=== PATIENT | female | born 1985 | race Caucasian/White ===

== ENCOUNTER 2022-07-20 13:16 | Outpatient (CLI) | payer OTHER, SELFPAY ==
--- OUTSIDE RECORDS SUMMARY | 2022-07-20 13:19 | XMS_ITS | Encounter Summary ---
:1985 Author Organization [place] Address [address] [place] [address] Care Team Providers Name Role Phone Maty Barrett MD Primary Care Provider Reason for Referral Diagnostic Imaging Mammo (Routine) - Pending Review Specialty Diagnoses / Procedures Referred By Contact Refer red To Contact Diagnoses Right axillary swelling Stephanie Barlow MD Procedures MA Diagnostic Bilateral w/Siddharth [place] PIG LEAD MELTER HELPER [address] [facility] [address] [address] [place], [place] [address] Referral ID Status Reason Start Date Expiration Date Visits V isits Requested Authorized [id number] Pending 09/04/2021 09/04/2022 1 1 Review TROMECHANICAL TECHNOLOGIST Reason for Visit Diagnostic Imaging Mammo (Routine) - Pending Review Specialty Diagnoses / Procedures Referred By Contact Refer red To Contact Diagnoses Right axillary swelling Stephanie Barlow MD Procedures MA Diagnostic Bilateral w/Siddharth [place] PIG LEAD MELTER HELPER [address] [place], [place] [address] Referral ID Status Reason Start Date Expiration Date Visits V isits Requested Authorized [id number] Pending 09/04/2021 09/04/2022 1 1 Review Encounter Details Date Type Department Care Team Description 09/11/2021 Hospital Encounter [facility] Stephanie Barlow Right axillary [facility], MD swelling Center [facility] PIG LEAD MELTER HELPER [address] [facility], [address] [place] [address] [phone] Social History Tobacco Use Types Packs/Day Years Used Date Smoking Tobacco: Never Smokeless Tobacco: Never Alcohol Use Standard Drinks/Week Comments No 0 (1 standard drink = 0.6 oz pure alcoho l) Sex Assigned at Date Recorded Not on file COVID-19 Exposure Response Date Recorded In the last month, have you been in contact with No / Unsure 09/11/2021 1:25 PM ELECTROMECHANICAL TECHNOLOGIST someone who was confirmed or suspected to have Coronavirus / COVID-19? documented as of this encounter Medications at Time of Discharge Medication Sig Dispensed Refills Start Date End Date Cranberry 1000 MG CAPS 0 ibuprofen (ADVIL,MOTRIN) Take 1 tablet (600 0 600 MG tabletIndications: mg) by mouth every 6 (spontaneous vaginal hours as needed for delivery) other (cramping) Vit-Fe 0 Fumarate-FA ( VITAMINS PO) documented as of this encounter Plan of Treatment Not on filedocumented as of this encounter Procedures Procedure Name Priority Date/Time Associated Comments Diagnosis MA DIAGNOSTIC Routine 09/11/2021 1:49 PM Right axillary Result s for this BILATERAL W/ SIDDHARTH ELECTROMECHANICAL TECHNOLOGIST swelling procedure are in the results section. documented in this encounter Results MA Diagnostic Bilateral w/Siddharth (09/11/2021 1:49 PM ELECTROMECHANICAL TECHNOLOGIST) Anatomical Region Laterality Modality Breast Bilateral Mammography Specimen (Source) Anatomical Location Collection Method / Collectio n Time Received Time / Laterality Volume Impressions 09/11/2021 2:39 PM ELECTROMECHANICAL TECHNOLOGIST IMPRESSION: BI-RADS CATEGORY: 1 - ??Negative No evidence of malignancy. Results were discussed with the patient during her appointment. As long as her p hysical examination remains stable, routine clinical follow-up would be recommended. RECOMMENDED FOLLOW-UP: Clinical follow-u torrey BROWN MD Narrative 09/11/2021 2:39 PM ELECTROMECHANICAL TECHNOLOGIST MA DIAGNOSTIC BILATERAL W/ SIDDHARTH, US AXILLARY RIGHT - ??09/11/2021 2:38 PM HISTORY: ??Right axillary lump. COMPARISON: ??None. BREAST DENSITY: Heterogeneously dense. FINDINGS: ??Standard bilateral diagnosti c views were obtained, including tomosynthesis. The pattern of glandular tissue is symmetric. There is no mammographic evidence of mal ignancy in either breast. Further evaluation with targeted ultraso und shows only normal glandular tissue in the area of concern. There is no suspicious ultrasound abnormality. Stephanie Barlow MD IMG MAMMOGRAPHY ORDERABLES documented in this encounter Visit Diagnoses Diagnosis Right axillary swelling Swelling of limb documented in this encounter Care Teams Workforce Management Manager Relationship Specialty Start Date End Date Maty Barrett MD PCP - General contact clerk 06/08/17 [facility] AIDES TEACHER CONSULT [address] [phone] documented as of this encounter
--- OUTSIDE RECORDS SUMMARY | 2022-07-20 13:19 | XMS_ITS | Encounter Summary ---
:1985 Author Organization [place] Address [address] [place] [address] Care Team Providers Name Role Phone Maty Barrett MD Primary Care Provider Reason for Referral Diagnostic Imaging Ultrasound (Routine) - Pending Review Specialty Diagnoses / Procedures Referred By Contact Refer red To Contact Diagnoses Right axillary swelling Stephanie Barlow MD Procedures US Axillary Right [place] EMPLOYEE RELATIONS DIRECTOR [address] [facility] [address] [place], [place] [address] Referral ID Status Reason Start Date Expiration Date Visits V isits Requested Authorized [id number] Pending 09/04/2021 09/04/2022 1 1 Review TAPPER Reason for Visit Diagnostic Imaging Ultrasound (Routine) - Pending Review Specialty Diagnoses / Procedures Referred By Contact Refer red To Contact Diagnoses Right axillary swelling Stephanie Barlow MD Procedures US Axillary Right SOUTHDALE EMPLOYEE RELATIONS DIRECTOR [address] [place], [place] [address] Referral ID Status Reason Start Date Expiration Date Visits V isits Requested Authorized [id number] Pending 09/04/2021 09/04/2022 1 1 Review Encounter Details Date Type Department Care Team Description 09/11/2021 Hospital Encounter [facility] Stephanie Barlow Right axillary Max Jama MD swelling Center [facility] EMPLOYEE RELATIONS DIRECTOR [address] [facility], [address] [place] [address] [phone] Social History Tobacco Use Types Packs/Day Years Used Date Smoking Tobacco: Never Smokeless Tobacco: Never Alcohol Use Standard Drinks/Week Comments No 0 (1 standard drink = 0.6 oz pure alcoho l) Sex Assigned at Date Recorded Not on file COVID-19 Exposure Response Date Recorded In the last month, have you been in contact with No / Unsure 09/11/2021 1:25 PM NUT TAPPER someone who was confirmed or suspected to [...] encounter Procedures Procedure Name Priority Date/Time Associated Diagnosis Comme nts US AXILLARY RIGHT Routine 09/11/2021 2:01 PM Right axillary Re sults for this NUT TAPPER swelling procedure are i n the results section. documented in this encounter Results US Axillary Right (09/11/2021 2:01 PM NUT TAPPER) Anatomical Region Laterality Modality Breast Right Ultrasound Specimen (Source) Anatomical Location Collection Method / Collectio n Time Received Time / Laterality Volume Impressions 09/11/2021 2:39 PM NUT TAPPER IMPRESSION: BI-RADS CATEGORY: 1 - ??Negative No evidence of malignancy. Results were discussed with the patient during her appointment. As long as her p hysical examination remains stable, routine clinical follow-up would be recommended. RECOMMENDED FOLLOW-UP: Clinical follow-u pSonja BROWN MD Narrative 09/11/2021 2:39 PM NUT TAPPER MA DIAGNOSTIC BILATERAL W/ AFUA, US AXILLARY RIGHT - ??09/11/2021 2:38 PM [...] suspicious ultrasound abnormality. Stephanie Barlow MD IMG US ORDERABLES documented in this encounter Visit Diagnoses Diagnosis Right axillary swelling Swelling of limb documented in this encounter Care Teams Label Printer Relationship Specialty Start Date End Date Maty Barrett MD PCP - General log skidder 06/08/17 [facility] BOARDMARKER CONSULT [address] [address] documented as of this encounter
--- OUTSIDE RECORDS SUMMARY | 2022-07-20 13:19 | XMS_ITS | Clinical Summary ---
:1985 Author Organization [place] Address [address] [place] [address] Care Team Providers Name Role Phone Maty Barrett MD Primary Care Provider [phone] Allergies No known active allergies Medications Medication Sig Dispensed Refills Start Date End Date Status ibuprofen Take 1 tablet (600 0 03/26/2016 Active (ADVIL,MOTRIN) 600 MG mg) by mouth every tabletIndications: 6 hours as needed (spontaneous vaginal for other delivery) (cramping) Additional Information Patient not taking. Reported on 08/30/2018 Cranberry 1000 MG CAPS 0 Active Vit-Fe Fumarate-FA ( VITAMINS PO) 0 Active Active Problems Problem Noted Date Vaginal delivery 07/19/2020 Uterine contractions during 07/18/2020 Supervision of high-risk 03/24/2016 (spontaneous vaginal delivery) 03/24/2016 Indication for care in labor or delivery 03/23/2016 Resolved Problems Problem Noted Date Resolved Date Urinary frequency 03/07/2018 05/11/2018 Urinary urgency 03/07/2018 05/11/2018 Encounters Date Type Specialty Care Team Description 06/12/2022 Office Visit Urgent Care Deon Weiner PA-C Acute bilateral low back pain without sciatica (Primary Dx); Suprapubic pain , acute 06/12/2022 Travel from Last 3 Months Immunizations Name Administration Dates Next Due Influenza Vaccine IM > 6 months Valent IIV4 07/02/2020 (Alfuria,Fluzone) Family History Medical History Relation Comments Cancer Maternal Grandfather Diabetes Maternal Grandmother Relation Status Comments Brother Alive Father Alive Maternal Grandfather Maternal Grandmother Alive Mother Alive Paternal Grandfather Paternal Grandmother Sister 1 Alive Sister 2 Alive Sister 3 Alive Social History Tobacco Use Types Packs/Day Years Used Date Smoking Tobacco: Never Smokeless Tobacco: Never Alcohol Use Standard Drinks/Week Comments No 0 (1 standard drink = 0.6 oz pure alcoho l) Sex Assigned at Date Recorded Not on file Last Filed Vital Signs Vital Sign Reading Time Taken Comments Blood Pressure 120/70 06/12/2022 4:23 PM CDT Pulse 100 06/12/2022 4:23 PM CDT Temperature 36.7 ??C (98 ??F) 06/12/2022 4:23 PM CDT Respiratory Rate 18 07/20/2020 9:28 AM CDT Oxygen Saturation 98% 06/12/2022 4:23 PM CDT Inhaled Oxygen Concentration - - Weight 54.4 kg (120 lb) 06/12/2022 4:23 PM CDT Height 170.2 cm (5' 7) 07/18/2020 3:06 PM CDT Body Mass Index 18.79 07/18/2020 3:06 PM CDT Plan of Treatment Health Maintenance Due Date Last Done Comments ADVANCE CARE PLANNING 1985 ANNUAL REVIEW OF HM ORDERS 1985 HEPATITIS C SCREENING 2002 PAP 2005 YEARLY PREVENTIVE VISIT 06/21/2020 06/21/2019 PHQ-2 (once per calendar 10/10/2021 year) COVID-19 Vaccine (3 - Booster 12/13/2021 10/18/2021, for Pfizer series) 09/27/2021 INFLUENZA VACCINE (#1) 2022 07/02/2020, 06/20/2019, 09/02/2015 DTAP/TDAP/TD IMMUNIZATION (3 04/29/2030 04/29/2020, - Td or Tdap) 02/10/2016 HIV SCREENING Completed 09/02/2015 HEPATITIS B IMMUNIZATION Aged Out No long er eligible based on patient's age to complete this to pic IPV IMMUNIZATION Aged Out No longer eligi ble based on patient's age to complete this to pic MENINGITIS IMMUNIZATION Aged Out No longe r eligible based on patient's age to complete this to pic Pneumococcal Vaccine: Aged Out No longer eligible based Pediatrics (0 to 5 Years) and on patient's age to At-Risk Patients (6 to 64 comple te this topic Years) Procedures Procedure Name Priority Date/Time Associated Comments Diagnosis URINE CULTURE Routine 06/12/2022 4:34 PM Results for this CDT procedure are i n the results section. URINE MICROSCOPIC Routine 06/12/2022 4:21 PM Resu lts for this CDT procedure are i n the results section. UA MACROSCOPIC WITH Routine 06/12/2022 4:21 PM Re sults for this REFLEX TO MICRO AND CDT procedur e are in CULTURE the results section. from Last 3 Months Results Urine Culture (06/12/2022 4:34 PM CDT) [facility] Method Time Signature Culture <10,000 CFU/mL CRISTOBAL 06/14/2022 [facility] IDD Urogenital 1:29 PM CDT LABORATORY pauly Specimen Anatomical Collection Method Collection Time Receive d Time (Source) Location / / Volume Laterality Urine MID-STREAM URINE Non-blood 06/12/2022 4:34 PM 06/12 4:34 SPECIMEN / Unknown Collection / CDT PM CDT Unknown Deon Weiner PA-C LAB - MICRO GENERAL ORDERABL ES Performing Organization Address City/State/ZIP Code Phon e Number U[facility] IDD LABORATORY [facility] [place] [address] Diag. Lab [address] [facility], Room [address]297 (ABNORMAL) Urine Microscopic (06/12/2022 4:21 PM CDT) [facility] Method Time Signature Bacteria Urine Few (A) None Seen CRISTOBAL 06/12/2022 [facility] LAB[facility]ATORY /HPF 4:26 PM CDT RBC Urine 5-10 (A) 0-2 /HPF CRISTOBAL 06/12/2022 [facility] /HPF 4:26 PM CDT WBC Urine 0-5 0-5 /HPF CRISTOBAL 06/12/2022 [facility] /HPF 4:26 PM CDT Squamous Few (A) None Seen CRISTOBAL 06/12/2022 [facility] LABORATORY Epithelials /LPF 4:26 PM CDT Urine Specimen Anatomical Collection Method Collection Time Receive d Time (Source) Location / / Volume Laterality Urine MID-STREAM URINE Non-blood 06/12/2022 4:21 PM 06/12 4:21 SPECIMEN / Unknown Collection / CDT PM CDT Unknown Narrative [facility] - 06/12/2022 4:26 PM CDT Urine Culture not indicated Francisca Chappell PA-C LAB - URINE ORDERABLES Performing Organization Address City/State/ZIP Code [place] [address] Lab [address] [facility] Lab (no room number, 1st floor of clinic) [place] [address], [facility] [address] [facility] Lab (no room number, 1st floor of clinic) (ABNORMAL) UA Macro with Reflex to Micro and Culture - lab collect (06/12/2022 4:21 PM CDT) [facility] Method Time Signature Color Urine Yellow Colorless, 06/12/2022 LABORATORY Straw, 4:23 PM CDT Light Yellow, Yellow Appearance Urine Clear Clear 06/12/2022 LV LABORATOR Y 4:23 PM CDT Glucose Urine Negative Negative 06/12/2022 LABORATORY mg/dL 4:23 PM CDT Bilirubin Urine Negative Negative 06/12/2022 LABORATORY 4:23 PM CDT Ketones Urine 80 (A) Negative 06/12/2022 LABORATORY mg/dL 4:23 PM CDT Specific [place] 1.025 1.003 - 06/12/2022 LV LABORATOR Y Urine 1.035 4:23 PM CDT Blood Urine Moderate Negative 06/12/2022 LABORATORY (A) 4:23 PM CDT pH Urine 5.5 5.0 - 7.0 06/12/2022 [facility] LAB[facility]AT[facility] 4:23 PM CDT Protein Albumin Negative Negative 06/12/2022 LABORATORY Urine mg/dL 4:23 PM CDT Urobilinogen 0.2 0.2, 1.0 06/12/2022 LABORATORY Urine E.U./dL 4:23 PM CDT Nitrite Urine Negative Negative 06/12/2022 LABORATORY 4:23 PM CDT Leukocyte Negative Negative 06/12/2022 LABORATORY Esterase Urine 4:23 PM CDT Specimen Anatomical Collection Method Collection Time Receive d Time (Source) Location / / Volume Laterality Urine MID-STREAM URINE Non-blood 06/12/2022 4:21 PM 06/12 4:21 SPECIMEN / Unknown Collection / CDT PM CDT Unknown Francisca Chappell PA-C LAB - URINE ORDERABLES Performing Organization Address City/State/ZIP Code Phon e Number LV LABORATORY [facility] [place] [phone] Lab [address] [facility] (no room number, 1st floor of clinic) [place] [address], [facility] [address] [facility] (no room number, 1st floor of clinic) from Last 3 Months Insurance Payer Benefit Plan / Subscriber ID Effective Phone Address [employer] Group Dates [facility] [id number] 2021-Pres [phone] [address] O OPEN ACCESS ent [address] [place] [address] Care Teams Parks Worker Relationship Specialty Start Date End Date Maty Barrett MD PCP - General dramatic director 06/08/17 [facility] TOY ELECTRIC TRAIN REPAIRER CONSULT [address] [place] [address]
--- OUTSIDE RECORDS SUMMARY | 2022-07-20 13:19 | XMS_ITS | Encounter Summary ---
:1985 Author Organization [place] Address [address] [place] [address]. [place] [address] Care Team Providers Name Role Phone Maty Barrett MD Primary Care Provider [phone] Reason for Visit Reason Comments UTI Slight pelvic pressure and b ack pain/ Tuesday Encounter Details Date Type Department Care Team Description 06/12/[address] [facility] Deon Weiner, Acute bilateral low back pain without sciatica (Primary Dx); Urgent Care PA-C Suprapubic pain, acute [facility] [address] [place], [place] [address] [address] [place], [place] [address] (Wo rk) Social History Tobacco Use Types Packs/Day Years Used Date Smoking Tobacco: Never Smokeless Tobacco: Never Alcohol Use Standard Drinks/Week Comments No 0 (1 standard drink = 0.6 oz pure alcoho l) Sex Assigned at Date Recorded Not on file COVID-19 Exposure Response Date Recorded In the last 10 days, have you been in contact with No / Unsu re 06/12/2022 4:13 PM CDT someone who was confirmed or suspected to have Coronavirus/COVID-19? documented as of this encounter Last Filed Vital Signs Vital Sign Reading Time Taken Comments Blood Pressure 120/70 06/12/2022 4:23 PM CDT Pulse 100 06/12/2022 4:23 PM CDT Temperature 36.7 ??C (98 ??F) 06/12/2022 4:23 PM CDT Respiratory Rate - - Oxygen Saturation 98% 06/12/2022 4:23 PM CDT Inhaled Oxygen Concentration - - Weight 54.4 kg (120 lb) 06/12/2022 4:23 PM CDT Height - - Body Mass Index 18.79 07/18/2020 3:06 PM CDT documented in this encounter Progress Notes Deon Weiner PA-C - 06/12/2022 4:10 PM CDT Images from the original note were not included. Assessment & Plan 1. Acute bilateral low back pain without sciatica Mild intermittent 2. Suprapubic pain, acute Mild intermittent UA shows few bacteria with some blood. Could be more of a MSK problem. Trial of anti-bacterial for symptoms while UC is pending. Follow up in clinic if not improving over the next week. Deon Weiner PA-C [facility] Tessa Soto is a 37 year old female who presents to clinic today for the following health issues: Chief Complaint Patient presents with ??? UTI Slight pelvic pressure and back pain/ Tuesday HPI Here today for intermittent back and lower abdominal pain intermittent over the past 3-4 days. No dysuria. Yesterday some increased urination. No urgency of urination. No vaginal discharge. No pinknessor redness. No fever. No fatigue. No menstruation. History of hematuria at times in the past in the urine. Review of Systems Objective BP 120/70 (BP Location: Right arm) Pulse 100 Temp 98 ??F (36.7 ??C) (Tympanic) Wt 54.4 kg (120lb) SpO2 98% BMI 18.79 kg/m?? Physical Exam Abdominal: General: Abdomen is flat. Bowel sounds are normal. Palpations: Abdomen is soft. Tenderness: There is abdominal tenderness. There is no right CVA tenderness or left CVA tenderness. documented in this encounter Plan of Treatment Not on [...] e are in CULTURE the results section. documented in this encounter Results Urine Culture (06/12/2022 4:34 PM CDT) [facility] Method Time Signature Culture <10,000 CFU/mL CRISTOBAL 06/14/2022 [facility] ID[facility] Urogenital 1:29 PM CDT LABORATORY pauly Specimen Anatomical Collection Method Collection Time Receive d Time (Source) Location / / Volume Laterality Urine MID-STREAM URINE Non-blood 06/12/2022 4:34 PM 06/12 4:34 SPECIMEN / Unknown Collection / CDT PM CDT Unknown Deon Weiner PA-C LAB - MICRO GENERAL ORDERABL ES Performing Organization Address City/[facility]/ZIP Code Phon e Number UU IDD LABORATORY [facility] [place] [address] Diag. Lab [address] [facility], Room [address]297 (ABNORMAL) Urine Microscopic (06/12/2022 4:21 PM CDT) [facility] Method Time Signature Bacteria Urine Few [...] City/State/ZIP Code Phon [place] [address] Lab [address] [facility] Lab (no room number, 1st floor of clinic) [place] [address], [facility] [address] [facility] Lab (no room number, 1st floor of clinic) (ABNORMAL) UA Macro with Reflex to Micro and Culture - lab collect (06/12/2022 4:21 PM CDT) [facility] gist Method Time Signature Color Urine Yellow Colorless, 06/12/2022 [facility] LABORATORY Straw, 4:23 PM CDT Light Yellow, Yellow Appearance Urine Clear Clear 06/12/2022 LV LABORATOR Y 4:23 PM CDT Glucose Urine Negative Negative 06/12/2022 LABORATORY mg/dL 4:23 PM CDT Bilirubin Urine Negative Negative 06/12/2022 LV LABORATORY 4:23 PM CDT Ketones Urine 80 (A) Negative 06/12/2022 LABORATORY mg/dL 4:23 PM CDT Specific [place] 1.025 1.003 - 06/12/2022 LV LABORATOR Y Urine 1.035 4:23 PM CDT Blood Urine Moderate Negative 06/12/2022 LABORATORY (A) 4:23 PM CDT pH Urine 5.5 5.0 - 7.0 06/12/2022 LV LABORATORY 4:23 PM CDT Protein Albumin Negative Negative 06/12/2022 LV LABORATORY Urine mg/dL 4:23 PM CDT Urobilinogen 0.2 0.2, 1.0 06/12/2022 LABORATORY Urine E.U./dL 4:23 PM CDT Nitrite Urine Negative Negative 06/12/2022 [facility] LAB[facility] 4:23 PM CDT Leukocyte Negative Negative 06/12/2022 LV LABORATORY Esterase Urine 4:23 PM CDT Specimen Anatomical Collection Method Collection Time Receive d Time (Source) Location / / Volume Laterality Urine MID-STREAM URINE Non-blood 06/12/2022 4:21 PM 06/12 4:21 SPECIMEN / Unknown Collection / CDT PM CDT Unknown Francisca Chappell PA-C LAB - URINE ORDERABLES Performing Organization Address City/State/ZIP Code [place] [address] Lab [address] [facility] Lab (no room number, 1st floor of clinic) [place] [address], [facility] [address] [facility] Lab (no room number, 1st floor of clinic) documented in this encounter Visit Diagnoses Diagnosis Acute bilateral low back pain without sc iatica - Primary Suprapubic pain, acute Abdominal pain, other specified site documented in this encounter Care Teams Mainframe Applications Developer Relationship Specialty Start Date End Date Maty Barrett MD PCP - General digital marketing strategist 06/08/17 [facility] STRAPPER AND BUFFER CONSULT [address] [address] documented as of this encounter
--- OUTSIDE RECORDS SUMMARY | 2022-07-20 13:19 | XMS_ITS | Encounter Summary ---
:1985 Author Organization [place] Address [address] [place] [address] Care Team Providers Name Role Phone Maty Barrett MD Primary Care Provider [phone] Encounter Details Date Type Department Care Team Description 09/11/2021 Travel Social History Tobacco Use Types Packs/Day Years Used Date Smoking Tobacco: Never Smokeless Tobacco: Never Alcohol Use Standard Drinks/Week Comments No 0 (1 standard drink = 0.6 oz pure alcoho l) Sex Assigned at Date Recorded Not on file COVID-19 Exposure Response Date Recorded In the last month, have you been in contact with No / Unsure 09/11/2021 1:25 PM LACQUERER someone who was confirmed or suspected to have Coronavirus / COVID-19? documented as of this encounter Plan of Treatment Not on filedocumented as of this encounter Visit Diagnoses Not on filedocumented in this encounter Care Teams Rig Operator Relationship Specialty Start Date End Date Maty Barrett MD PCP - General child nutrition assistant 06/08/17 [facility] FINISHING MACHINE OPERATOR CONSULT [address] [place] [address] documented as of this encounter
--- OUTSIDE RECORDS SUMMARY | 2022-07-20 13:19 | XMS_ITS | Encounter Summary ---
:1985 Author Organization [place] Address [address] [place] [address] Care Team Providers Name Role Phone Maty Barrett MD Primary Care Provider [phone] Encounter Details Date Type Department Care Team Description 06/12/2022 Travel Social History Tobacco Use Types Packs/Day [...] have Coronavirus/COVID-19? documented as of this encounter Plan of Treatment Not on filedocumented as of this encounter Visit Diagnoses Not on filedocumented in this encounter Care Teams Numerical Analysis Group Manager Relationship Specialty Start Date End Date Maty Barrett MD PCP - General executive marketing assistant 06/08/17 [facility] CONSTRUCTION SCHEDULER CONSULT [address] [place] [address] documented as of this encounter
--- OUTSIDE RECORDS SUMMARY | 2022-07-20 13:20 | XMS_ITS | Encounter Summary ---
:1985 Author Organization [facility] Address [address] [place] [address] Care Team Providers Name Role Phone Maty Barrett MD Primary Care Provider [phone] Encounter Details Date Type Department Care Team Description 07/18/2020 Travel Social History Tobacco Use Types Packs/Day Years Used Date Smoking Tobacco: Never Smokeless Tobacco: Never Alcohol Use Standard Drinks/Week Comments No 0 (1 standard drink = 0.6 oz pure alcoho l) Sex Assigned at Date Recorded Not on file documented as of this encounter Plan of Treatment Not on filedocumented as of this encounter Visit Diagnoses Not on filedocumented in this encounter Care Teams Pilates Coordinator Relationship Specialty Start Date End Date Maty Barrett MD PCP - General contract technician 06/08/17 [facility] CHIEF STEWARD/STEWARDESS CONSULT [address] [phone] documented as of this encounter
--- OUTSIDE RECORDS SUMMARY | 2022-07-20 13:20 | XMS_ITS | Encounter Summary ---
:1985 Author Organization [facility] Address [address] [place] [address]. [place] [address] Care Team Providers Name Role Phone Maty Barrett MD Primary Care Provider [phone] Reason for Visit ANI Physical Therapy (Routine) - Closed Specialty Diagnoses / Procedures Referred By Contact Refer red To Contact Physical Therapy Diagnoses >4 Urgency / FernandoCaity See MD David @ UROLOGIC PHY JANINE / BCBS FernandoCaity See Breonna Hernandez Patricia, PT Procedures FWO INITIAL [address] [address] [place], [place] [address] Referral ID Status Reason Start Date Expiration Date Visits V isits Requested Authorized ANI/BC/URGENCY Closed 03/07/2018 10/09/2018 40 38 Encounter Details Date Type Department Care Team Description 03/07/2018 Therapy Visit [facility] Mckenzie Ravi Urin ary frequency (Primary Dx); Rehabilitation Services PT Urinary urgency [place] [id number] [place] [id number] Social History Tobacco Use Types Packs/Day Years Used Date Smoking Tobacco: Never Smokeless Tobacco: Never Alcohol Use Standard Drinks/Week Comments No 0 (1 standard drink = 0.6 oz pure alcoho l) Sex Assigned at Date Recorded Not on file documented as of this encounter Progress Notes Mckenzie Ravi, PT - 03/07/2018 10:50 AM CDT [facility] Initial Evaluation Subjective: Patient is a 32 year old female presenting with rehab pelvic hpi. The history is provided by the patient. 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 Patient has chief complaint of intermittent urinary urge and frequency which started suddenly and insidiously last January 2017. She initially had pressure in lower abdomen, sometimes after voiding. She was tested for bladder infections (negative). She has always had a small bladder and get up 1x/night. History of vaginal delivery 2 years ago. History of low back pain, L>R, for many years, with scoliosis and no radiating symptoms. She has intermittent low back pain with prolonged standing. Nodyspareunia.. Patient reports pain: Lower lumbar spine. Pain is described as aching and is intermittent and reported as 2/10. Since onset symptoms are gradually improving. General health as reported by patient is excellent. Objective: System Lumbar/SI Evaluation ROM: AROM Lumbar: Flexion: To ankles Ext: 70% pain Side Bend: Left: 90% pulls Right: 90% pulls Rotation: Left: 100% Right: 100% Side [place]: Left: 80% pulls Right: 90% Lumbar Myotomes: normal Lumbar DTR's: normal Lumbar Dermtomes: normal Pelvic Dysfunction Evaluation: Bladder/Pelvic Problems: Storage Problem: Frequency and urgency Diagnostic Tests: UA/Urine Sample: Negative; history of UTI 3 years ago, none recently Flexibility: normal Pelvic Clock Exam: Ischiocavernosis pain: - Bulbocavernosis pain: - Transverse Perineal: - Levator ANI: - Perineal Body: - External Assessment: Skin Condition: Normal Scars: Well healed Bearing Down/Coughing: Cystocele Tissue Symmetry: Normal Introitus: Normal Muscle Contraction/Perineal Mobility: Elevation and urogential triangle descent Internal Assessment: Internal assessment pelvic: moderate tenderness left levator ani; mild tenderness right levator ani anteriorly only. Sensory Exam: Normal Contraction/Grade: Good squeeze, good hold with lift, repeatable (4) Additional History: Delivery History: Vaginal delivery Number of Pregnancies: 1 Number of Live Births: 1 General ROS Assessment/Plan: Patient is a 32 year old female with pelvic complaints. Patient has the following significant findings with corresponding treatment plan. Diagnosis 1: Urinary frequency and urge Pain - self management and home program Decreased ROM/flexibility - manual therapy, therapeutic exercise and home program Impaired muscle performance - neuro re-education and home program Decreased function - therapeutic activities and home program Therapy Evaluation Codes: 1) History comprised of: Personal factors that impact the plan of care: None. Comorbidity factors that impact the plan of care are: None. Medications impacting care: None. 2) Examination of Body Systems comprised of: Body structures and functions that impact the plan of care: Lumbar spine and Pelvis. Activity limitations that impact the plan of care are: Standing, Frequency and Urgency. 3) Clinical presentation characteristics are: Stable/Uncomplicated. 4) Decision-Making Low complexity using standardized patient assessment instrument and/or measureable assessment of functional outcome. Cumulative Therapy Evaluation is: Low complexity. Previous and current functional limitations: (See Goal Flow Sheet for this information) Short term and buttermaker continuous churn goals: (See Goal Flow Sheet for this information) Communication ability: Patient appears to be able to clearly communicate and understand verbal and written communication and follow directions correctly. Treatment Explanation - The following has been discussed with the patient: RX ordered/plan of care Anticipated outcomes Possible risks and side effects This patient would benefit from PT intervention to resume normal activities. Rehab potential is good. Frequency: 1 X week, once daily Duration: for 8 weeks Discharge Plan: Achieve all LTG. Independent in home treatment program. Reach maximal therapeutic benefit. Please refer to the daily flowsheet for treatment today, total treatment time and time spent performing 1:1 timed codes. Amy Soriano PTA - 03/07/2018 10:50 AM CDT [facility] Initial Evaluation Subjective: Patient is a 32 year old female presenting with rehab left ankle/foot hpi. Other surgeries include: Other (jaw surgery). Medication history: control. Current occupationis facility coordinator/HR. Primary job tasks include: Prolonged sitting (computer work). Red flags: Changes in bowel/bladder. Objective: System Physical Exam General ROS Assessment/Plan: documented in this encounter Plan of Treatment Not on filedocumented as of this encounter Procedures Procedure Name Priority Date/Time Associated Diagnosis Comme nts [facility] SELF CARE MNGMENT Routine 03/07/2018 12:16 PM Urinar y frequency TRAINING CDT Urinary urgency [facility] THERAPEUTIC Routine 03/07/2018 12:16 PM Urinary freq uency EXERCISES CDT Urinary urgency documented in this encounter Visit Diagnoses Diagnosis Urinary frequency - Primary Urinary urgency Urgency of urination documented in this encounter Care Teams Venue Attendant Relationship Specialty Start Date End Date Maty Barrett MD PCP - General avionics system engineer 06/08/17 [facility] FORENSIC SERGEANT CONSULT [address] [phone] documented as of this encounter
--- OUTSIDE RECORDS SUMMARY | 2022-07-20 13:20 | XMS_ITS | Encounter Summary ---
:1985 Author Organization [facility] Address [address] [place] [address]. [place] [address] Care Team Providers Name Role Phone Maty Barrett MD Primary Care Provider [phone] Reason for Visit Reason Comments Cystoscopy Pt with a history of microsc opic hematuria and urgency-frequency syndrome here for a cysto. Encounter Details Date Type Department Care Team Description 08/30/2018 Office Visit [facility] Caity King See Urgenc y-frequency syndrome (Primary Dx); Urology Clinic Janine Hernandez MD Asymptomatic microscopic hematuria [phone] [facility] [address] [facility] [address] [facility] [address] [place] [address] [place], [place] [phone] [address] Social History Tobacco Use Types Packs/Day Years Used Date Smoking Tobacco: Never Smokeless Tobacco: Never Alcohol Use Standard Drinks/Week Comments No 0 (1 standard drink = 0.6 oz pure alcoho l) Sex Assigned at Date Recorded Not on file documented as of this encounter Last Filed Vital Signs Vital Sign Reading Time Taken Comments Blood Pressure 128/70 08/30/2018 3:12 PM MICROBIOLOGY LAB ANALYST Pulse - - Temperature - - Respiratory Rate - - Oxygen Saturation - - Inhaled Oxygen Concentration - - Weight 54.4 kg (120 lb) 08/30/2018 3:12 PM MICROBIOLOGY LAB ANALYST Height 167.6 cm (5' 6) 08/30/2018 3:12 PM MICROBIOLOGY LAB ANALYST Body Mass Index 19.37 08/30/2018 3:12 PM MICROBIOLOGY LAB ANALYST documented in this encounter Patient Instructions Patient InstructionsFok, Caity See David, MD - 08/30/2018 3:43 PM CST Per the AUA guidelines you can have yearly urinalyses. If you have two consecutive negative annual microscopic urinalyses no further urinalyses are indicated for this purpose. If you have persistent orrecurrent asymptomatic microscopic hematuria then would consider nephrology evaluation in the short t erm and urologic evaluation in 3-5 years AFTER YOUR CYSTOSCOPY ? You have just completed a cystoscopy, or cysto, which allowed your physician to learn more about your bladder (or to remove a stent placed after surgery). We suggest that you continue to avoid caffeine, fruit juice, and alcohol for the next 24 hours, however, you are encouraged to return to your normal activities. ? A few things that are considered normal after your cystoscopy: ?? * Small amount of bleeding (or spotting) that clears within the next 24 hours ?? * Slight burning sensation with urination ?? * Sensation to of needing to avoid more frequently ?? * The feeling of air in your urine ?? * Mild discomfort that is relieved with Tylenol ? Please contact our office promptly if you: ?? * Develop a fever above 101 degrees ?? * Are unable to urinate ?? * Develop bright red blood that does not stop ?? * Severe pain or swelling ? Please contact our office with any concerns or questions @[phone] OBIOLOGY LAB ANALYST documented in this encounter Progress Notes Caity King MD - 08/30/2018 3:00 PM CST August 30, 2018 Return visit Patient returns today for follow up of microscopic hematuria with a small lesion seen on last cystoscopy. She denies any changes in her health since last visit. BP 128/70 Ht 1.676 m (5' 6) Wt 54.4 kg (120 lb) BMI 19.37 kg/m2 She is comfortable, in no distress, non-labored breathing. Abdomen is soft, non- tender, non-distended. Normal external female genitalia. Negative MICROBIOLOGY LAB ANALYST. Pelvic exam is unremarkable. Cystoscopy Note: After informed consent was obtained patient was prepped and draped in the standard fashion. The flexible cystoscope was inserted into a normal appearing urethral meatus. The urotheliumwas carefully examined and there were no tumors, masses, stones, foreign bodies, or other urothelialabnormalities noted. Bilateral ureteral orifices were noted in the normal orthotopic position and both effluxed clear urine. The cystoscope was retroflexed and the bladder neck was unremarkable. The urethra was carefully examined upon removing the cystoscope and was unremarkable. Patient tolerated theprocedure without complications noted. A/P: 33 year old F with asymptomatic microscopic hematuria We discussed that at this time we would recommend observation. Per the AUA guidelines she can have yearly urinalyses. If she has two consecutive negative annual urinalyses no further urinalyses are indicated for this purpose. If she has persistent or recurrent asymptomatic microscopic hematuria then would consider nephrology evaluation in the short term and urologic evaluation in 3-5 years She will return as needed Caity King MD MPH Keymodule Assembly Machine Tender of Urology CC Patient Care Team: Maty Barrett MD as PCP - General (software quality automation engineer) OBIOLOGY LAB ANALYST documented in this encounter Nursing Notes Brielle Perdue CMA - 08/30/2018 3:00 PM CST Chief Complaint Patient presents with ??? Cystoscopy Pt with a history of microscopic hematuria and urgency-frequency syndrome here for a cysto. Brielle Perdue Invasive Procedure Safety Checklist: Procedure: Action: Complete sections and checkboxes as appropriate. Pre-procedure: 1. Patient ID Verified with 2 identifiers (Nohemi and or MRN) : YES 2. Procedure and site verified with patient/designee (when able) : YES 3. Accurate consent documentation in medical record : YES 4. H&P (or appropriate assessment) documented in medical record : YES H&P must be up to 30 days prior to procedure an updated within 24 hours of Procedure as applicable. 5. Relevant diagnostic and radiology test results appropriately labeled and displayed as applicable : YES 6. Blood products, implants, devices, and/or special equipment available for the procedure as applicable : YES 7. Procedure site(s) marked with provider initials [Exclusions: N/A] : NO 8. Marking not required. Reason : Yes Procedure does not require site marking Time Out: Time-Out performed immediately prior to starting procedure, including verbal and active participation of all team members addressing: YES 1. Correct patient identity. 2. Confirmed that the correct side and site are marked. 3. An accurate procedure to be done. 4. Agreement on the procedure to be done. 5. Correct patient position. 6. Relevant images and results are properly labeled and appropriately displayed. 7. The need to administer antibiotics or fluids for irrigation purposes during the procedure as applicable. 8. Safety precautions based on patient history or medication use. During Procedure: Verification of correct person, site, and procedure occurs any time the responsibility for care of the patient is transferred to another member of the care team. The following medication was given: MEDICATION: Uro-Jet ROUTE: Urethral SITE: Urethra via the meatus DOSE: 5 mL LOT #: [id number] INTERFACE DEVELOPER: [employer] EXPIRATION DATE: 12-[address] [facility]#: [id number] Was there drug waste? No Multi-dose vial: No Brielle Perdue CMA August 30, 2018 OBIOLOGY LAB ANALYST documented in this encounter Plan of Treatment Not on filedocumented as of this encounter Procedures Procedure Name Priority Date/Time Associated Comments Diagnosis HC CYSTOURETHROSCOPY Routine 08/30/2018 3:43 Urgency-frequency PM MICROBIOLOGY LAB ANALYST syndrome Asymptomatic microscopic hematuria URINE MACROSCOPIC ONLY Routine 08/30/2018 3:22 Urgency-frequen cy Results for this PM MICROBIOLOGY LAB ANALYST syndrome procedure are i n the results section. documented in this encounter Results (ABNORMAL) UA without Microscopic (08/30/2018 3:22 PM MICROBIOLOGY LAB ANALYST) [facility] Method Time Signature Color Urine Yellow 08/30/2018 [facility] 3:26 PM MICROBIOLOGY LAB ANALYST [facility] Appearance Urine Clear 08/30/2018 [facility] 3:26 PM MICROBIOLOGY LAB ANALYST [facility] Glucose Urine Negative NEG^Negat 08/30/2018 J[facility] evan mg/dL 3:26 PM MICROBIOLOGY LAB ANALYST [facility] Bilirubin Urine Negative NEG^Negat 08/30/2018 [facility] evan 3:26 PM MICROBIOLOGY LAB ANALYST [facility] Ketones Urine Negative NEG^Negat 08/30/2018 [facility] evan mg/dL 3:26 PM MICROBIOLOGY LAB ANALYST [facility] Specific [place] 1.010 1.003 - 08/30/2018 [facility] Urine 1.035 3:26 PM MICROBIOLOGY LAB ANALYST [facility] Blood Urine Trace (A) NEG^Negat 08/30/2018 [facility] evan 3:26 PM MICROBIOLOGY LAB ANALYST [facility] pH Urine 7.0 5.0 - 7.0 08/30/2018 [facility] pH 3:26 PM MICROBIOLOGY LAB ANALYST [facility] Protein Albumin Negative NEG^Negat 08/30/2018 [facility] Urine evan mg/dL 3:26 PM MICROBIOLOGY LAB ANALYST [facility] Urobilinogen 0.2 0.2 - 1.0 08/30/2018 [facility] Urine EU/dL 3:26 PM MICROBIOLOGY LAB ANALYST [facility] Nitrite Urine Negative NEG^Negat 08/30/2018 [facility] evan 3:26 PM MICROBIOLOGY LAB ANALYST [facility] Leukocyte Negative NEG^Negat 08/30/2018 [facility] Esterase Urine evan 3:26 PM MICROBIOLOGY LAB ANALYST [facility] Source Midstream 08/30/2018 [facility] Urine 3:24 PM MICROBIOLOGY LAB ANALYST [facility] Specimen (Source) Anatomical Collection Method Collection Time Re ceived Time Location / / Volume Laterality Examination of 08/30/2018 3:22 08/30/2018 3:24 midstream urine PM MICROBIOLOGY LAB ANALYST PM MICROBIOLOGY LAB ANALYST specimen (procedure) Caity King MD LAB - URINE ORDERABLES Performing Organization Address City/State/ZIP Code Phon e Number [facility] [address] [place] [phone] [address] documented in this encounter Visit Diagnoses Diagnosis 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
--- OUTSIDE RECORDS SUMMARY | 2022-07-20 13:20 | XMS_ITS | Encounter Summary ---
:1985 Author Organization [facility] Address [address] [place] [address]. [place] [address] Care Team Providers Name Role Phone Maty Barrett MD Primary Care Provider [phone] Reason for Visit ANI Physical Therapy (Routine) - Closed Specialty Diagnoses / Procedures Referred By Contact Refer red To Contact Physical Therapy Diagnoses >4 Urgency / Fernando, Caity See MD David @ UROLOGIC PHY JANINE / BCBS Fernando, Caity See Breonna Hernandez Patricia, PT Procedures F[facility] INITIAL [facility] [address] [address] [place], [place] [address] Referral ID Status Reason Start Date Expiration Date Visits V isits Requested Authorized ANI/BC/URGENCY Closed 03/07/2018 10/09/2018 40 38 Encounter Details Date Type Department Care Team Description 03/14/2018 Therapy Visit [facility] Mckenzie Ravi Urin ary frequency; Rehabilitation Services PT Urinary urgency [place] [id number] [place] [phone] Social History Tobacco Use Types Packs/Day Years Used Date Smoking Tobacco: Never Smokeless Tobacco: Never Alcohol Use Standard Drinks/Week Comments No 0 (1 standard drink = 0.6 oz pure alcoho l) Sex Assigned at Date Recorded Not on file documented as of this encounter Progress Notes Mckenzie Ravi PT - 03/14/2018 9:30 AM CDT Subjective: HPI Objective: System Physical Exam General ROS Assessment/Plan: DISCHARGE REPORT Progress reporting period is from 03/07/2018 to 03/14/2018. SUBJECTIVE Subjective: Patient reports decreased urge with urge suppression techniques.She now is getting up only 1x at night to void. She is voiding every 2 hours during the day instead of every hour. No change in low back pain with exercises. Current Pain level: 2/10 Initial Pain level: 2/10 OBJECTIVE Objective: Significant improvement in levator ani tightness. Good awareness of pelvic floor muscles and is able to relax them. Added core strength exercises and tolerated well ASSESSMENT/PLAN STG/LTGs have been met or progress has been made towards goals: Yes (See Goal flow sheet completed today.) Assessment of Progress: The patient's condition is improving. The patient's condition has potential to improve. Self Management Plans: Patient is independent in a home treatment program. Patient is independent in self management of symptoms. Brittany continues to require the following intervention to meet STG and LTG's: PT intervention is no longer required to meet STG/LTG. The patient is returning to your office for a recheck appointment. Recommendations: This patient is ready to be discharged from therapy and continue their home treatment program. Please refer to the daily flowsheet for treatment today, total treatment time and time spent performing 1:1 timed codes. documented in this encounter Miscellaneous Notes Addendum Note - Mckenzie Ravi PT - 05/11/2018 1:06 PM CDT Addended by: MCKENZIE RAVI on: 05/11/2018 01:06 PM Modules accepted: Orders documented in this encounter Plan of Treatment Not on filedocumented as of this encounter Procedures Procedure Name Priority Date/Time Associated Diagnosis Comme [facility] Z MANUAL THER Routine 03/14/2018 10:07 AM Urinary freq uency TECH,1+REGIONS,EA 15 MIN CDT Urinary urgency Z THERAPEUTIC Routine 03/14/2018 10:07 AM Urinary freq uency EXERCISES CDT Urinary urgency documented in this encounter Visit Diagnoses Diagnosis Urinary frequency Urinary urgency Urgency of urination documented in this encounter Care Teams Naturopathic Oncology Provider Relationship Specialty Start Date End Date Maty Barrett MD PCP - General design maker 06/08/17 [facility] PROSPECT MANAGER CONSULT [address] [phone] documented as of this encounter
--- OUTSIDE RECORDS SUMMARY | 2022-07-20 13:20 | XMS_ITS | Encounter Summary ---
:1985 Author Organization [facility] Address [address] [place] [address] Care Team Providers Name Role Phone Maty Barrett MD Primary Care Provider [phone] Reason for Referral Diagnostic Imaging CT Scan - Closed Specialty Diagnoses / Procedures Referred By Contact Refer red To Contact Diagnoses Microscopic hematuria Urinary frequency Caity King MD Procedures CT Abdomen Pelvis w/o & w Contrast [[id number]] [address] [place] [address] 51 Referral ID Status Reason Start Date Expiration Date Visits Requ ested Visits Authorized [id number] Closed 02/01/2018 02/01/2019 1 1 Reason for Visit Diagnostic Imaging CT Scan - Closed Specialty Diagnoses / Procedures Referred By Contact Refer red To Contact Diagnoses Microscopic hematuria Urinary frequency Caity King MD Procedures CT Abdomen Pelvis w/o & w Contrast [[id number]] [address] [place] [address] 00 Referral ID Status Reason Start Date Expiration Date Visits Requ ested Visits Authorized [id number] Closed 02/01/2018 02/01/2019 1 1 Encounter Details Date Type Department Care Team Description 02/21/2018 Hospital Encounter [facility] Caity King Microscopic hematuria; [facility] MD David Urinary frequency [id number] [facility] [address] [place] [address] [phone] Social History Tobacco Use Types Packs/Day Years Used Date Smoking Tobacco: Never Smokeless Tobacco: Never Alcohol Use Standard Drinks/Week Comments No 0 (1 standard drink = 0.6 oz pure alcoho l) Sex Assigned at Date Recorded Not on file documented as of this encounter Medications at Time of Discharge Medication Sig Dispensed Refills Start Date End Date Cranberry 1000 MG CAPS 0 ibuprofen (ADVIL,MOTRIN) Take 1 tablet (600 0 600 MG tabletIndications: mg) by mouth every (spontaneous vaginal 6 hours as needed delivery) for other (cramping) oxybutynin (DITROPAN) 5 TK 1 T PO D. 8 11/13/2017 08/21/2018 MG tablet oxybutynin (DITROPAN) 5 Take 1 tablet (5 30 tablet 11 201602/22/2018 MG tabletIndications: mg) by mouth daily Urinary frequency polyethylene glycol Take 17 g (1 510 g 1 03/26/201609/2018 (MIRALAX) capful) by mouth powderIndications: daily (spontaneous vaginal delivery) Vit-Fe Take 1 tablet by 0 09/2018 Fumarate-FA ( mouth daily MULTIVITAMIN PLUS IRON) 27-0.8 MG TABS tolterodine (DETROL LA) 4 Take 1 capsule (4 90 capsule 3 02/22/2018 MG 24 hr mg) by mouth daily capsuleIndications: Urinary frequency TRI-SPRINTEC Take 0.25 mg by 2 06/02/2017 020 0.18/0.215/0.25 MG-35 MCG mouth daily per tablet documented as of this encounter Plan of Treatment Not on filedocumented as of this encounter Procedures Procedure Name Priority Date/Time Associated Diagnosis Comme nts CT ABDOMEN PELVIS Routine 02/21/2018 8:13 AM Microscopic Resu lts for this W/O & W CONTRAST CDT hematuria procedure are in Urinary frequency the result s section. documented in this encounter Results CT Abdomen Pelvis w/o & w Contrast [[id number]] (02/21/2018 8:13 AM CDT) Anatomical Region Laterality Modality Abdomen/Pelvis, SUBRAD CT BODY, UMP CT ABDOMEN PELVIS, Computed Tomography RAD CT Specimen (Source) Anatomical Location Collection Method / Collectio n Time Received Time / Laterality Volume Impressions 02/21/2018 10:40 AM CDT IMPRESSION: ??No renal cyst or mass. No urinary tract calculi or hydronephrosis. Collecting systems, uret ers and bladder are unremarkable. Remainder of the abdomen a nd pelvis is within normal limits. LOWELL HAIDER MD Narrative 02/21/2018 10:[address] ABDOMEN AND PELVIS WITHOUT AND WITH CONTRAST ??02/21/2018 8:13 AM HISTORY: Microscopic hematuria. Urinary frequency. TECHNIQUE: Axial images are obtained fro m the lung bases to the symphysis without IV contrast. Following the administration of 100 mL of Isovue 370, additional axial images a re obtained from the lung bases to the symphysis during corticomed ullary and excretory phases. Coronal and sagittal reformatted images are also generated. Radiation dose for this scan was reduced using aut omated exposure control, adjustment of the mA and/or kV according to patient size, or iterative reconstruction technique. FINDINGS: ??The lung bases are clear. Abdomen: The liver, spleen, gallbladder, pancreas and adrenal glands are unremarkable. No enlarged lymph node s. The bowel is normal in caliber without obstruction. Right urinary tract: ??No renal masses o r cysts are present. No collecting system or ureteral stones are present. There is no hydronephrosis. Delayed imaging demonstr ates a normal right renal collecting system and ureter. Ureter is normal in caliber and course. Left urinary tract: ??No renal masses or cysts are present. No collecting system or ureteral stones are present. There is no hydronephrosis. Delayed imaging demonstr ates a normal left renal collecting system and ureter. Ureter is normal in caliber and course. Bladder: ??No bladder calculi are apprec iated. No bladder wall thickening or nodularity is appreciated. Delayed images show no evidence of filling defects. Pelvis: ??The uterus, adnexal regions an d rectum are unremarkable. No enlarged pelvic lymph nodes or free flui d. Bone window examination is unremarkable. Procedure Note Lowell Haider MD - 02/21/2018Form atting of this note might be different from the original. CT ABDOMEN AND PELVIS WITHOUT AND WITH C ONTRAST 02/21/2018 8:13 AM HISTORY: Microscopic hematuria. Urinary frequency. TECHNIQUE: Axial images are obtained fro m the lung bases to the symphysis without IV contrast. Following the administration of 100 mL of Isovue 370, additional axial images a re obtained from the lung bases to the symphysis during corticomed ullary and excretory phases. Coronal and sagittal reformatted images are also generated. Radiation dose for this scan was reduced using aut omated exposure control, adjustment of the mA and/or kV according to patient size, or iterative reconstruction technique. FINDINGS: The lung bases are clear. Abdomen: The liver, spleen, gallbladder, pancreas and adrenal glands are unremarkable. No enlarged lymph node s. The bowel is normal in caliber without obstruction. Right urinary tract: No renal masses or cysts are present. No collecting system or ureteral stones are present. There is no hydronephrosis. Delayed imaging demonstr ates a normal right renal collecting system and ureter. Ureter is normal in caliber and course. Left urinary tract: No renal masses or c ysts are present. No collecting system or ureteral stones are present. There is no hydronephrosis. Delayed imaging demonstr ates a normal left renal collecting system and ureter. Ureter is normal in caliber and course. Bladder: No bladder calculi are apprecia dima. No bladder wall thickening or nodularity is appreciated. Delayed images show no evidence of filling defects. Pelvis: The uterus, adnexal regions and rectum are unremarkable. No enlarged pelvic lymph nodes or free flui d. Bone window examination is unremarkable. IMPRESSION: No renal cyst or mass. No ur inary tract calculi or hydronephrosis. Collecting systems, uret ers and bladder are unremarkable. Remainder of the abdomen a nd pelvis is within normal limits. LOWELL HAIDER MD Caity King MD IMG CT ORDERABLES documented in this encounter Visit Diagnoses Diagnosis Microscopic hematuria Urinary frequency documented in this encounter Administered Medications Inactive Administered Medications - up to 3 most recent administrations Medication Order MAR Action Action Date Dose Rate Site 0.9% sodium chloride BOLUS New Bag 02/21/2018 8:02 AM CDT 65 mLs Intravenous, 1,000 mL, ONCE, On 02/21/18 at 0800, For 1 dose iopamidol (ISOVUE-370) solution 500 mL Given 02/21/2018 8:01 AM CDT 100 mLs 500 mL, Intravenous, ONCE, On Tue02/21/18 at 0800, For 1 dose documented in this encounter Care Teams Bullet Maker Relationship Specialty Start Date End Date Maty Barrett MD PCP - General rubber compounder mixer 06/08/17 [facility] ELECTROPHYSIOLOGIST CONSULT [address] [facility] [address] [place] [phone] documented as of this encounter
--- OUTSIDE RECORDS SUMMARY | 2022-07-20 13:20 | XMS_ITS | Encounter Summary ---
:1985 Author Organization [facility] Address [facility] [place] [address] Care Team Providers Name Role Phone Maty Barrett MD Primary Care Provider [phone] Reason for Visit Reason Comments RECHECK Pt with a history of urgency -frequency syndrome here for a four month f/u Encounter Details Date Type Department Care Team Description 06/28/2018 Office Visit [facility] Caity King See Urgenc y-frequency syndrome (Primary Dx); Urology Clinic Janine Hernandez MD Pelvic floor dysfunction; [address] [facility] [address] [facility] [address] Microscopic hematuria [address] [facility] [address] [place] [address] [place], [place] [phone] (Wo rk) Social History Tobacco Use Types Packs/Day Years Used Date Smoking Tobacco: Never Smokeless Tobacco: Never Alcohol Use Standard Drinks/Week Comments No 0 (1 standard drink = 0.6 oz pure alcoho l) Sex Assigned at Date Recorded Not on file documented as of this encounter Last Filed Vital Signs Vital Sign Reading Time Taken Comments Blood Pressure 110/78 06/28/2018 2:45 PM CDT Pulse - - Temperature - - Respiratory Rate - - Oxygen Saturation - - Inhaled Oxygen Concentration - - Weight 54.4 kg (120 lb) 06/28/2018 2:45 PM CDT Height 167.6 cm (5' 6) 06/28/2018 2:45 PM CDT Body Mass Index 19.37 06/28/2018 2:45 PM CDT documented in this encounter Patient Instructions Patient InstructionsCaity King See MD David - 06/28/2018 4:15 PM CDT Images from the original note were not included. Please return for a cystoscopy (procedure to look in the bladder) and pelvic exam It was a pleasure meeting with you today. Thank you for allowing me and my team the privilege of caring for you today. YOU are the reason we are here, and I truly hope we provided you with the excellent service you deserve. Please let us know if there is anything else we can do for you so that we can be sure you are leaving completely satisfied with your care experience. Cystoscopy Cystoscopy is a procedure that lets your doctor look directly inside your urethra and bladder. It can be used to: ?? Help diagnose a problem with your urethra, bladder, or kidneys. ?? Take a sample (biopsy) of bladder or urethral tissue. ?? Treat certain problems (such as removing kidney stones). ?? Place a stent to bypass an obstruction. ?? Take special X-rays of the kidneys. Based on the findings, your doctor may recommend other tests or treatments. What is a cystoscope? A cystoscope is a telescope-like instrument that contains lenses and fiberoptics (small glass wires that make bright light). The cystoscope may be straight and rigid, or flexible to bend around curves in the urethra. The doctor may look directly into the cystoscope, or project the image onto a monitor. Getting ready ?? Ask your doctor if you should stop taking any medicines before the procedure. ?? Follow any other instructions your doctor gives you. Tell your??doctor before the exam if you: ?? Take any medicines, such as aspirin or blood thinners ?? Have allergies to any medicines ?? Are The procedure Cystoscopy is done in the doctor???s office, surgery center, or hospital. The doctor and a nurse arepresent during the procedure. It takes only a few minutes, longer if a biopsy, X-ray, or treatment needs to be done. During the procedure: ?? You lie on an exam table on your back, knees bent and legs apart. You are covered with a drape. ?? Your urethra and the area around it are washed. Anesthetic jelly may be applied to numb the urethra. ?? The cystoscope is inserted. A sterile fluid is put into the bladder to expand it. You may feel pressure from this fluid. ?? When the procedure is done, the cystoscope is removed. After the procedure Once you???re home: ?? Drink plenty of fluids. ?? You may have burning or light bleeding when you urinate--this is normal. ?? Medicines may be prescribed to ease any discomfort or prevent infection. Take these as directed. ?? Call your doctor if you have heavy bleeding or blood clots, burning that lasts more than a day, afever over??100??F?? (38?? C), or trouble urinating. Date Last Reviewed: 10/10/2016 ?? [phone] [employer]. [address] [place] [address]. All rights reserved. This information is not intended as a substitute for professional medical care. Always follow your healthcare professional's instructions. documented in this encounter Progress Notes Caity King MD - 06/28/2018 4:15 PM CDT June 28, 2018 Return visit Patient returns today for follow up. Retrained bladder. Night time issues have improved to the nocturia x1 which she reports as always. Overall 80% improved. She is most concerned about the continued blood on the urine tests She denies any changes in her health since last visit. BP 110/78 Ht 1.676 m (5' 6) Wt 54.4 kg (120 lb) BMI 19.37 kg/m2 She is comfortable, in no distress, non-labored breathing. Urine dip with blood PVR 31 mL by bladder scan A/P: 33 year old F with improved urgency frequency, pelvic floor dysfunction after PFPT, microscopichematuria s/p cystoscopy in February We discussed my low suspicion for anything concerning with her microscopic hematuria but given patient's concern would recommend repeat cystoscopy in August (6 months from prior) and if stable monitor. We discussed the AUA guidelines she can have yearly urinalyses. If she has two consecutive negative annual urinalyses no further urinalyses are indicated for this purpose. If she has persistent or recurrent asymptomatic microscopic hematuria then would consider nephrology evaluation in the short term and urologic evaluation in 3-5 years Continue pelvic floor therapy exercises 15 minutes were spent with the patient today, > 50% in counseling and coordination of care Caity King MD MPH Lawnmower Mechanic of Urology CC Patient Care Team: Maty Barrett MD as PCP - General (corn shredder) documented in this encounter Plan of Treatment Not on filedocumented as of this encounter Procedures Procedure Name Priority Date/Time Associated Diagnosis Comme nts URINE MICRO UROLOGIC Routine 06/28/2018 3:41 PM Microscopic R esults for this PHYS CDT hematuria procedure are i n the results section. URINE MACROSCOPIC Routine 06/28/2018 2:57 PM Urgency-frequency Results for this ONLY CDT syndrome procedure are i n the results section. HC MEASURE POST-VOID Routine 06/28/2018 Urgency-frequency Re sults for this RESIDUAL syndrome procedure are i n URINE/BLADDER the results CAPACITY, US section. NON-IMAGING documented in this encounter Results (ABNORMAL) Urine Micro Urologic Phys [[id number]] (06/28/2018 3:41 PM CDT) [facility] Method Time Signature WBC Urine 0 0 - 5 06/28/2018 [facility] /HPF 7:00 PM [facility] RBC Urine 14 (H) 0 - 2 06/28/2018 [facility] /HPF 7:00 PM [facility] Squamous <1 0 - 1 06/28/2018 [facility] /HPF /HPF 7:00 PM [facility] Mucous Urine Present (A) NEG^Negat 06/28/2018 [place] evan /LPF 7:00 PM [facility] Specimen Anatomical Collection Method Collection Time Receive d Time (Source) Location / / Volume Laterality Urine specimen 06/28/2018 3:41 PM 018 3:42 (specimen) CDT PM CDT Caity King MD LAB - URINE ORDERABLES Performing Organization Address City/State/ZIP Code Phon e Number M [facility] [address] [address] [phone] [facility] [address] [place] [address], [place] [phone] (ABNORMAL) UA without Microscopic [[id number]] (06/28/2018 2:57 PM CDT) [facility] Method Time Signature Color Urine Yellow 06/28/2018 [place] 3:01 PM CDT [facility] Appearance Urine Clear 06/28/2018 [facility] 3:01 PM CDT [facility] Glucose Urine Negative NEG^Negat 06/28/2018 [place]an mg/dL 3:01 PM CDT [facility] Bilirubin Urine Negative NEG^Negat 06/28/2018 [facility] evan 3:01 PM CDT [facility] Ketones Urine Negative NEG^Negat 06/28/2018 [facility] [place]an mg/dL 3:01 PM CDT [facility] Specific [place] <=1.005 1.003 - 06/28/2018 [facility] Urine 1.035 3:01 PM CDT [facility] Blood Urine Small (A) NEG^Negat 06/28/2018 [facility] evan 3:01 PM CDT [facility] pH Urine 6.0 5.0 - 7.0 06/28/2018 [facility] pH 3:01 PM CDT [facility] Protein Albumin Negative NEG^Negat 06/28/2018 [facility] Urine evan mg/dL 3:01 PM CDT [facility] Urobilinogen 0.2 0.2 - 1.0 06/28/2018 [facility] Urine EU/dL 3:01 PM CDT [facility] Nitrite Urine Negative NEG^Negat 06/28/2018 [facility] evan 3:01 PM CDT [facility] Leukocyte Negative NEG^Negat 06/28/2018 [facility] Esterase Urine evan 3:01 PM CDT [facility] Source Midstream 06/28/2018 [facility] Urine 3:00 PM CDT [facility] Specimen (Source) Anatomical Collection Method Collection Time Re ceived Time Location / / Volume Laterality Examination of 06/28/2018 2:57 06/28/2018 2:58 midstream urine PM CDT PM CDT specimen (procedure) Caity King MD LAB - URINE ORDERABLES Performing Organization Address City/State/ZIP Code Phon e Number [facility] [address] [place] [phone] [address] MEASURE POST-VOID RESIDUAL URINE/BLADDER CAPACITY, US NON-IMAGING ([id number]) (06/28/2018) P athologist Signature Residual Volume 31 mL (RV) (External) Caity Kei King MD PROCEDURES documented in this encounter Visit Diagnoses Diagnosis 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
--- OUTSIDE RECORDS SUMMARY | 2022-07-20 13:20 | XMS_ITS | Encounter Summary ---
:1985 Author Organization [facility] Address [address] [facility] [place] [address] Care Team Providers Name Role Phone Mayt Barrett MD Primary Care Provider [phone] Encounter Details Date Type Department Care Team Description 02/21/[address] [facility] Caity King See Urinar y incontinence, Urology Clinic Sarah Hernandez MD unspecified type [address] [facility] [address] [facility] (Primary Dx) [address] [facility] [address] [place] [address] [place], [place] [phone] (Wo rk) Social History Tobacco Use Types Packs/Day Years Used Date Smoking Tobacco: Never Smokeless Tobacco: Never Alcohol Use Standard Drinks/Week Comments No 0 (1 standard drink = 0.6 oz pure alcoho l) Sex Assigned at Date Recorded Not on file documented as of this encounter Plan of Treatment Not on filedocumented as of this encounter Visit Diagnoses Diagnosis Urinary incontinence, unspecified type - Primary documented in this encounter Care Teams Bottle House Cleaners Supervisor Relationship Specialty Start Date End Date Maty Barrett MD PCP - General heating technician 06/08/17 [facility] VIRTUAL OFFICE ASSISTANT CONSULT [address] [place] [address] documented as of this encounter
--- OUTSIDE RECORDS SUMMARY | 2022-07-20 13:20 | XMS_ITS | Encounter Summary ---
:1985 Author Organization [place] Address [address] [place] [address] Care Team Providers Name Role Phone Maty Barrett MD Primary Care Provider [phone] Encounter Details Date Type Department Care Team Description 08/17/[address] [facility] Caity King See Micros copic hematuria (Primary Dx); Urology Clinic MD David Urinary frequency [place] [address] [facility] [address] [facility] [address] [place], [place] [address] [address] [place], [place] [phone] (Wo rk) [address] [phone] Social History Tobacco Use Types Packs/Day Years Used Date Smoking Tobacco: Never Smokeless Tobacco: Never Alcohol Use Standard Drinks/Week Comments No 0 (1 standard drink = 0.6 oz pure alcoho l) Sex Assigned at Date Recorded Not on file documented as of this encounter Plan of Treatment Not on filedocumented as of this encounter Results Urine Culture Aerobic Bacterial [[id number]] (08/21/2018 8:31 AM ENGLISH TEACHER) Component Value Ref Test Analysis Performed At [facility] Range Method Time Signature Specimen Catheterized [facility] Urine [facility] Special Specimen 08/21/2018 [facility] Requests received in 6:57 PM ENGLISH TEACHER [facility] preservative [facility] Culture Micro No growth 08/22/2018 [facility] 10:04 PM [facility] Specimen (Source) Anatomical Collection Method Collection Time Re ceived Time Location / / Volume Laterality Urine specimen 08/21/2018 8:31 08/21/2018 8:32 collection, AM ENGLISH TEACHER AM ENGLISH TEACHER catheterized (procedure) Caity See David King MD LAB - MICRO GENERAL ORDERABL ES Performing Organization Address City/State/ZIP Code Phon e Number [facility] [address] [place] [address] [place] (ABNORMAL) UA without Microscopic [[id number]] (08/21/2018 8:30 AM ENGLISH TEACHER) Component Value Ref Test Analysis Performed At [facility] gist Range Method Time Signature Color Urine Yellow 08/21/2018 [place] 8:34 AM ENGLISH TEACHER [facility] Appearance Clear 08/21/2018 [place] Urine 8:34 AM ENGLISH TEACHER [facility] Glucose Urine Negative NEG^Nega 08/21/2018 [place] tive 8:34 AM ENGLISH TEACHER UROLOGIC mg/dL [facility] Bilirubin Urine Negative NEG^Nega 08/21/2018 [place] tive 8:34 AM ENGLISH TEACHER [facility] Ketones Urine Negative NEG^Nega 08/21/2018 [place] tive 8:34 AM ENGLISH TEACHER UROLOGIC mg/dL [facility] Specific 1.025 1.003 - 08/21/2018 [place] Urine 1.035 8:34 AM ENGLISH TEACHER [facility] Blood Urine Moderate (A) NEG^Nega 08/21/2018 [place] tive 8:34 AM ENGLISH TEACHER [facility] pH Urine 6.0 5.0 - 08/21/2018 [place] 7.0 pH 8:34 AM ENGLISH TEACHER [facility] Protein Albumin Negative NEG^Nega 08/21/2018 [place] Urine tive 8:34 AM ENGLISH TEACHER UROLOGIC mg/dL [facility] Urobilinogen 0.2 0.2 - 08/21/2018 [place] Urine 1.0 8:34 AM ENGLISH TEACHER UROLOGIC EU/dL [facility] Nitrite Urine Negative NEG^Nega 08/21/2018 [place] tive 8:34 AM ENGLISH TEACHER [facility] Leukocyte Negative NEG^Nega 08/21/2018 [place] Esterase Urine tive 8:34 AM ENGLISH TEACHER [facility] Source Catheterized 08/21/2018 [place] Urine 8:32 AM ENGLISH TEACHER [facility] Specimen (Source) Anatomical Collection Method Collection Time Re ceived Time Location / / Volume Laterality Urine specimen 08/21/2018 8:30 08/21/2018 8:31 collection, AM ENGLISH TEACHER AM ENGLISH TEACHER catheterized (procedure) Caity See David King MD LAB - URINE ORDERABLES Performing Organization Address City/State/ZIP Code Phon e Number [place] [facility] [address] [place] [address] [facility] [address] documented in this encounter Visit Diagnoses Diagnosis Microscopic hematuria - Primary Urinary frequency documented in this encounter Care Teams Sale Professional Digital Marketing Relationship Specialty Start Date End Date Maty Barrett MD PCP - General steam boiler fireman 06/08/17 [facility] JUDGE CLERK CONSULT [address] [facility] [address] [place] [phone] documented as of this encounter
--- OUTSIDE RECORDS SUMMARY | 2022-07-20 13:20 | XMS_ITS | Encounter Summary ---
:1985 Author Organization [facility] Address [address] [place] [address]. [place] [address] Care Team Providers Name Role Phone Maty Barrett MD Primary Care Provider Reason for Visit Reason Comments Other fu Encounter Details Date Type Department Care Team Description 01/04/2018 Office Visit [facility] Elsie Peters Urinar y frequency Urology Clinic [facility] (Primary Dx) [address] [place] [address] [place], [place] [phone] (Work) [phone] Social History Tobacco Use Types Packs/Day Years Used Date Smoking Tobacco: Never Smokeless Tobacco: Never Alcohol Use Standard Drinks/Week Comments No 0 (1 standard drink = 0.6 oz pure alcoho l) Sex Assigned at Date Recorded Not on file documented as of this encounter Last Filed Vital Signs Vital Sign Reading Time Taken Comments Blood Pressure - - Pulse 96 01/04/2018 1:25 PM CDT Temperature - - Respiratory Rate - - Oxygen Saturation 97% 01/04/2018 1:25 PM CDT Inhaled Oxygen Concentration - - Weight 52.2 kg (115 lb) 01/04/2018 1:25 PM CDT Height 167.6 cm (5' 6) 01/04/2018 1:25 PM CDT Body Mass Index 18.56 01/04/2018 1:25 PM CDT documented in this encounter Patient Instructions Patient InstructionsElsie Peters PA-C - 01/04/2018 1:30 PM CDT Below is a list of things that can irritate the bladder and should be avoided: ?? Caffeinated soft drinks. ?? Coffee. ?? Tea. ?? Chocolate. ?? Tomato-based foods. ?? Acidic juices and fruits. (includes cranberry juice) ?? Alcohol. ?? Carbonated drinks. ?? Aspartame/Nutrasweet. Can stop the oxybutynin Mycoplasma and Ureaplasma cultures Dr. King, for an opinion. Can consider CT scan. documented in this encounter Progress Notes Elsie Peters PA-C - 01/04/2018 1:30 PM CDT CC: Hematuria. HPI: It is a pleasure to see Ms. Brittany Bess, a pleasant 32 year old female, seen initially for+ Urine dip for blood (Micro showed 1RBC/HPF). She is here for f/u of OAB symptoms. Ms. Bess voids without difficulty, and reports nocturia of 0-1. She currently denies any dysuria, pyuria, hesitancy, intermittency, feelings of incomplete emptying, or any recent history of urinary tract infections or stones. Sometime experiences frequency (7-8x/hour), but not all the time. Was prescribed Detrol and this was expensive. Now on Oxybutynin, with no benefit. Past Medical History: Diagnosis Date ??? Spider veins ??? STD (sexually transmitted disease) Past Surgical History: Procedure Laterality Date ??? MANDIBLE SURGERY Bilateral Current Outpatient Prescriptions Medication Sig Dispense Refill ??? oxybutynin (DITROPAN) 5 MG tablet Take 1 tablet (5 mg) by mouth daily 30 tablet 11 ??? tolterodine (DETROL LA) 4 MG 24 hr capsule Take 1 capsule (4 mg) by mouth daily 90 capsule 3 ??? TRI-SPRINTEC 0.18/0.215/0.25 MG-35 MCG per tablet Take 0.25 mg by mouth daily 2 ??? Cranberry 1000 MG CAPS ??? ibuprofen (ADVIL,MOTRIN) 600 MG tablet Take 1 tablet (600 mg) by mouth every 6 hours as needed for other (cramping) ??? polyethylene glycol (MIRALAX) powder Take 17 g (1 capful) by mouth daily (Patient not taking: Reported on 06/08/2017) 510 g 1 ??? Vit-Fe Fumarate-FA ( MULTIVITAMIN PLUS IRON) 27-0.8 MG TABS Take 1 tablet by mouth daily No Known Allergies FAMILY HISTORY: There is no reported history of genitourinary carcinoma. There is no history of urolithiasis. SOCIAL HISTORY: The patient does not smoke cigarettes. Denies EtOH and illicit drug abuse. ROS: A comprehensive 14 point ROS was obtained and negative except for that outlined above in the HPI. PHYSICAL EXAM: Vitals: 01/04/18 1325 Pulse: 96 SpO2: 97% Weight: 52.2 kg (115 lb) Height: 1.676 m (5' 6) GENERAL: Well groomed, well developed, well nourished female in NAD. HEENT: AT, NC, EOMI bilaterally. SKIN: Warm to touch, dry. No visible rashes or lesions on examined areas. RESP: No increased respiratory effort. MS: Full ROM in extremities. PELVIC: Deferred for now. NEURO: Alert and oriented x 3. PSYCH: Normal mood and affect, pleasant and agreeable during interview and exam. Admission on 03/23/2016, Discharged on 03/26/2016 Component Date Value Ref Range Status ??? Treponema pallidum Antibody 03/23/2016 Negative NEG Final ??? WBC 03/23/2016 12.1* 4.0 - 11.0 10e9/L Final ??? RBC Count 03/23/2016 3.81 3.8 - 5.2 10e12/L Final ??? Hemoglobin 03/23/2016 12.0 11.7 - 15.7 g/dL Final ??? Hematocrit 03/23/2016 34.7* 35.0 - 47.0 % Final ??? MCV 03/23/2016 91 78 - 100 fl Final ??? MCH 03/23/2016 31.5 26.5 - 33.0 pg Final ??? MCHC 03/23/2016 34.6 31.5 - 36.5 g/dL Final ??? RDW 03/23/2016 13.7 10.0 - 15.0 % Final ??? Platelet Count 03/23/2016 213 150 - 450 10e9/L Final ??? Diff Method 03/23/2016 Automated Method Final ??? % Neutrophils 03/23/2016 75.6 % Final ??? % Lymphocytes 03/23/2016 12.9 % Final ??? % Monocytes 03/23/2016 7.5 % Final ??? % Eosinophils 03/23/2016 0.5 % Final ??? % Basophils 03/23/2016 0.2 % Final ??? % Immature Granulocytes 03/23/2016 3.3 % Final ??? Nucleated RBCs 03/23/2016 0 0 /100 Final ??? Absolute Neutrophil 03/23/2016 9.2* 1.6 - 8.3 10e9/L Final ??? Absolute Lymphocytes 03/23/2016 1.6 0.8 - 5.3 10e9/L Final ??? Absolute Monocytes 03/23/2016 0.9 0.0 - 1.3 10e9/L Final ??? Absolute Eosinophils 03/23/2016 0.1 0.0 - 0.7 10e9/L Final ??? Absolute Basophils 03/23/2016 0.0 0.0 - 0.2 10e9/L Final ??? Abs Immature Granulocytes 03/23/2016 0.4 0 - 0.4 10e9/L Final ??? Absolute Nucleated RBC 03/23/2016 0.0 Final ??? ABO 03/23/2016 A Final ??? RH(D) 03/23/2016 Pos Final ??? Antibody Screen 03/23/2016 Neg Final ??? Test Valid Only At 03/23/2016 [facility] Final ??? Specimen Expires 03/23/2016 03/26/2016 Final ??? Hematocrit 09/02/2015 38.7 % Final ??? Platelet Count 09/02/2015 314 10^9/L Final ??? ABO 09/02/2015 A Positive Final ??? Antibody Screen 09/02/2015 negative Final ??? Chlamydia Trachomatis PCR 09/02/2015 negative Final ??? Group B Strep PCR 03/12/2016 negative Final ??? Hep B Surface Agn 09/02/2015 negative Final ??? Hemoglobin 09/02/2015 12.5 11.7 - 15.7 gm/dL Final ??? Hemoglobin 01/13/2016 11.6* 11.7 - 15.7 gm/dL Final ??? HIV Antigen Antibody Combo 09/02/2015 negative Final ??? Rubella Antibody IgG Quantitative 09/02/2015 immune IU/mL Final ??? Hemoglobin 03/25/2016 10.6* 11.7 - 15.7 g/dL Final IMAGING: None ASSESSMENT and PLAN: Ms. Brittany Bess is a pleasant 32 year old female with hematuria on dipstick u/as. The differential diagnosis at this point includes stone disease, infection, vaginal contaminant, urothelial malignancy, renal disorder versus another yet unknown diagnosis. -U/A, micro -Mycoplasma and Ureaplasma -Can stop oxybutynin -Could consider imaging and opinion from Dr. King. Elsie Peters PA-C [facility] 20 minutes were spent with the patient today, > 50% in counseling and coordination of care. documented in this encounter Nursing Notes Shahnaz Gaming CMA - 01/04/2018 1:30 PM CDT Pt states somedays she has freq. Pt sometimes feels like she has abd pressure that comes and goes. Sometimes she has inflammation feeling after voiding. When pt drinks wine she feels the pressure. Pt thinks the oxybutynin helps a little. Pt has dry mouth from oxybutynin. Pt thinks about bladder all the time. Pt has cut back on coffee. Belinda Gaming CMA Shahnaz Gaming CMA - 01/04/2018 1:30 PM CDT PVR=52 D. JOSE MARTIN Gaming documented in this encounter Plan of Treatment Not on filedocumented as of this encounter Procedures Procedure Name Priority Date/Time Associated Comments Diagnosis URINE MICRO UROLOGIC Routine 01/04/2018 2:02 PM Urinary freque ncy Results for this PHYS CDT procedure are i n the results section. UREAPLASMA CULTURE Routine 01/04/2018 1:36 PM Urinary frequenc y Results for this CDT procedure are i n the results section. MYCOPLASM LARGE Routine 01/04/2018 1:36 PM Urinary frequency R esults for this COLONY CULTURE CDT procedure are in the results section. URINE MACROSCOPIC Routine 01/04/2018 1:18 PM Urinary frequency Results for this ONLY CDT procedure are i n the results section. BLADDER SCAN Routine 01/04/2018 Urinary frequency Results fo r this procedure are i n the results section. documented in this encounter Results (ABNORMAL) Urine Micro Urologic Phys (01/04/2018 2:02 PM CDT) [facility] Method Time Signature WBC Urine 3 0 - 5 01/04/2018 [facility] /[facility]PF 5:06 PM [facility] RBC Urine 4 (H) 0 - 2 01/04/2018 [facility] 5:06 PM [facility] Bacteria Urine Few (A) NEG^Negat 01/04/2018 [facility]an /HPF 5:06 PM [facility] Mucous Urine Present (A) NEG^Negat 01/04/2018 [facility]an /LPF 5:06 PM [facility] Specimen Anatomical Collection Method Collection Time Receive d Time (Source) Location / / Volume Laterality Urine specimen 01/04/2018 2:02 PM 018 2:03 (specimen) CDT PM CDT Elsie Peters PA-C LAB - URINE ORDERABLES Performing Organization Address City/State/ZIP Code Phon e Number [facility] [address] [address] [facility] [address] [phone] Mycoplasma large colony culture (01/04/2018 1:36 PM CDT) [facility] Method Time Signature Specimen Midstream INFECTIOUS Description Urine DISEASE DIAGNOSTIC LABORATORY Special Specimen 01/04/2018 [facility] received in 7:34 PM CDT [facility] Media Culture Micro No large 01/11/2018 INFECTIOUS colony 2:24 PM CDT DISEASE Mycoplasma DIAGNOSTIC species LABORATORY isolated Specimen (Source) Anatomical Collection Method Collection Time Re ceived Time Location / / Volume Laterality Examination of 01/04/2018 1:36 01/04/2018 1:37 midstream urine PM CDT PM CDT specimen (procedure) Elsie Peters PA-C LAB - MICRO GENERAL ORDERABL ES Performing Organization Address [facility] Phon e Number INFECTIOUS DISEASES [address] [place] [address] DIAGNOSTIC LABORATORY, [facility] INFECTIOUS DISEASE [address] [place] [address], [facility] DIAGNOSTIC LABORATORY [address] [facility] Ureaplasma culture (01/04/2018 1:36 PM CDT) [facility] Method Time Signature Specimen Midstream INFECTIOUS Description Urine DISEASE DIAGNOSTIC LABORATORY Special Specimen 01/04/2018 [facility] received in 7:34 PM CDT [facility] Media Culture Micro No Ureaplasma 01/11/2018 INFECTIOUS species 2:24 PM CDT DISEASE isolated DIAGNOSTIC LABORATORY Specimen (Source) Anatomical Collection Method Collection Time Re ceived Time Location / / Volume Laterality Examination of 01/04/2018 1:36 01/04/2018 1:37 midstream urine PM CDT PM CDT specimen (procedure) Elsie Peters PA-C LAB - MICRO GENERAL ORDERABL ES Performing Organization Address [facility] Phon e Number INFECTIOUS DISEASES [address] [place] [address] DIAGNOSTIC LABORATORY, [facility] INFECTIOUS DISEASE [address] [place] [address], [facility] DIAGNOSTIC LABORATORY [address] [facility] (ABNORMAL) UA without Microscopic (01/04/2018 1:18 PM CDT) [facility] gist Method Time Signature Color Urine Yellow 01/04/2018 [place] 1:33 PM CDT [facility] Appearance Urine Clear 01/04/2018 [place] 1:33 PM CDT [facility] Glucose Urine Negative NEG^Negat 01/04/2018 [place] evan mg/dL 1:33 PM CDT [facility] Bilirubin Urine Negative NEG^Negat 01/04/2018 [place] evan 1:33 PM CDT [facility] Ketones Urine Negative NEG^Negat 01/04/2018 [place] evan mg/dL 1:33 PM CDT [facility] Specific [place] 1.020 1.003 - 01/04/2018 [place] Urine 1.035 1:33 PM CDT [facility] Blood Urine Trace (A) NEG^Negat 01/04/2018 [place] evan 1:33 PM CDT [facility] pH Urine 8.5 (H) 5.0 - 7.0 01/04/2018 [place] pH 1:33 PM CDT [facility] Protein Albumin Trace (A) NEG^Negat 01/04/2018 [place] Urine evan mg/dL 1:33 PM CDT [facility] Urobilinogen 0.2 0.2 - 1.0 01/04/2018 [place] Urine EU/dL 1:33 PM CDT [facility] Nitrite Urine Negative NEG^Negat 01/04/2018 [place] evan 1:33 PM CDT [facility] Leukocyte Negative NEG^Negat 01/04/2018 [place] Esterase Urine evan 1:33 PM CDT [facility] Source Midstream 01/04/2018 [place] Urine 1:33 PM CDT [facility] Specimen (Source) Anatomical Collection Method Collection Time Re ceived Time Location / / Volume Laterality Examination of 01/04/2018 1:18 01/04/2018 1:19 midstream urine PM CDT PM CDT specimen (procedure) Elsie Peters PA-C LAB - URINE ORDERABLES Performing Organization Address City/State/ZIP Code Phon e Number [facility] [address] [place] [address] [facility] [address] Bladder scan (01/04/2018) P athologist Signature Residual Volume 52 (RV) (External) Elsie Peters PA-C IP NURSING GI/ documented in this encounter Visit Diagnoses Diagnosis Urinary frequency - Primary documented in this encounter Care Teams Calibrator Barometers Relationship Specialty Start Date End Date Maty Barrett MD PCP - General bucket operator 06/08/17 [facility] FILTER TANK TENDER HELPER HEAD CONSULT [address] [place] [phone] documented as of this encounter
--- OUTSIDE RECORDS SUMMARY | 2022-07-20 13:20 | XMS_ITS | Encounter Summary ---
:1985 Author Organization [place] Address [address] [facility] [place] [address] Care Team Providers Name Role Phone Therese Barrett MD Primary Care Provider Reason for Referral Diagnostic Imaging CT Scan - Closed Specialty Diagnoses / Procedures Referred By Contact Refer red To Contact Diagnoses Microscopic hematuria Urinary frequency Caity King MD Procedures CT Abdomen Pelvis w/o & w Contrast [[id number]] [address] [facility] [address] [place], [place] [address] Referral ID Status Reason Start Date Expiration Date Visits Requ ested Visits Authorized [id number] Closed 02/01/2018 02/01/2019 1 1 Reason for Visit Reason Comments Urinary Frequency Encounter Details Date Type Department Care Team Description 02/01/2018 Office Visit [facility] Caity King Urinar y frequency (Primary Dx); Urology Clinic Janine Hernandez MD Microscopic hematuria [address] [facility] [address] [facility] [address] [place] [address] [place], [place] [phone] (Wo rk) Social History Tobacco Use Types Packs/Day Years Used Date Smoking Tobacco: Never Smokeless Tobacco: Never Alcohol Use Standard Drinks/Week Comments No 0 (1 standard drink = 0.6 oz pure alcoho l) Sex Assigned at Date Recorded Not on file documented as of this encounter Last Filed Vital Signs Vital Sign Reading Time Taken Comments Blood Pressure 106/62 02/01/2018 3:25 PM CDT Pulse 80 02/01/2018 3:25 PM CDT Temperature - - Respiratory Rate - - Oxygen Saturation - - Inhaled Oxygen Concentration - - Weight 54.4 kg (120 lb) 02/01/2018 3:25 PM CDT Height 167.6 cm (5' 6) 02/01/2018 3:25 PM CDT Body Mass Index 19.37 02/01/2018 3:25 PM CDT documented in this encounter Patient Instructions Patient InstructionsFokCaity MD - 02/01/2018 3:30 PM CDT Images from the original note were not included. Please do the CT scan and blood work Please return for a cystoscopy (procedure to [...] taking any medicines before the procedure. ?? Ask whether you should avoid eating or drinking anything after midnight before the procedure. ?? Follow any other [...] may be applied to numb the urethra. Other pain medicine is usually not needed. In some cases, you may be offered a mild sedative to help you relax. If a more extensive procedure is to be done, such as a biopsy or kidney stone removal,general anesthesia may be needed. ?? The cystoscope is inserted. A sterile fluid is put into the bladder to expand it. You may feel pressure from this fluid. ?? When the procedure is done, the cystoscope is removed. After the procedure If you had a sedative, general anesthesia, or spinal anesthesia, you must have someone drive you home. Once you???re home: ?? Drink plenty of [...] trouble urinating. Date Last Reviewed: 10/10/2016 ?? [id number] [employer]. [address] [place] [address], [place] [address]. All rights reserved. This information is not intended as a substitute for professional medical care. Always follow your healthcare professional's instructions. documented in this encounter Progress Notes Caity King MD - 02/01/2018 3:30 PM CDT February 01, 2018 Return visit Patient returns today for follow up of her urinary frequency and microscopic hematuria. She denies any changes in her health since last visit. BP 106/62 Pulse 80 Ht 1.676 m (5' 6) Wt 54.4 kg (120 lb) LMP 01/18/2018 (Approximate) BMI19.37 kg/m2 She is comfortable, in no distress, non-labored breathing. Urine dip moderate blood A/P: 32 year old F with microscopic hematuria, urinary frequency We discussed the etiologies of microscopic hematuria to include but not limited to infection, nephrolithiasis, urologic malignancy, renal disease and idiopathic. We further discussed that the evaluation includes BMP, imaging with a CT urogram and office cystoscopy. Patient is agreeable and the will return to cystoscopy after imaging complete. 15 minutes were spent with the patient today, > 50% in counseling and coordination of care Caity King MD MPH Non Licensed Operator of Urology CC Patient Care Team: Therese Barrett MD as PCP - General (occupancy specialist) THERESE BARRETT documented in this encounter Nursing Notes Zamzam Salgado LPN - 02/01/2018 3:30 PM CDT Has urinary frequency and sp pressure. Has nocturia x 2 . Post void by scan was 65 cc.Zamzam Deleon documented in this encounter Plan of Treatment Not on filedocumented as of this encounter Procedures Procedure Name Priority Date/Time Associated Diagnosis Comme nts BASIC METABOLIC Routine 02/01/2018 3:59 PM Microscopic Result s for this PANEL CDT hematuria procedure are in Urinary frequency the result s section. URINE MACROSCOPIC Routine 02/01/2018 3:17 PM Urinary lambert quency Results for this ONLY CDT Microscopic procedure are i n hematuria the results section. HC MEASURE POST-VOID Routine 02/01/2018 Urinary lambert quency Results for this RESIDUAL Microscopic procedure are i n URINE/BLADDER hematuria the results CAPACITY, US section. NON-IMAGING documented in this encounter Results CT Abdomen Pelvis w/o & w Contrast [[id number]] (02/21/2018 8:13 AM CDT) Anatomical Region Laterality [...] a nd pelvis is within normal limits. ALIN HAIDER MD Narrative 02/21/2018 10:40 AM CDT [...] Bone window examination is unremarkable. Procedure Note Alin Haider MD - 02/21/2018Form atting of this [...] a nd pelvis is within normal limits. ALIN HAIDER MD Caity King MD IMG CT ORDERABLES Basic metabolic panel [LAB15] (02/01/2018 3:59 PM CDT) athologist Signature Sodium 138 133 - 144 02/02/2018 [place] mmol/L 10:13 AM CDT [facility] Potassium 4.3 3.4 - 5.3 02/02/2018 [facility] mmol/L 10:13 AM CDT [facility] Chloride 107 94 - 109 02/02/2018 [place] mmol/L 10:13 AM CDT [facility] Carbon Dioxide 22 20 - 32 02/02/2018 [place] mmol/L 10:13 AM CDT [facility] Anion Gap 9 3 - 14 02/02/2018 [place] mmol/L 10:13 AM CDT [facility] Glucose 82 70 - 99 02/02/2018 [place] mg/dL 10:13 AM CDT [facility] Urea Nitrogen 10 7 - 30 02/02/2018 [place] mg/dL 10:13 AM CDT [facility] Creatinine 0.71 0.52 - 02/02/2018 [place] 1.04 mg/dL 10:13 AM CDT [facility] GFR Estimate >90 >60 02/02/2018 [place] mL/min/1.7 10:13 AM CDT [facility] m2 [facility] Comment: Non GFR Calc GFR Estimate If >90 >60 mL/min/1.7m2 02/02/2018 10:13 AM [facility] [place] [facility] Comment: GFR Calc Calcium 8.8 8.5 - 10.1 mg/dL 02/02/2018 10:13 AM [facility] Specimen Anatomical Collection Method Collection Time Receive d Time (Source) Location / / Volume Laterality Blood specimen 02/01/2018 3:59 PM 018 4:00 (specimen) CDT PM CDT Caity Kei King MD LAB - BLOOD ORDERABLES Performing Organization Address City/State/ZIP Code Phon e Number [facility] [address] [place] [address] (ABNORMAL) UA without Microscopic (02/01/2018 3:17 PM CDT) [facility] Method Time Signature Color Urine Yellow 02/01/2018 [place] 3:22 PM CDT [facility] Appearance Urine Clear 02/01/2018 [place] 3:22 PM CDT [facility] Glucose Urine Negative NEG^Negat 02/01/2018 [place] mg/dL 3:22 PM CDT [facility] Bilirubin Urine Negative NEG^Negat 02/01/2018 [place] 3:22 PM CDT [facility] Ketones Urine Negative NEG^Negat 02/01/2018 [place] mg/dL 3:22 PM CDT [facility] Specific [place] >1.030 1.003 - 02/01/2018 [place] Urine 1.035 3:22 PM CDT [facility] Blood Urine Moderate (A) NEG^Negat 02/01/2018 [place] 3:22 PM CDT [facility] pH Urine 5.5 5.0 - 7.0 02/01/2018 [place] pH 3:22 PM CDT [facility] Protein Albumin Negative NEG^Negat 02/01/2018 [place] Urine evan mg/dL 3:22 PM CDT [facility] Urobilinogen 0.2 0.2 - 1.0 02/01/2018 [place] Urine EU/dL 3:22 PM CDT [facility] Nitrite Urine Negative NEG^Negat 02/01/2018 [place] 3:22 PM CDT [facility] Leukocyte Negative NEG^Negat 02/01/2018 [place] Esterase Urine evan 3:22 PM CDT [facility] Source Midstream 02/01/2018 [place] Urine 3:22 PM CDT [facility] Specimen (Source) Anatomical Collection Method Collection Time Re ceived Time Location / / Volume Laterality Examination of 02/01/2018 3:17 02/01/2018 3:19 midstream urine PM CDT PM CDT specimen (procedure) Caity King MD LAB - URINE ORDERABLES Performing Organization Address City/State/ZIP Code Phon e Number [facility] [address] [phone] [address] MEASURE POST-VOID RESIDUAL URINE/BLADDER CAPACITY, US NON-IMAGING ([id number]) (02/01/2018) P athologist Signature Residual Volume 65 (RV) (External) Caity King MD PROCEDURES documented in this encounter Visit Diagnoses Diagnosis Urinary frequency - Primary Microscopic hematuria Microscopic hematuria Urinary frequency documented in this encounter Care Teams Offbearer Relationship Specialty Start Date End Date Therese Barrett MD PCP - General occupancy specialist 06/08/17 [facility] ADOPTION SOCIAL WORKER CONSULT [address] [facility] [address] [place] [address] documented as of this encounter
--- OUTSIDE RECORDS SUMMARY | 2022-07-20 13:20 | XMS_ITS | Encounter Summary ---
:1985 Author Organization [place] Address [facility] [place] [address] Care Team Providers Name Role Phone Maty Barrett MD Primary Care Provider [phone] Reason for Visit Auth/Cert Specialty Diagnoses / Procedures Referred By Contact Refer red To Contact continuous dryout operator helper Diagnoses Uterine contractions during Vaginal delivery Rh Procedures LABOR AND DELIVERY [address] [place], [place] [address] Phone: Fax: Referral ID Status Reason Start Date Expiration Date Visits Requ ested Visits Authorized [id number] 1 1 Encounter Details Date Type Department Care Team Description 07/18/2020 Anesthesia Event [facility] Nick Navarrete MD [facility] [address] [facility] [place] [address] [facility] [id number] [address] [place], [place] [address] [address] ([facility]) Anesthesia Record Procedure Summary Procedure Name Responsible Anesthesia Start Time Anesthesia Stop Time Anesthesiologist LABOR ANALGESIA Nick Navarrete MD 07/18/20 1703 07/18/20 1731 Events Date Time Event Comment 07/18/2020 1703 An Start 1731 An Stop Electronically s igned by Nick Navarrete MD on July 18, 2020 5:33 PM No medications on file. Agents No agents on file. Blood No blood administrations on file. Lines, Drains, and Airways Type Details Placement Removal Mechanical Ripening 07/20/20; 1235 03/23/16 2249 by 07/20/20 12 35 by Device Rachel Luther RN Lazo, Anna, RN Peripheral IV 02/21/18; 0801; 22 G; 02/21/18 0801 by 07/20/20 1235 by Right Victoriano Walsh Anna, RN Peripheral IV 07/18/20; 1631; 18 G; 07/18/20 1631 by 07/19/20 1000 by [facility]; Distal, Zoie Escalona RN Laz o, Anna, RN Left; Lower forearm; Chlorhexidine; None; Tolerated well Intrathecal/Epidural 07/18/20; 1731; 07/18/20 1731 by 07/20/20 1 235 by Catheter Epidural; hk rn; Tip Nick Navarrete MD Lazo, Ernestina balderas RN intact Intrathecal/Epidural 07/18/20; 1732; 07/18/20 1732 by 07/20/20 1 235 by Catheter Epidural Nick Navarrete MD Lazo, Anna, R N documented in this encounter Social History Tobacco Use Types Packs/Day Years Used Date Smoking Tobacco: Never Smokeless Tobacco: Never Alcohol Use Standard Drinks/Week Comments No 0 (1 standard drink = 0.6 oz pure alcoho l) Sex Assigned at Date Recorded Not on file documented as of this encounter OR Notes Anesthesia Postprocedure Evaluation - Ariel Masterson MD - 07/19/2020 2:09 PM CDT Patient: Brittany Bess * No procedures listed * Diagnosis:* No pre-op diagnosis entered * Diagnosis Additional Information: No value filed. Anesthesia Type: No value filed. Note: Anesthesia Post Evaluation Comments: S/P epidural for labor. I or my partner was immediately available for management of this patient during epidural analgesia infusion. VSS. Doing well. Block resolved. Neuro at baseline. Denies positional headache. Minimal side effectseasily managed w/ PRN meds. No apparent anesthetic complications. No follow-up required. Gal Masterson MD Last vitals: Vitals: 07/19/20 0300 07/19/20 0337 07/19/20 0952 BP: 119/70 111/65 Pulse: 70 70 Resp: 16 16 16 Temp: 97.9 ??F (36.6 ??C) 97.9 ??F (36.6 ??C) SpO2: Electronically Signed By: Ariel Masterson MD July 19, 2020 2:09 PM Anesthesia Preprocedure Evaluation - Nick Navarrete MD - 07/18/2020 5:34 PM CDT Anesthesia Pre-Procedure Evaluation Patient: Brittany Bess : 1985 Preoperative Diagnosis: * No pre-op diagnosis entered * * No procedures listed * Past Medical History: Diagnosis Date ??? Spider veins ??? STD (sexually transmitted disease) Past Surgical History: Procedure Laterality Date ??? MANDIBLE SURGERY Bilateral Anesthesia Evaluation history and physical reviewed . ROS/MED HX ENT/Pulmonary: - neg pulmonary ROS Neurologic: - neg neurologic ROS Cardiovascular: - neg cardiovascular ROS METS/Exercise Tolerance: Hematologic: Musculoskeletal: GI/Hepatic: - neg GI/hepatic ROS Renal/Genitourinary: Endo: Psychiatric: Infectious Disease: Malignancy: Other: neg OB ROS Physical Exam Normal systems: cardiovascular, pulmonary and dental Airway Mallampati: II TM distance: > 3 FB Neck ROM: full Mouth opening: > 3 cm Dental Cardiovascular Pulmonary Lab Results Component Value Date WBC 12.1 (H) 03/23/2016 HGB 10.6 (L) 03/25/2016 HCT 34.7 (L) 03/23/2016 PLT 213 03/23/2016 NA 138 02/01/2018 POTASSIUM 4.3 02/01/2018 CHLORIDE 107 02/01/2018 CO2 22 02/01/2018 BUN 10 02/01/2018 CR 0.71 02/01/2018 GLC 82 02/01/2018 SHEILA 8.8 02/01/2018 HCGS Negative 02/01/2018 Preop Vitals BP Readings from Last 3 Encounters: 07/18/20 124/75 08/30/18 128/70 06/28/18 110/78 Pulse Readings from Last 3 Encounters: 02/01/18 80 01/04/18 96 06/08/17 56 Resp Readings from Last 3 Encounters: 07/18/20 20 03/26/16 16 SpO2 Readings from Last 3 Encounters: 01/04/18 97% 06/08/17 97% 03/24/16 99% Temp Readings from Last 1 Encounters: 07/18/20 98.1 ??F (36.7 ??C) (Oral) Ht Readings from Last 1 Encounters: 07/18/20 1.702 m (5' 7) Wt Readings from Last 1 Encounters: 07/18/20 70.8 kg (156 lb) Estimated body mass index is 24.43 kg/m?? as calculated from the following: Height as of this encounter: 1.702 m (5' 7). Weight as of this encounter: 70.8 kg (156 lb). Anesthesia Plan History & Physical Review History and physical reviewed and following examination; no interval change. ASA Status: 2 . OB Epidural Asa: 2 Plan for Epidural Postoperative Care Consents Anesthetic plan, risks, benefits and alternatives discussed with: Patient and Patient.. Nick Navarrete MD . Anesthesia Procedure Notes - Nick Navarrete MD - 07/18/2020 5:33 PM CDT Associated Order(s): Epidural Block Procedure note : Staff - Anesthesiologist: Nick Navarrete MD Performed By: anesthesiologist Pre-Procedure Performed by Nick Navarrete MD Location: . Assessment/Narrative . . . Comments: Pre-Procedure Performed by Nick Navarrete MD Location: OB. PreAnesthestic Checklist: patient identified, IV checked, risks and benefits discussed, informed consent obtained, monitors and equipment checked, pre-op evaluation and at physician/surgeon's request. Timeout Correct Patient: Yes Correct Procedure: Epidural catheter placement Correct Site: Yes Correct Position: Yes Procedure Documentation Procedure: Epidural catheter block for Labor Patient currently in labor and she and OBMD request a labor epidural to control her labor pains. Patient was interviewed and examined. Procedure and risks including but not limited to bleeding, infection, nerve injury, paralysis, PDPH, and inadequate block requiring intervention discussed with patient. Questions answered. This epidural is to be placed in anticipation of vaginal delivery. She consentsto the epidural procedure. Time-out was performed. I or my partners remain immediately available formanagement of any issues or complications and will monitor at appropriate intervals. Procedure: Patient sitting. Betadine prep x 3. Sterile drape applied. Lidocaine 1% local infiltration at L 3-4. 17 G. Tuohy needle at L3-4 by loss of resistance into epidural space. No CSF, paresthesia or blood. 1.5 % Lidocaine with 1:200,000 Epinephrine 5cc test dose. Then 0.25% bupivicaine 10 cc with NS 5 cc. Epidural catheter inserted w/o resistance to 5 cm in epidural space. Aspiration negative for blood and CSF. Negative for neuro change, paresthesia or symptoms of intravascular injection or intrathecal injection. Infusion orders written and infusion of 0.125% bupivicaine 15cc per hour started. Nick Navarrete MD documented in this encounter Miscellaneous Notes Addendum Note - Sosa Ramon - 07/21/2020 8:27 AM CDT Addendum created 07/21/20 08 by Sosa Ramon Charge Capture section accepted Addendum Note - Ariel Masterson MD - 07/19/2020 2:09 PM CDT Addendum created 07/19/20 1409 by Ariel Masterson MD Clinical Note Signed documented in this encounter Plan of Treatment Not on filedocumented as of this encounter Procedures Procedure Name Priority Date/Time Associated Diagnosis Comme nts ANE EPIDURAL BLOCK Routine 07/18/2020 5:33 PM Res ults for this CDT procedure are i n the results section. documented in this encounter Results Epidural Block (07/18/2020 5:33 PM CDT) Narrative Nick Navarrete MD - 07/18/2020 5:33 PM CDT Ncik Navarrete MD ? 07/18/2020 ??5:33 PM Procedure note : Staff - Anesthesiologist: ??Nick Navarrete MD Performed By: anesthesiologist Pre-Procedure Performed by Nick Navarrete MD Location: . ?? Assessment/Narrative . ??. ??. Comments: ??Pre-Procedure Performed by Nick Navarrete MD Location: OB. ?? PreAnesthestic Checklist: patient identi fied, IV checked, risks and benefits discussed, informed consent obt ained, monitors and equipment checked, pre-op evaluation and at physic wil/surgeon's request. Timeout Correct Patient: Yes Correct Procedure: Epidural catheter kwaku cement Correct Site: Yes Correct Position: Yes Procedure Documentation Procedure: ?? Epidural catheter block fo r Labor Patient currently in labor and she and O BMD request a labor epidural to control her labor pains. Patient was int erviewed and examined. Procedure and risks including but not limited to b leeding, infection, nerve injury, paralysis, PDPH, and inadequate block re quiring intervention discussed with patient. Questions answered. This e pidural is to be placed in anticipation of vaginal delivery. ??She consents to the epidural procedure. Time-out was performed. ??I or my partn ers remain immediately available for management of any issues or complica tions and will monitor at appropriate intervals. Procedure: Patient sitting. Betadine pre p x 3. Sterile drape applied. Lidocaine 1% ??local infiltration at L 3 -4. ??17 G. Tuohy needle at L3-4 by loss of resistance into epidural space. ??No CSF, paresthesia or blood. 1.5 % Lidocaine with 1:200,000 Epinephrine 5 cc test dose. Then 0.25% bupivicaine 10 cc with NS 5 cc. ??Epidur al catheter inserted w/o resistance to 5 cm in epidural space. ??Aspiration negative for blood and CSF. ?? Negative for neuro change, paresthesia o r symptoms of intravascular injection or intrathecal injection. Infusion orders written and infusion of 0.125% bupivicaine 15cc per hour started. Nick Navarrete MD Nick Navarrete MD [place] [facility] documented in this encounter Visit Diagnoses Not on filedocumented in this encounter Care Teams Salesperson Household Appliances Relationship Specialty Start Date End Date Maty Barrett MD PCP - General continuous dryout operator helper 06/08/17 [facility] MARKETING SENIOR RECRUITER CONSULT [address] [place] [phone] documented as of this encounter
--- OUTSIDE RECORDS SUMMARY | 2022-07-20 13:20 | XMS_ITS | Encounter Summary ---
:1985 Author Organization [place] Address [address] [place] [address] Care Team Providers Name Role Phone Maty Barrett MD Primary Care Provider [phone] Reason for Visit Reason Comments Hematuria Microhematuria; here for cat hed UA/UC prior to cysto 08/30/[address] King. Urinary Frequency Encounter Details Date Type Department Care Team Description 08/21/2018 Allied Health/Nurse [facility] Hem aturia Visit Urology Clinic (Microhematur ia; here [place] for cathed... [address] [place] [address] [address] [place] [address] Social History Tobacco Use Types Packs/Day Years Used Date Smoking Tobacco: Never Smokeless Tobacco: Never Alcohol Use Standard Drinks/Week Comments No 0 (1 standard drink = 0.6 oz pure alcoho l) Sex Assigned at Date Recorded Not on file documented as of this encounter Progress Notes Lyudmila Rob LPN - 08/21/2018 8:00 AM CST Brittany Bess comes into clinic today at the request of Dr. King for UA/UC prior to cysto on 08/30/18. This service provided today was under the supervising provider of the day, Dr. Stephenson, who was available if needed. Patient is going to be having a cystoscopy with Dr. King for micro hemauria and urinary frequency. Cathed urine collected. UA RESULTS: Recent Labs Lab Test 08/21/18 0830 06/28/18 1541 COLOR Yellow -- APPEARANCE Clear -- URINEGLC Negative -- URINEBILI Negative -- URINEKETONE Negative -- SG 1.025 -- UBLD Moderate* -- URINEPH 6.0 -- PROTEIN Negative -- UROBILINOGEN 0.2 -- NITRITE Negative -- LEUKEST Negative -- RBCU -- 14* WBCU -- 0 Urine will be sent for culture. Treatment pending culture results. Lyudmila Rob LPN L INSERTING MACHINE OPERATOR documented in this encounter Plan of Treatment Not on filedocumented as of this encounter Procedures Procedure Name Priority Date/Time Associated Diagnosis Comme nts URINE CULTURE Routine 08/21/2018 8:31 AM Microscopic Results for this DOWEL INSERTING MACHINE OPERATOR hematuria procedure are in Urinary frequency the result s section. URINE MACROSCOPIC Routine 08/21/2018 8:30 AM Microscopic Resu lts for this ONLY [facility] procedure are in Urinary frequency the result s section. documented in this encounter Results Urine Culture Aerobic Bacterial [[id number]] (08/21/2018 8:31 AM DOWEL INSERTING MACHINE OPERATOR) Component Value Ref Test [facility] Method Time Signature Specimen Catheterized [facility] Urine [facility] Special Specimen 08/21/2018 [facility] received in 6:57 PM DOWEL INSERTING MACHINE OPERATOR [facility] preservative [facility] Culture Micro No growth 08/22/2018 [facility] 10:04 PM [facility] Specimen (Source) Anatomical Collection Method Collection Time Re ceived Time Location / / Volume Laterality Urine specimen 08/21/2018 8:31 08/21/2018 8:32 collection, AM DOWEL INSERTING MACHINE OPERATOR AM DOWEL INSERTING MACHINE OPERATOR catheterized (procedure) Caitypaco King MD LAB - MICRO GENERAL ORDERABL ES Performing Organization Address City/State/ZIP Code Phon e Number [facility] [address] [place] [address] [place] (ABNORMAL) UA without Microscopic [[id number]] (08/21/2018 8:30 AM DOWEL INSERTING MACHINE OPERATOR) Component Value Ref Test Analysis Performed At [employer] Range Method Time Signature Color Urine Yellow 08/21/2018 [place] 8:34 AM DOWEL INSERTING MACHINE OPERATOR [facility] Appearance Clear 08/21/2018 [place] Urine 8:34 AM DOWEL INSERTING MACHINE OPERATOR [facility] Glucose Urine Negative NEG^Nega 08/21/2018 [place] tive 8:34 AM DOWEL INSERTING MACHINE OPERATOR [facility] mg/dL [facility] Bilirubin Urine Negative NEG^Nega 08/21/2018 [place] tive 8:34 AM DOWEL INSERTING MACHINE OPERATOR [facility] Ketones Urine Negative NEG^Nega 08/21/2018 [place] tive 8:34 AM DOWEL INSERTING MACHINE OPERATOR [facility] mg/dL [facility] Specific 1.025 1.003 - 08/21/2018 [place] Urine 1.035 8:34 AM DOWEL INSERTING MACHINE OPERATOR [facility] Blood Urine Moderate (A) NEG^Nega 08/21/2018 [place] tive 8:34 AM DOWEL INSERTING MACHINE OPERATOR [facility] pH Urine 6.0 5.0 - 08/21/2018 [place] 7.0 pH 8:34 AM DOWEL INSERTING MACHINE OPERATOR [facility] Protein Albumin Negative NEG^Nega 08/21/2018 [place] Urine tive 8:34 AM DOWEL INSERTING MACHINE OPERATOR [facility] mg/dL [facility] Urobilinogen 0.2 0.2 - 08/21/2018 [place] Urine 1.0 8:34 AM DOWEL INSERTING MACHINE OPERATOR [facility] EU/dL [facility] Nitrite Urine Negative NEG^Nega 08/21/2018 [place] tive 8:34 AM DOWEL INSERTING MACHINE OPERATOR [facility] Leukocyte Negative NEG^Nega 08/21/2018 [place] Esterase Urine tive 8:34 AM DOWEL INSERTING MACHINE OPERATOR [facility] Source Catheterized 08/21/2018 [place] Urine 8:32 AM DOWEL INSERTING MACHINE OPERATOR [facility] Specimen (Source) Anatomical Collection Method Collection Time Re ceived Time Location / / Volume Laterality Urine specimen 08/21/2018 8:30 08/21/2018 8:31 collection, AM DOWEL INSERTING MACHINE OPERATOR AM DOWEL INSERTING MACHINE OPERATOR catheterized (procedure) Caity Kei King MD LAB - URINE ORDERABLES Performing Organization Address City/State/ZIP Code Phon e Number [place] [facility] [address] [place] [phone] [facility] [address] documented in this encounter Visit Diagnoses Diagnosis Microscopic hematuria Urinary frequency documented in this encounter Care Teams Investigator Welfare Relationship Specialty Start Date End Date Maty Barrett MD PCP - General creative guru 06/08/17 [facility] SLUG PRESS OPERATOR CONSULT [address] [place] [phone] documented as of this encounter
--- OUTSIDE RECORDS SUMMARY | 2022-07-20 13:20 | XMS_ITS | Encounter Summary ---
:1985 Author Organization [place] Address [address] [place] [address] Care Team Providers Name Role Phone Maty Barrett MD Primary Care Provider [phone] Encounter Details Date Type Department Care Team Description 02/01/[address] [facility] Caity King See Suprap ubic pressure Urology Clinic Sarah Hernandez MD (Primary Dx) [address] [facility] [address] [facility] [address] [facility] [address] [place] [address] [place], [place] [phone] (Wo rk) Social History Tobacco Use Types [...] Procedure Name Priority Date/Time Associated Comments Diagnosis HCG QUALITATIVE Routine 02/01/2018 4:26 PM Suprapubic pressure Results for this CDT procedure are i n the results section. documented in this encounter Results HCG qualitative (02/01/2018 4:26 PM CDT) [facility] Method Time Signature HCG Qualitative Negative NEG^Negat 02/01/2018 [place] Serum evan 6:48 PM CDT [facility] Comment: This test is for screening purposes. ??R esults should be interpreted along with the clinical picture. ??Confirmation te sting is available if warranted by ordering [id number], HCG Quantitative Pregna ncy. Specimen Anatomical Collection Method Collection Time Receive d Time (Source) Location / / Volume Laterality Blood specimen 02/01/2018 4:26 PM 018 4:27 (specimen) CDT PM CDT Caity Kei King MD LAB - BLOOD ORDERABLES Performing Organization Address City/State/ZIP Code Phon e Number [facility] [address] [place] [address] documented in this encounter Visit Diagnoses Diagnosis Suprapubic pressure - Primary Abdominal pain, other specified site documented in this encounter Care Teams Rn Maternal Child Relationship Specialty Start Date End Date Maty Barrett MD PCP - General seasonal recruiter 06/08/17 [facility] RESEARCH PROGRAMMER CONSULT [address] [facility] [address] [place] [phone] documented as of this encounter
--- OUTSIDE RECORDS SUMMARY | 2022-07-20 13:20 | XMS_ITS | Encounter Summary ---
:1985 Author Organization [place] Address [facility] [place] [address] Care Team Providers Name Role Phone Maty Barrett MD Primary Care Provider [phone] Reason for Referral ANI Physical Therapy - Closed Specialty Diagnoses / Procedures Referred By Contact Refer red To Contact Diagnoses Microscopic hematuria Pelvic floor dysfunction Myalgia of pelvic floor Urgency-frequency syndrome Colleen King MD [address] [facility] [address] [place], [place] [address] Referral ID Status Reason Start Date Expiration Date Visits Requ ested Visits Authorized [id number] Closed 02/22/2018 02/22/2019 1 1 Reason for Visit Reason Comments Cystoscopy Pt with a history of urinary frequency and microscopic hematuria coming in for a cystoscopy Encounter Details Date Type Department Care Team Description 02/22/2018 Office Visit [facility] Colleen King Urgenc y-frequency syndrome (Primary Dx); Urology Clinic Sarah Hernandez MD Myalgia of pelvic floor; [address] [facility] [address] [facility] Pelvic floor dysfunction; [address] [facility] [address] Microscopic hematuria DILSHAD Smith [id number] [place], [place] [phone] (Wo rk) Social History Tobacco Use Types Packs/Day Years Used Date Smoking Tobacco: Never Smokeless Tobacco: Never Alcohol Use Standard Drinks/Week Comments No 0 (1 standard drink = 0.6 oz pure alcoho l) Sex Assigned at Date Recorded Not on file documented as of this encounter Last Filed Vital Signs Vital Sign Reading Time Taken Comments Blood Pressure - - Pulse - - Temperature - - Respiratory Rate - - Oxygen Saturation - - Inhaled Oxygen Concentration - - Weight 54.4 kg (120 lb) 02/22/2018 1:04 PM CDT Height 167.6 cm (5' 6) 02/22/2018 1:04 PM CDT Body Mass Index 19.37 02/22/2018 1:04 PM CDT documented in this encounter Patient Instructions Patient InstructionsFoColleen ponce See MD David - 02/22/2018 1:00 PM CDT Websites with free information: [employer] patient website: www.voicesforpfd.org Total Control Program: www.totalcontrolprogram.com Please see one of the dedicated pelvic floor physical therapist ([facility] [phone]) Please return to see me in 4 months, sooner if needed It was a pleasure meeting with you [...] leaving completely satisfied with your care experience. AFTER YOUR CYSTOSCOPY ? You have just [...] our office with any concerns or questions @[facility], [facility]. documented in this encounter Progress Notes Colleen King MD - 02/22/2018 1:00 PM CDT February 22, 2018 Return visit Patient returns today for follow up.She denies any changes in her health since last visit. Ht 1.676 m (5' 6) Wt 54.4 kg (120 lb) BMI 19.37 kg/m2 She is comfortable, in no distress, non-labored breathing. Abdomen is soft, non- tender, non-distended. Normal external female genitalia. Negative HAND WINDER. Pelvic exam is remarkable for myofascial tenderness of the pelvic floor. She has stage I support on supine strain. Cystoscopy Note: After informed consent was obtained patient was prepped and draped in the standard fashion. The flexible cystoscope was inserted into a normal appearing urethral meatus. The urotheliumwas carefully examined and there was a little irregular patch in the trigone but there were no obvious tumors, masses, stones, foreign bodies, or other urothelial abnormalities noted. Bilateral ureteral orifices were noted in the normal orthotopic position and both effluxed clear urine. The cystoscopewas retroflexed and the bladder neck was unrmarkable. The urethra was carefully examined upon removing the cystoscope and was unremarkable. Patient tolerated the procedure without complications noted. CT urogram images were reviewed an did not show obvious source of microscopic hematuria A/P: 32 year old F with urinary urgency frequency, myofascial tenderness of the pelvic floor, pelvicfloor dysfunction, microscopic hematuria s/p negative urologic evaluation Urine cytology to complete evaluation given slight irregularity in trigone area. We discussed that at this time we would recommend observation. Per the AUA guidelines she can have yearly urinalyses. Ifivan has two consecutive negative annual urinalyses no further urinalyses are indicated for this purpose. If she has persistent or recurrent asymptomatic microscopic hematuria then would consider nephrology evaluation in the short term and urologic evaluation in 3-5 years We discussed how her pelvic floor symptoms are related to the physical exam findings and her pelvic floor myofascial dysfunction. We discussed how the recommended treatment is dedicated pelvic floor therapy. We discussed how the pelvic floor physical therapy works and patient is agreeable. Referral was placed. RTC 4 months, sooner if needed Colleen King MD MPH Human Performance Technologist of Urology CC Patient Care Team: Maty Barrett MD as PCP - General (decorating supervisor) documented in this encounter Plan of Treatment Scheduled Referrals Name Type Priority Associated Diagnoses Order S chedule ANI Physical Therapy Referral Routine Microscopic hematuria Ordered: 02/22/2018 Referral Pelvic floor dys function Myalgia of pelvi c floor Urgency-frequency syndrome documented as of this encounter Procedures Procedure Name Priority Date/Time Associated Comments Diagnosis HC CYSTOURETHROSCOPY Routine 02/22/2018 1:33 PM Urgency-freque ncy CDT syndrome Microscopic hematuria CYTOLOGY NON SUPERVISOR LONG GOODS Routine 02/22/2018 1:32 PM Urgency-frequency Results for this CDT syndrome procedure are in Microscopic the results hematuria section. documented in this encounter Results Cytology non heater furnace [[id number]] (02/22/2018 1:32 PM CDT) Component Value Ref Test Analysis Performed At [facility] Range Method Time Signature Copath Report Patient Name: BRITTANY BESS MR#: [id number] Specimen #: [id number] Collected: 02/22/2018 Received: 02/23/2018 Reported: 02/24/2018 09:18 Ordering Phy(s): COLLEEN KING For improved result formatting, select 'View Enhanced Report Format' under Linked Documents section. SPECIMEN/STAIN PROCESS: Urine-voided ? Pap-Cyto x 1 ---- CYTOLOGIC INTERPRETATION: Urine-voided: ?? Negative for High-Grade Urothelial Carcino ma Specimen Adequacy: Satisfactory for evaluation. I have personally reviewed all specimens and/or slides, incl uding the listed special stains, and used them with my medical judgement to determine or confirm the final diagnosis. Electronically signed out by: Christiane Tucker M.D. [facility] CLINICAL HISTORY: Microscopic hematuria. , GROSS: Urine-voided: ??Received 65 ml of yellow, clear fluid, proce ssed as 1 Pap stained Autocyte.. 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
--- OUTSIDE RECORDS SUMMARY | 2022-07-20 13:20 | XMS_ITS | Encounter Summary ---
:1985 Author Organization [place] Address [facility] [place] [address] Care Team Providers Name Role Phone Maty Barrett MD Primary Care Provider [phone] Reason for Visit Reason Onset Date Comments . 09/23/2017 questions---- freq Encounter Details Date Type Department Care Team Description 09/23/2017 Telephone [facility] Elsie Peters, Sonja (conner hansen---- freq) Urology Clinic Sarah VILLEDA [address] [place] [address] [place], [place] [id number] Social History Tobacco Use Types Packs/Day Years Used Date Smoking Tobacco: Never Smokeless Tobacco: Never Alcohol Use Standard Drinks/Week Comments No 0 (1 standard drink = 0.6 oz pure alcoho l) Sex Assigned at Date Recorded Not on file documented as of this encounter Miscellaneous Notes Telephone Encounter - Shahnaz Gaming CMA - 09/23/2017 3:58 PM CST Pt calling and stating she is having some lower abd discomfort. Pt states its not like a UTI. I suggested she try cutting out alcohol, fruit juice and caffeine. She will call us back if needed. Belinda Gaming CMA CLOSING MACHINE TENDER documented in this encounter Plan of Treatment Not on filedocumented as of this encounter Visit Diagnoses Not on filedocumented in this encounter Care Teams Set O Type Operator Relationship Specialty Start Date End Date Maty Barrett MD PCP - General digital advertising specialist 06/08/17 [facility] TEST DESIGN ENGINEER CONSULT [address] [facility] [address] [place] [phone] documented as of this encounter
--- OUTSIDE RECORDS SUMMARY | 2022-07-20 13:20 | XMS_ITS | Encounter Summary ---
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 Diagnoses Uterine contractions during Vaginal delivery Rh Procedures LABOR AND DELIVERY [address] [place], [place] [address] Phone: Fax: Referral ID Status Reason Start Date Expiration Date Visits Requ ested Visits Authorized [id number] 1 1 Encounter Details Date Type Department Care Team Description 07/18/2020 - Hospital Encounter [facility] Luz Elena Meyersalise 07/20/2020 Max Birthdavid Jama MD [address] [facility] HEALTH CARE MARKETING MANAGER [place], [place] [address] [place] [phone] [facility] [phone] [place], [place] [id number] Social History Tobacco Use Types Packs/Day Years Used Date Smoking Tobacco: Never Smokeless Tobacco: Never Alcohol Use Standard Drinks/Week Comments No 0 (1 standard drink = 0.6 oz pure alcoho l) Sex Assigned at Date Recorded Not on file documented as of this encounter Last Filed Vital Signs Vital Sign Reading Time Taken Comments Blood Pressure 112/68 07/20/2020 9:28 AM CDT Pulse 84 07/20/2020 9:28 AM CDT Temperature 36.6 ??C (97.8 ??F) 07/20/2020 9:28 AM CDT Respiratory Rate 18 07/20/2020 9:28 AM CDT Oxygen Saturation 100% 07/18/2020 5:35 PM CDT Inhaled Oxygen Concentration - - Weight 70.8 kg (156 lb) 07/18/2020 3:06 PM CDT Height 170.2 cm (5' 7) 07/18/2020 3:06 PM CDT Body Mass Index 24.43 07/18/2020 3:06 PM CDT documented in this encounter Discharge Instructions Discharge InstructionsDinorah Ahn RN - 07/20/2020 1:23 PM CDT Vaginal Delivery Instructions Home care: [phone] Please follow up with your HEALTH CARE MARKETING MANAGER provider in 6 weeks. Activity ?? Ask family and friends for help when you need it. ?? Do not place anything in your vagina for 6 weeks. ?? You are not restricted on other activities, but take it easy for a few weeks to allow your body to recover from delivery. You are able to do any activities you feel up to that point. ?? No driving until you have stopped taking your pain medications (usually two weeks after delivery). Call your health care provider if you have any of these symptoms: ?? Increased pain, swelling, redness, or fluid around your stiches from an episiotomy or perineal tear. ?? A fever above 100.4 F (38 C) with or without chills when placing a thermometer under your tongue. ?? You soak a sanitary pad with blood within 1 hour, or you see blood clots larger than a golf ball. ?? Bleeding that lasts more than 6 weeks. ?? Vaginal discharge that smells bad. ?? Severe pain, cramping or tenderness in your lower belly area. ?? A need to urinate more frequently (use the toilet more often), more urgently (use the toilet veryquickly), or it carias when you urinate. ?? Nausea and vomiting. ?? Redness, swelling or pain around a vein in your leg. ?? Problems or a red or painful area on your breast. ?? Chest pain and cough or are gasping for air. ?? Problems coping with sadness, anxiety, or depression. If you have any concerns about hurting yourself or the baby, call your provider immediately. ?? You have questions or concerns after you return home. Keep your hands clean: Always wash your hands before touching your perineal area and stitches. This helps reduce your risk of infection. If your hands aren't dirty, you may use an alcohol hand-rub to clean your hands. Keep your nails clean and short. documented in this encounter Medications at Time of Discharge Medication Sig Dispensed Refills Start Date End Date Cranberry 1000 MG CAPS 0 ibuprofen (ADVIL,MOTRIN) Take 1 tablet (600 0 600 MG tabletIndications: mg) by mouth every 6 (spontaneous vaginal hours as needed for delivery) other (cramping) Vit-Fe 0 Fumarate-FA ( VITAMINS PO) documented as of this encounter Progress Notes Eve Diane MD - 07/20/2020 11:17 AM CDT July 20, 2020 Progress Note: DAILY NOTE - DAY 2 SUBJECTIVE: feeling well; discharge today Pain controlled? Yes Tolerating a regular diet? YES Ambulating? YES Voiding without difficulty? Yes Lochia? minimal : yes Desired contraception? none OBJECTIVE: Vitals: 07/19/20 0952 07/19/20 1547 07/20/20 0005 07/20/20 0928 BP: 111/65 110/66 107/66 112/68 Pulse: 70 68 86 84 Resp: 16 18 18 18 Temp: 97.9 ??F (36.6 ??C) 97.8 ??F (36.6 ??C) 98.4 ??F (36.9 ??C) 97.8 ??F (36.6 ??C) TempSrc: Oral Oral Oral Oral SpO2: Weight: Height: Constitutional: healthy, alert and no distress Abdomen: Uterine fundus is firm, non-tender and at the level of the umbilicus Extremeties: edema, non-tender LABS: Hemoglobin Date Value Ref Range Status 07/20/2020 11.3 (L) 11.7 - 15.7 g/dL Final 03/25/2016 10.6 (L) 11.7 - 15.7 g/dL Final No results found for: RUBELLAABIGG Lab Results Component Value Date ABO A 07/18/2020 Lab Results Component Value Date RH Pos 07/18/2020 ASSESSMENT: Post- day #2 Normal spontaneous vaginal delivery Doing well. PLAN: Discharge later today Eve Diane MD Kaela Gracia MD - 07/19/2020 9:30 AM CDT OB Post- Note PPD#1 S: Patient doing well. Pain controlled. Voiding. Bleeding is normal. Breast feeding. O: BP 111/65 Pulse 70 Temp 97.9 ??F (36.6 ??C) (Oral) Resp 16 Ht 1.702 m (5' 7) Wt 70.8 kg (156 lb) SpO2 100% Unknown BMI 24.43 kg/m?? Gen- A&O, NAD Abd- Non-tender, fundus firm at umbilicus Ext- non-tender, no edema Hemoglobin Date Value Ref Range Status 03/25/2016 10.6 (L) 11.7 - 15.7 g/dL Final A pos Rubella Immune A/P: 35 year old PPD#1 s/p . Doing well. - Routine post- cares. - Analgesia with tylenol and ibuprofen - Rh pos, rubella immune - - Hgb pending in AM Dispo: Anticipate d/c home on PPD# 2. Kaela Gracia MD 07/19/2020 10:25 AM Stephanie Meyers MD - 07/18/2020 6:38 PM CDT [facility] Labor Progress Note S: Patient comfortable with VLADIMIR, still feeling some contractions O: Patient Vitals for the past 4 hrs: BP Temp Temp src Resp SpO2 Height Weight 07/18/20 1821 102/55 -- -- -- -- -- -- 07/18/20 1802 118/56 -- -- 16 -- -- -- 07/18/20 1757 111/62 -- -- 16 -- -- -- 07/18/20 1752 109/62 -- -- 16 -- -- -- 07/18/20 1745 113/63 99 ??F (37.2 ??C) Oral 20 -- -- -- 07/18/20 1739 112/65 -- -- -- -- -- -- 07/18/20 173 113/69 -- -- -- -- -- -- 07/18/20 1735 112/76 -- -- -- 100 % -- -- 07/18/20 1731 117/65 -- -- -- -- -- -- 07/18/20 1730 -- -- -- -- 100 % -- -- 07/18/20 1728 131/70 -- -- -- -- -- -- 07/18/20 1700 124/75 -- -- 20 -- -- -- 07/18/20 1506 115/68 98.1 ??F (36.7 ??C) Oral 18 -- 1.702 m (5' 7) 70.8 kg (156 lb) SVE: Per RN SROM with clear fluid FHT: Baseline 120, moderate variability, no accelerations, variable decelerations Henderson: Contractions Q 2-3 min A/P: 35 year old at 39w6d admitted with spontaneous labor . Labor: expectant mgmt , progressing on her own FWB: Category 1 FHT GBS: negative Epidural Anticipate MD Keerthi Barcenas HEALTH CARE MARKETING MANAGER 07/18/2020, 6:38 PM documented in this encounter H&P Notes Stephanie Meyers MD - 07/18/2020 4:17 PM CDT OB Brief Admit H&P No significant change in general health status based on examination of the patient, review of Nursing Admission Database and record. Pt is a 35 year old @ 39w6d who presented to L&D with regular painful contractions. Patient's course has been complicated by 1. Seizure after Blood draw x 1 2. Failed 1 hr, passed 3 hr gtt 3. Prior baby with IUGR 4. AMA declines genetic testing Labs: Blood type A+ Rubella immune GCT- failed, passed 3 hr Hep B/HIV /RPR negative GBS negative S/p tdap and flu vaccine EFW: 7-7.5# BP 115/68 Temp 98.1 ??F (36.7 ??C) (Oral) Resp 18 Ht 1.702 m (5' 7) Wt 70.8 kg (156 lb) BMI 24.43 kg/m?? EFM: 150 +accels, no decels, mod variability Henderson: Q2 min SVE: 3-4/90/-1 Membranes: intact Assessment: 35 year old @ 39w6d admitted for early labor. Plan: 1. Admit to labor and delivery 2. GBS negative 3. Expectant management 4. Admit labs, COVID swab. 5. Epidural if desires Stephanie Meyers MD 07/18/2020 4:17 PM documented in this encounter Miscellaneous Notes Plan of Care - Dinorah Ahn RN - 07/20/2020 12:36 PM CDT Data: Vital signs within normal limits. checks within normal limits - see flow record. Patient eating and drinking normally. Patient able to empty bladder independently and is up ambulating.No apparent signs of infection. Laceration healing well. Patient performing self cares and is able to care for infant. Action: Patient did not require medication during the shift for pain and cramping. Patient educationdone about discharge and infant cares. See flow record. Response: Positive attachment behaviors observed with . Support persons are present. Discharge instructions discussed and all questions and concerns addressed. Home care referral sent r/t first time . Pt discharged with infant and to home in private transportation at 1443. Plan of Care - Ema Shields RN - 07/20/2020 4:26 AM CDT Vital Signs: VSS, afebrile Pain/Comfort:resting well between feedings, nothing taken for pain so far Assessment: fundus is firm, every 2-3 hours, baby was cluster feeding at the beginningof the shift Diet: regular diet Output: voiding Activity/Ambulation:ambulates freely in room Social: is here Plan:continue to monitor closely and provide for needs Plan of Care - Felicia Bernstein RN - 07/19/2020 6:43 PM CDT Up ad hesham . Independent with self and infant care . Instructed to fill out certificate and depression scale and watch videos. Taking ibuprofen for cramping. Tessie pad given for lulú discomfort. Plan of Care - Dinorah Ahn RN - 07/19/2020 2:51 PM CDT Vital signs stable on room air. Bonding well with infant. at bedside and supportive. well with minimal assistance from staff. Pain adequately controled with ibuprofen. Independentwith cares for self and . Voiding spontaneously. Plan of Care - Gloria Larson RN - 07/19/2020 4:56 AM CDT Patient vital signs stable and meeting expected outcomes. well. Up independently and voiding adequately. Pain well controlled with ibuprofen. Able to perform all cares for self and infant. Bonding well with baby. FOB present and supportive at bedside. Will continue to monitor. Plan of Care - Virginia Spain RN - 07/18/2020 11:11 PM CDT Data: Brittany Bess transferred to [facility] via wheelchair at 2305. Baby transferred via parent's arms. Action: Receiving unit notified of transfer: Yes. Patient and family notified of room change. Reportgiven to Gloria RN at 2305. Belongings sent to receiving unit. Accompanied by Registered Nurse. Oriented patient to surroundings. Call light within reach. ID bands double-checked with receiving RN. Response: Patient tolerated transfer and is stable. L&D Delivery Note - Stephanie Meyers MD - 07/18/2020 9:05 PM CDT Delivery Summary Brittany Bess Age: [age] year old Date of : 1985 ASSESSMENT & PLAN: OB Vaginal Delivery Note HPI: Pt is a 35 year old @ 39w6d who presented to L&D on 07/18/2020 for spontaneous labor. labs: A antibody screen: negative, Rubella Immune, Hep B/HIV/RPR all negative, GC/CT negative, GCT failed, passed 3 hr, GBS negative complications: 1. Seizure after Blood draw x 1 2. Failed 1 hr, passed 3 hr gtt 3. Prior baby with IUGR 4. AMA declines genetic testing Hospital Course: First Stage: On admission, contractions were every 2 minutes and patient was 3- 4cm dilated. FHTs were in the 150s with accelerations present. moderate variability, no decelerations noted. Abdomen was non-tender. EFW was 7-7.5# by Avel's. Patient's labor progressed spontaneously. At the patient's request, she received epidural analgesia. She did not receive pitocin for augmentation of labor. Spontaneous ROM occurred at 1805 with clear fluid noted. Patient reached complete cervical dilation at 1911on 07/18/2020. Second Stage: Patient did not labor down , and began pushing at 1911. Good maternal expulsive efforts were noted. heart tones remained reassuring during the second stage. Baseline 110, with moderate variability, variable decelerations noted. She was able to bring the vertex to a full crown. Due to tight band of scar tissue noted at introitus, discussed episiotomy with patient who agreed. 2nd degree midline episiotomy was made. The vertex was then easily delivered, followed by the shoulders without complications. A nuchal cord was not present. A male infant was then deliveredwithout complications at 2026 on 07/18/2020. The mouth and nares were bulb suctioned. The cord was clamped after delayed cord clamping, cut and the was placed on maternal abdomen. The infant's weight was 7 pounds 11 ounces. Apgars were 8 and 9 at one and five minutes . Third Stage: The placenta then delivered at 2035 . It was noted to be intact with a three vessel cord. The patient's perineum was inspected and 2nd degree midline episiotomy without extension noted. This was repaired in the usual fashion using 3-0 vicryl suture. EBL for the procedure was 77ml. Sponge and needle counts were correct. The patient and infant remained in the delivery suite following delivery in stable condition. Stephanie Meyers MD 07/18/2020 9:06 PM Pipe Bess [[id number]] Labor Event Times Labor onset date: 07/18/20 Onset time: 5:17 PM Start pushing date/time: 07/18/2020 1911 Labor Events labor?: No steroids: None Labor Type: Spontaneous Antibiotics received during labor?: No Rupture date/time: 07/18/20 1805 Rupture type: Spontaneous rupture of membranes occuring during spontaneous labor or augmentation Fluid color: Clear Fluid odor: Normal Delivery/Placenta Date and Time Delivery Date: 07/18/20 Delivery Time: 8:27 PM Placenta Date/Time: 07/18/2020 8:36 PM Oxytocin given at the time of delivery: after delivery of baby Vaginal Counts Initial count performed by 2 team members: Two Team Members zoie meyers [place] Suture [place] Sponges Instruments Initial counts 2 5 Added to count 1 Final counts 2 1 5 Placed during labor Accounted for at the end of labor No NA No NA No NA Final count performed by 2 team members: Two Team Members Dr. Cain Cat RN Final count correct?: Yes Apgars Living status: Living 1 Minute 5 Minute 10 Minute 15 Minute 20 Minute Skin color: 0 1 Heart rate: 2 2 Reflex irritability: 2 2 Muscle tone: 2 2 Respiratory effort: 2 2 Total: 8 9 Apgars assigned by: VIRGINIA SPAIN RN Cord Complications: None Cord Blood Disposition: Lab Gases Sent?: No [place] Resuscitation Methods: None Output in Delivery Room: Voided Measurements Weight: 7 lb 11 oz Length: 1' 8 Head circumference: 34.3 cm Skin to Skin and Feeding Plan Skin to skin initiation date/time: 10/19/1840 Skin to skin with: Mother Skin to skin end date/time: How do you plan to feed your baby: Labor Events and Shoulder Dystocia Tracing Prior to Delivery: Category 1 Shoulder dystocia present?: Neg Delivery (Maternal) (Provider to Complete) ([id number]) Episiotomy: Median Perineal lacerations: 2nd Repaired?: Yes Blood Loss Mother: Brittany Bess Luz Elena #[id number] Start of Mother's Information IO Blood Loss 07/18/20 1717 - 07/18/20 2237 Delivery QBL (mL) Hospital Encounter 77 mL Total 77 mL End of Mother's Information Mother: Brittany Bess Luz Elena #[id number] Delivery - Provider to Complete ([id number]) Delivering clinician: Stephanie Meyers MD Attempted Delivery Types (Choose all that apply): Spontaneous Vaginal Delivery Delivery Type (Choose the 1 that will go to the History): Vaginal, Spontaneous Other personnel: Provider Role Stephanie Meyers MD Newspaper Photographer Virginia Spain, supervisor brew house Nurse Tressa Cat RN Registered Nurse Placenta Delayed Cord Clamping: Done Date/Time: 07/18/2020 8:36 PM Removal: Spontaneous Disposition: Hospital disposal Anesthesia Method: Epidural Presentation and Position Presentation: Vertex Position: Left Occiput Anterior Stephanie Meyers MD Provider Notification - Zoie Escalona RN - 07/18/2020 4:19 PM CDT 07/18/20 1615 Provider Notification Provider Name/Title Dr. Meyers Method of Notification Phone Notification Reason Patient Arrived;SVE;Status Update;Labor Status Received order to admit for labor documented in this encounter Plan of Treatment Not on filedocumented as of this encounter Procedures Procedure Name Priority Date/Time Associated Comments Diagnosis HEMOGLOBIN Routine 07/20/2020 6:07 AM Results f or this CDT procedure are i n the results section. SARS-COV-2 Routine 07/18/2020 5:10 PM Results f or this (COVID-19) VIRUS CDT procedure a re in RT-PCR the results section. COVID-19 VIRUS Routine 07/18/2020 5:10 PM Results for this (CORONAVIRUS) BY PCR CDT procedu re are in the results section. TREPONEMA ABS W STAT 07/18/2020 4:30 PM Result s for this REFLEX TO RPR AND CDT procedure are in TITER the results section. ABO AND RH STAT 07/18/2020 4:30 PM Results f or this CDT procedure are i n the results section. documented in this encounter Results (ABNORMAL) Hemoglobin (07/20/2020 6:07 AM CDT) P athologist Signature Hemoglobin 11.3 (L) 11.7 - 15.7 07/20/2020 [place] g/dL 6:39 AM CDT [facility] Specimen Anatomical Collection Method Collection Time Receive d Time (Source) Location / / Volume Laterality Blood specimen 07/20/2020 6:07 AM 020 6:08 (specimen) CDT AM CDT Kaela Gracia MD LAB - BLOOD ORDERABLES Performing Organization Address City/State/ZIP Code Phon e Number M [facility] [address], [place] [address] [facility] [address], [place] [address] [place] [address] SARS-CoV-2 COVID-19 Virus (Coronavirus) RT-PCR Nasopharyngeal (07/18/2020 5:10 PM CDT) [facility] Method Time Signature SARS-CoV-2 Manual 07/18/2020 [facility] Virus Platelet 9:37 PM CDT [facility] Specimen [facility] SARS-CoV-2 NEGATIVE 07/18/2020 [facility] PCR Result 9:37 PM CDT [facility] Comment: SARS-CoV2 (COVID-19) RNA not de tected, presumed negative. SARS-CoV-2 PCR Testing was performed using the Xpert Xpress SARS-CoV-2 Assay on the avocadostore Gene-Xpert 07/18/2020 9:37 PM [facility] Comment Instrument Systems. Addition al information about this Emergency Use Authorization (EUA) [facility] assay can be found via the Lab Guide. [facility] Comment: This test should be ordered for the dete ction of SARS-CoV-2 in individuals who meet SARS-CoV-2 clinical and/or epidemi ological criteria. Test performance is unknown in asymptomatic patients. This test is for in vitro diagnostic use under the FDA EUA for laboratories certified under CLIA to perform high com plexity testing. This test has not been FDA cleared or approved. A negative result does not rule out the presence of PCR inhibitors in the specimen or target RNA in concentration below the limit of detection for the assay. The possibility of a false negati ve should be considered if the patient's recent exposure or clinical pr esentation suggests COVID-19. This test was validated by the [facility] Infectious Diseases Diagnostic Laboratory. This laboratory i s certified under the Clinical Laboratory Improvement Amendments of 198 8 (CLIA-88) as qualified to perform high complexity laboratory testing. Specimen (Source) Anatomical Collection Method Collection Time Re ceived Time Location / / Volume Laterality Specimen from 07/18/2020 5:10 07/18/2020 nasopharyngeal PM CDT 5:53 PM CDT structure (specimen) Stephanie eMyers MD LAB - MICRO GENERAL ORDERABL ES Performing Organization Address City/State/ZIP Code Phon e Number [facility] [address] [place], [place] [id number] [place] [address] Asymptomatic COVID-19 Virus (Coronavirus) by PCR (07/18/2020 5:10 PM CDT) [facility] Method Time Signature COVID-19 Manual 07/18/2020 [place] Virus PCR to Platelet 5:53 PM CDT [facility] Source COVID-19 Test 07/18/2020 INFECTIOUS Virus PCR to received-See 8:33 PM CDT [facility] - reflex to DIAGNOSTIC Result IDDL test LABORATORY, SARS CoV2 [facility] (COVID-19) Virus RT-PCR Specimen (Source) Anatomical Collection Method Collection Time Re ceived Time Location / / Volume Laterality Specimen from 07/18/2020 5:10 07/18/2020 nasopharyngeal PM CDT 5:53 PM CDT structure (specimen) Stephanie Meyers MD LAB - MICRO GENERAL ORDERABL ES Performing Organization Address City/State/ZIP Code Phon e Number INFECTIOUS DISEASES [address] [place] [address] DIAGNOSTIC LABORATORY, [facility] [address], [place] [address] [facility] [phone] Treponema Abs w Reflex to RPR and Titer (07/18/2020 4:30 PM CDT) Patholo gist Method Time Signature Treponema Nonreactive NR^Nonrea 07/19/2020 [facility] ctive 9:47 AM CDT [facility] Comment: Methodology Change: Test performed on DiaSorin Liaison XL by Treponema pallidum Total Antibodies Assay as of . Specimen Anatomical Collection Method Collection Time Receive d Time (Source) Location / / Volume Laterality Blood specimen 07/18/2020 4:30 PM 020 4:57 (specimen) CDT PM CDT Stephanie Meyers MD LAB - BLOOD ORDERABLES Performing Organization Address City/State/ZIP Code Phon e Number [facility] [address] [place] [address] [facility] ABO and Rh (07/18/2020 4:30 PM CDT) Analysis Performed At Path logist Time Signature ABO A 07/18/2020 [place] 5:54 PM CDT [facility] RH(D) Pos [facility] Specimen 07/21/2020 07/18/2020 [place] Expires 5:54 PM CDT [facility] Specimen Anatomical Collection Method Collection Time Receive d Time (Source) Location / / Volume Laterality Blood specimen 07/18/2020 4:30 PM 020 4:57 (specimen) CDT PM CDT Stephanie Meyers MD LAB - BLOOD BANK TEST ORDER Performing Organization Address City/State/ZIP Code Phon e Number [facility] [address], [place] [address] [facility] [address] [place], [place] [address] [address] [phone] documented in this encounter Visit Diagnoses Diagnosis Uterine contractions during Vaginal delivery Normal delivery documented in this encounter Administered Medications Inactive Administered Medications - up to 3 most recent administrations Medication Order MAR Action Action Date Dose Rate Site docusate sodium (COLACE) capsule Given 07/20/2020 9:27 AM CDT 10 0 mg 100 mg 100 mg, Oral, 2 TIMES DAILY, First dose on 07/19/20 at 0030, To prevent constipation. Hold for loose stools. Hold for loose stools. Given 07/19/2020 9:49 PM CDT 100 mg Given 07/19/2020 9:52 AM CDT 100 mg fentaNYL (SUBLIMAZE) 2 New Syringe/Cartridge 07/18/2020 5:32 PM CDT 1 0 mL/hr mcg/mL, bupivacaine (MARCAINE) 0.125% in NS premix for PCEA PCEA dose (mL): 5, PCEA Lockout Interval (min): 15 minutes, Hour Limit (mL): 20, Continuous Rate (Basal Rate) (mL/hr): 10, Absolutely no anticoagulants, thrombolytics or antiplatelet medications or other opioid analgesics or other sedatives without prior notification of anesthesiology. For CADD cassettes, pharmacy to send epidural tubing set., Routine ibuprofen (ADVIL/MOTRIN) tablet 800 mg Given 07/19/2020 9:49 PM CDT 800 mg 800 mg, Oral, EVERY 6 HOURS PRN, other, cramping, Starting on 07/19/20 at 0023, Start 6 hours after ketorolac is completed (if ordered). Max dose: 3200 mg/day Given 07/19/2020 3:42 PM CDT 800 mg Given 07/19/2020 9:52 AM CDT 800 mg lactated ringers infusion New Bag 07/18/2020 5:45 PM CDT 125 mL/hr at 125 mL/hr, Intravenous, CONTINUOUS, Starting on Tue07/18/20 at 1630, Until 07/19/20 at 0023 Rate/Dose Change 07/18/2020 4:51 PM CDT 999 mL/hr New Bag 07/18/2020 4:31 PM CDT 125 mL/hr oxytocin (PITOCIN) 30 units Rate/Dose Change 07/18/2020 9:01 PM 100 mL/hr 100 mL/hr in 500 mL 0.9% NaCl CDT infusion 100-340 mL/hr, Intravenous, CONTINUOUS PRN, after delivery to treat or prevent uterine atony, Starting on Tue07/18/20 at 1615, Administer 340 mL/hr over 30 minutes for a total of 170 mL then decrease to 100 mL/hr until infusion complete (about 3.5 hours) or per provider direction. Start new bag at delivery. Discontinue or saline lock peripheral IV per nurse discretion. New Bag 07/18/2020 8:31 PM CDT 340 mL/hr 340 mL/hr documented in this encounter Active and Recently Administered Medications Times are shown in CDT. Scheduled Medication Order 07/18/2020 07/19/2020 07/20/2020 docusate sodium (COLACE) capsule 100 mg 0116 (Canceled Entry - Provider: Gloria Larson RN)0952 (Given - Provider: Dinorah Ahn, SARAH)214 (Given - Provider: Felicia Bernstein RN) 09 (Given - Provider: Dinorah Ahn, SARAH) 100 mg, Oral, 2 TIMES DAILY, First dose on Tue07/19/20 at 0030, To prevent constipation. Hold for loose stools. Hold for loose stools. fentaNYL (SUBLIMAZE) 2 mcg/mL, bupivacai ne (MARCAINE) 0.125% in NS premix for PCEA (CANCELED) 935 (New Syringe/Cartridge - Provider: Zoie Escalona, SARAH)2032 (Stopped - Provider: Virginia Spain RN) 0116 (Canceled Entry - Provider: Gloria Larson, SARAH) PCEA dose (mL): 5, PCEA Lockout interval (min): 15 minutes, Hour Limit (mL): 20, Continuous Rate (Basal Rate) (mL/hr): 10, Absolutely no anticoagulants, thrombolytics or antiplatelet medications or othe r opioid analgesics or other sedatives w ithout prior notification of anesthesiology. For CADD cassettes, pharmacy to send epidural tubing set., Routine Continuous Medication Order 07/18/2020 07/19/2020 07/20/2020 lactated ringers infusion (CANCELED) 1631 (New Bag - P rovider: Zoie Escalona, RN)1651 (Rate/Dose Change - Provider: Zoie Escalona, RN)1745 (New Bag - Provider: Zoie Escalona, RN)2030 (Stopped - Provider: Virginia Spain, SARAH) at 125 mL/hr, Intravenous, CONTINUOUS, S tarting 07/18/20 at 1630, Until 07/19/20 at 0023 oxytocin (PITOCIN) 30 units in 500 mL 0.9% NaCl infusion 0317 (Canceled Entry - Provider: Gloria Larson RN) 100 mL/hr, at 100 mL/hr, Intravenous, CO NTINUOUS, Starting 07/19/20 at 0030, At 100 mL/hr to follow after initial oxytocin loading dose (340 mL/hr). Continue until infusion complete (about 3.5 hours ) or per provider discretion. Begin afte r delivery of placenta; IV to continue until patient stable. Discontinue or saline lock per nurse discretion. PRN Medication Order 07/18/2020 07/19/2020 07/20/2020 acetaminophen (TYLENOL) tablet 650 mg 650 mg, Oral, EVERY 4 HOURS PRN, mild pa in, fever, greater than or equal to 38?? C /100.4?? F (oral) or 38.5?? C/ 101.4?? F (core)., Starting 07/19/20 at 0023, Maximum acetaminophen dose from all sources = 75 mg/kg/day not to exceed 4 grams/day. bisacodyl (DULCOLAX) Suppository 10 mg 10 mg, Rectal, DAILY PRN, constipation, Starting 07/20/20 at 0000, Hold for loose stools. hydrocortisone 2.5 % cream Rectal, 3 TIMES DAILY PRN, hemorrhoids, Starting 07/19/20 at 0023, Apply to hemorrhoids. Send only if nurse requests. ibuprofen (ADVIL/MOTRIN) tablet 800 mg 0 337 (Given - Provider: Michelle Oakley, SARAH)0941 (Given - Provider: Dinorah Ahn, RN)1542 (Given - Provider: Felicia Bernstein, SARAH)2149 (Given - Provider: Felicia Bernstein, SARAH) 0407 (Canceled Entry - Provider: Orders Generic Provider - Comment: Automatically canceled at discontinue of medication order) 800 mg, Oral, EVERY 6 HOURS PRN, other, cramping, Starting 07/19/20 at 0023, Start 6 hours after ketorolac is completed (if ordered). Max dose: 3200 mg/day lactated ringers BOLUS 1,000 mL Intravenous, 1,000 mL, ONCE PRN, post-pa rtum hemorrhage (PPH), Starting 07/19/20 at 0023, For 1 dose, Rate: 500-1000 mL/hr. lanolin cream Topical, EVERY 1 HOUR PRN, dry skin, sor e nipples, Starting 07/19/20 at 0023, Apply to sore nipples. naloxone (NARCAN) injection 0.1-0.4 mg 0.1-0.4 mg, Intravenous, EVERY 2 MIN PRN , opioid reversal, for respiratory rate less than or equal to 8, Starting 07/19/20 at 0023, For respiratory rate LESS than or EQUAL to 8. Partial reversal dos e: 0.1 mg titrated q 2 minutes for Analg esia Side Effects Monitoring Sedation Level of 3 (frequently drowsy, arousable, drifts to sleep during conversation).Full reversal dose: 0.4 mg bolus for Analgesi a Side Effects Monitoring Sedation Level of 4 (somnolent, minimal or no response to stimulation). For ordered IV doses 0.1-2mg give IVP. Give each 0.4mg over 15 seconds in emergency situations. For non- emergent situations further dilute in 9m L of NS to facilitate titration of response. No MMR Needed - Assessment: Patient does not need MMR vaccine CONTINUOUS PRN, Starting 07/19/20 at 0023, Until 07/20/20 at 1642, Assessment: Patient does not need MMR immunization NO Rho (D) immune globulin (RhoGam) needed - mother Rh POSITIVE CONTINUOUS PRN, Starting 07/19/20 at 0023, Until Sun 0 at 1642 No Tdap Needed - Assessment: Patient does not need Tdap vaccine CONTINUOUS PRN, Starting 07/19/20 at 0023, Until 07/20/20 at 1642, Assessment: Patient does not need Tdap immunization oxytocin (PITOCIN) 30 units in 500 mL 0.9% NaCl infusi on (COMPLETED) 2030 (New Bag - Provider: Virginia Spain, RN)2100 (Rate/Dose Change - Provider: Virginia Spain RN) 100-340 mL/hr, at 100-340 mL/hr, Intrave nous, CONTINUOUS PRN, after delivery to treat or prevent uterine atony, Starting 07/18/20 at 1615, Administer 340 mL/hr over 30 minutes for a total of 170 mL t hen decrease to 100 mL/hr until infusion complete (about 3.5 hours) or per provider direction. Start new bag at delivery. Discontinue or saline lock peripheral IV per nurse discretion. oxytocin (PITOCIN) 30 units in 500 mL 0.9% NaCl infusion 340 mL/hr, at 340 mL/hr, Intravenous, CO NTINUOUS PRN, for hemorrhage (PPH) UNTIL bleeding subsided, Starting 07/19/20 at 0023, When bleeding subsides decrease rate to 100 mL/hr. Notify pr ovider immediately when infusion begun. Oxytocin is first line medication for PPH. oxytocin (PITOCIN) injection 10 Units 10 Units, Intramuscular, ONCE PRN, postp artum hemorrhage (PPH) IF no IV access is available, Starting 07/19/20 at 0023, For 1 dose, Oxytocin is first line medication for PPH. sodium phosphate (FLEET ENEMA) 1 enema 1 enema, Rectal, DAILY PRN, constipation , Starting 07/20/20 at 0000, Use if bisacodyl not effective Hold for loose stools. tranexamic acid 1 g in 100 mL 0.7% NaCl IV bag (premix) 1 g, Intravenous, Administer over 10 Min utes, EVERY 30 MIN PRN, Post- hemorrhage (PPH), Starting 07/19/20 at 0023, For 2 doses, Provider consultation REQUIRED and MUST be administered as soon as the ONSET of bleeding AND within 3 ho urs of regardless of cause of the PPH (atony OR laceration). IF bleeding continues, a 2nd dose may be administered after 30 minutes. IF concern for DIC (Dis seminated Intravascular Coagulation), ob tain coagulation studies PRIOR to administration. Mix in 50 mL or 100 mL normal saline and infuse. Contraindications include: history of PE (Pulmonary Emboli), DV T (Deep Vein Thrombosis) and current Subarachnoid hemorrhage and active DIC. documented in this encounter Care Teams Telesales Supervisor Relationship Specialty Start Date End Date Maty Barrett MD PCP - General high school art teacher 06/08/17 [facility] HUMIDIFIER ATTENDANT CONSULT [address] [phone] documented as of this encounter
--- OUTSIDE RECORDS SUMMARY | 2022-07-20 13:20 | XMS_ITS | Encounter Summary ---
:1985 Author Organization [place] Address Critical access hospital0 [facility] [place] [address] Care Team Providers Name Role Phone Maty Barrett MD Primary Care Provider [phone] Reason for Visit Reason Onset Date Comments Lab Result Notice 08/24/2018 Encounter Details Date Type Department Care Team Description 08/24/2018 Telephone [facility] Caity King, Lab Result Notice [facility] [place] [facility] [address] [facility] [address] [facility] [address] [place] [address] [place], [place] [id number] (Wo rk) Social History Tobacco Use Types Packs/Day Years Used Date Smoking Tobacco: Never Smokeless Tobacco: Never Alcohol Use Standard Drinks/Week Comments No 0 (1 standard drink = 0.6 oz pure alcoho l) Sex Assigned at Date Recorded Not on file documented as of this encounter Miscellaneous Notes Telephone Encounter - Lyudmila Rob LPN - 08/24/2018 10:34 AM CST Left a message for patient that her urine culture from 08/21/18 was negative. She is okay to have her cystoscopy with Dr. King on 08/30/18. Instructed her to call back if she has any questions. Lyudmila Rob LPN ESSIONAL ARCHITECT documented in this encounter Plan of Treatment Not on filedocumented as of this encounter Visit Diagnoses Not on filedocumented in this encounter Care Teams Local Announcer Relationship Specialty Start Date End Date Maty Barrett MD PCP - General timber bucker 06/08/17 [facility] MAINTENANCE ENGINEER OIL FIELD CONSULT [address] [facility] [address] [place] [phone] documented as of this encounter
--- OUTSIDE RECORDS SUMMARY | 2022-07-20 13:21 | XMS_ITS ---
:1985 Author Care Team Providers Name Role Phone Stephanie Barlow Primary Care Provider Unavailable Allergies Code Code System Name Reaction Severity Status Onset NKDA ? Notes: 05/09/2020: Other *Note: ol ay bodywash 05/09/2020: Seasonal Medications Name Status Start Date Stop Date ? ? escitalopram 5 mg tablet Active ? Not ebonie ilable TAKE 1 TABLET BY MOUTH EVERY DAY Vitamin Completed ? 08/31/2021 Tri-Sprintec (28) 0.18 mg(7)/0.215 mg(7)/0.25 mg(7)-35 mcg table t Active ? Not available TAKE 1 TABLET BY MOUTH EVERY DAY Problems Name Status Onset Date Source ? Unknown 05/27/2020 ? Procedures Date Name Performed by ? 03/10/2005 Operation on Jaw NOS Information not ebonie ilable Notes: underbite 07/08/2020 US, Obstetric, 2Nd or 3Rd Trimester, Inf ormation not available Additional Gestation 07/08/2020 US, Obstetric, Biophysical Profile [id number] _liz_edina [address] [place] [address] (Work Place) 02/20/2021 XR, Thoracic Spine Te692_idjrrorfe_oxlb a [address] [place] [phone] (Work Place) 08/31/2021 US, Axilla [facility] [address] [facility] [address] [place] [address] (Work Place) Results Lab Results Date Name Specimen Result Interpretation Description Value Range Status Address ? 06/25/2020 Streptococcus ? Group no group B no group B Complete [place] [facility] B DNA B Strep streptococcus streptococc [facility] by PCR detected by detected by [facility] - PCR. PCR. Lab: [address] 06/25/2020 Hemoglobin ? Finger 12.8 g/dL 12.0-15.0 g/ dL Final Gi355_tetvsj (Hb), stick ale_burnsv il Fingerstick, Hemoglo le: [address] ? Hemoglobin ? Finger 14.0 g/dL 12.0-15.0 g/dL F inal Gb492_dbxdoy (Hb), stick ale_burnsv il Fingerstick, Hemoglo le: [address] Past Encounters 08/31/2021 Gynecologic Examination; Anxiety; Contra ception Care Management; Immunization Advised; Mass of Axilla; Paresthesia of Upper Limb Stephanie Barlow MD: 305 [facility], [address] [address], Ph. 02/20/2021 Pain in Thoracic Spine; Mucous Retention Cyst of Cervix Uteri Stephanie Barlow MD: 305 [facility], [address] [address], Ph. Social History Tobacco Smoking Status Never Smoker Vaccine List Vaccine Type influenza, injectable, quadrivalent, pre servative free 07/02/2020?0.5 mL influenza, seasonal, injectable, preserv ative free 09/02/2015 Tdap 02/10/2016 Plan of Care Patient Instructions will call with XR findings. f/u prn Reminders Provider Appointments None recorded. ? ? Lab None recorded. ? ? Referral None recorded. ? ? Procedures None recorded. ? ? Surgeries None recorded. ? ? Imaging None recorded. ? ? Vitals 08/31/2021 02:45PM G_ANNUAL EXAM Height Weight BMI Blood Pressure 5 ft 6.96 in 121.8 lbs 19.1 kg/m2 128/84 mm[Hg] 02/20/2021 02:30PM G_OFFICE VISIT Height Weight BMI Blood Pressure 5 ft 6.96 in 128.2 lbs 20.1 kg/m2 118/78 mm[Hg] 08/21/2020 10:00AM G_POST VISIT Height Weight BMI Blood Pressure 5 ft 6.96 in 135.6 lbs 21.3 kg/m2 110/62 mm[Hg] 07/17/2020 08:00AM G_OB VISIT Weight Blood Pressure 156.8 lbs 111/78 mm[Hg] 07/08/2020 11:15AM G_OB VISIT Height Weight BMI Blood Pressure 5 ft 6.96 in 154.6 lbs 24.2 kg/m2 116/74 mm[Hg] 07/02/2020 08:00AM G_OB VISIT Weight Blood Pressure 153 lbs 110/68 mm[Hg] 06/25/2020 08:00AM G_OB VISIT Weight Blood Pressure 151.2 lbs 110/68 mm[Hg] 06/10/2020 08:15AM G_OB VISIT Weight Blood Pressure 148 lbs 108/70 mm[Hg] 05/27/2020 11:00AM G_TELEHEALTH 15 [employer] Blood Pressure 12/27/2019 Height Weight BMI Blood Pressure 5 ft 6.96 in 128.81 lbs 20.17 kg/m2 112/74 mm[Hg] 12/13/2019 Height Weight BMI Blood Pressure 5 ft 6.96 in 127.38 lbs 19.95 kg/m2 118/78 mm[Hg] 06/21/2019 Height Weight BMI Blood Pressure 5 ft 6.96 in 126.38 lbs 19.79 kg/m2 102/74 mm[Hg] 06/08/2018 Height Weight BMI Blood Pressure 5 ft 6.96 in 122.63 lbs 19.21 kg/m2 108/68 mm[Hg] 06/02/2017 Height Weight BMI Blood Pressure 5 ft 6.96 in 115.19 lbs 18.04 kg/m2 110/78 mm[Hg] 05/11/2016 Height Weight BMI Blood Pressure 5 ft 6.96 in 133.19 lbs 20.86 kg/m2 112/76 mm[Hg] 12/09/2015 Height Weight BMI Blood Pressure 5 ft 6.96 in 134 lbs 20.99 kg/m2 106/62 mm[Hg] 09/02/2015 Height Weight BMI Blood Pressure 5 ft 6.96 in 122 lbs 19.11 kg/m2 102/58 mm[Hg]
--- OUTSIDE RECORDS SUMMARY | 2022-07-20 13:21 | XMS_ITS | Encounter Summary ---
:1985 Author Organization [place] Address [address] [place] [address]. [place] [address] Care Team Providers Name Role Phone Maty Barrett MD Primary Care Provider Reason for Visit Reason Comments Hematuria micro Encounter Details Date Type Department Care Team Description 06/08/2017 Office Visit [facility] Elsie Peters Micros copic hematuria [facility] (Primary Dx) [address] [place], [place] [address] [place] [address] [phone] (Work) [phone] Social History Tobacco Use Types Packs/Day Years Used Date Smoking Tobacco: Never Smokeless Tobacco: Never Alcohol Use Standard Drinks/Week Comments No 0 (1 standard drink = 0.6 oz pure alcoho l) Sex Assigned at Date Recorded Not on file documented as of this encounter Last Filed Vital Signs Vital Sign Reading Time Taken Comments Blood Pressure - - Pulse 56 06/08/2017 3:41 PM CDT Temperature - - Respiratory Rate - - Oxygen Saturation 97% 06/08/2017 3:41 PM CDT Inhaled Oxygen Concentration - - Weight 52.2 kg (115 lb) 06/08/2017 3:41 PM CDT Height 167.6 cm (5' 6) 06/08/2017 3:41 PM CDT Body Mass Index 18.56 06/08/2017 3:41 PM CDT documented in this encounter Progress Notes Elsie Peters PA-C - 06/08/2017 3:30 PM CDT CC: Hematuria. HPI: It is a pleasure to see . Brittany Bess, a pleasant 32 year old female, asked to be seen in consultation by Dr. Newman for evaluation of hematuria. This was first detected at in December and again last week at her annual exam. (no Urine microanalyses) The patient denies any gross hematuria. Ms. Bess voids without difficulty, and reports nocturia of 0-1. She currently denies any dysuria, pyuria, hesitancy, intermittency, feelings of incomplete emptying, or any recent history of urinary tract infections or stones. Sometime experiences frequency, butnot all the time. Hematuria Risk Factors: Age >40: No Smoking history: Never Occupational exposure to chemicals or dyes (ie, benzenes, aromatic amines): no History of urologic disorder or disease: no History of irritative voiding symptoms: no History of urinary tract infection: no Analgesic abuse: no History of pelvic irradiation: no Past Medical History: Diagnosis Date ??? Spider veins ??? STD (sexually transmitted disease) Past Surgical History: Procedure Laterality Date ??? MANDIBLE SURGERY Bilateral Current Outpatient Prescriptions Medication Sig Dispense Refill ??? Cranberry 1000 MG CAPS ??? TRI-SPRINTEC 0.18/0.215/0.25 MG-35 MCG per tablet Take 0.25 mg by mouth daily 2 ??? ibuprofen (ADVIL,MOTRIN) 600 MG tablet Take [...] above in the HPI. PHYSICAL EXAM: Vitals: 06/08/17 1541 Pulse: 56 SpO2: 97% Weight: 52.2 kg (115 lb) [...] Final ??? Test Valid Only At 03/23/2016 [employer] Final ??? Specimen Expires 03/23/2016 03/26/2016 Final [...] renal disorder versus another yet unknown diagnosis. -Obtain [facility] title insurance examiner records Run U/A today and micro -Await results prior to proceeding to full work up. Determine if truly having microscopic hematuria. -Will call her with recs. Thank you for allowing me to participate in Ms. Bess's care. I will keep you updated of her progress, but please do not hesitate to contact me with any questions. Elsie Peters PA-C [facility] 20 minutes were spent with the patient today, > 50% in counseling and coordination of care. documented in this encounter Nursing Notes Shahnaz Amos CMA - 06/08/2017 3:30 PM CDT Sx of uti since January. But no uti. Pain in lower abd. No ua at this time. Belinda Amos CMA documented in this encounter Miscellaneous Notes Addendum Note - Shahnaz Amos CMA - 06/08/2017 4:33 PM CDT Addended by: SHAHNAZ AMOS on: 06/08/2017 04:33 PM Modules accepted: Orders Addendum Note - Shahnaz Amos CMA - 06/08/2017 4:32 PM CDT Addended by: SHAHNAZ AMOS on: 06/08/2017 04:32 PM Modules accepted: Orders documented in this encounter Plan of Treatment Not on filedocumented as of this encounter Procedures Procedure Name Priority Date/Time Associated Diagnosis Comme nts URINE MICRO UROLOGIC Routine 06/08/2017 4:33 PM Microscopic R esults for this PHYS CDT hematuria procedure are i n the results section. URINE CULTURE Routine 06/08/2017 4:29 PM Microscopic Results for this CDT hematuria procedure are i n the results section. URINE MACROSCOPIC Routine 06/08/2017 4:15 PM Microscopic Resu lts for this ONLY CDT hematuria procedure are i n the results section. documented in this encounter Results (ABNORMAL) Urine Micro Urologic Phys [[id number]] (06/08/2017 4:33 PM CDT) [facility] Method Time Signature WBC Urine <1 0 - 2 /HPF 06/08/2017 [place] 9:45 PM [facility] RBC Urine 1 0 - 2 /HPF 06/08/2017 [place] 9:45 PM T [facility] Mucous Urine Present (A) NEG^Negati 06/08/2017 [place] ve /LPF 9:45 PM [facility] Specimen Anatomical Collection Method Collection Time Receive d Time (Source) Location / / Volume Laterality Urine specimen 06/08/2017 4:33 PM 017 4:34 (specimen) CDT PM CDT Elsie Peters PA-C LAB - URINE ORDERABLES Performing Organization Address City/[facility] Phon e Number M [facility] [address] [address] [facility] [address] [phone] Urine Culture Aerobic Bacterial [[id number]] (06/08/2017 4:29 PM CDT) Component Value Ref Test Analysis Performed At [facility] Method Time Signature Specimen Midstream Urine MICRO RAPID Description TESTING LAB Special Specimen 06/08/2017 [facility] received in 8:33 PM CDT [facility] preservative [facility] Culture Micro No growth 06/09/2017 [place] 10:16 PM TESTING LAB CDT Specimen (Source) Anatomical Collection Method Collection Time Re ceived Time Location / / Volume Laterality Examination of 06/08/2017 4:29 06/08/2017 4:30 midstream urine PM CDT PM CDT specimen (procedure) Elsie Peters PA-C LAB - MICRO GENERAL ORDERABL ES Performing Organization Address City/State/ZIP Code Phon e Number MICRO RAPID TESTING LAB [address] [place] [address], [facility] (ABNORMAL) UA without Microscopic (06/08/2017 4:15 PM CDT) [facility] Method Time Signature Color Urine Yellow 06/08/2017 [facility] 4:19 PM CDT [facility] Appearance Urine Clear 06/08/2017 [facility] 4:19 PM CDT [facility] Glucose Urine Negative NEG^Negat 06/08/2017 [facility] evan mg/dL 4:19 PM CDT [facility] Bilirubin Urine Negative NEG^Negat 06/08/2017 [facility] evan 4:19 PM CDT [facility] Ketones Urine Negative NEG^Negat 06/08/2017 [facility] evan mg/dL 4:19 PM CDT [facility] Specific [place] 1.015 1.003 - 06/08/2017 [facility] Urine 1.035 4:19 PM CDT [facility] Blood Urine Small (A) NEG^Negat 06/08/2017 [facility] evan 4:19 PM CDT [facility] pH Urine 5.5 5.0 - 7.0 06/08/2017 [facility] pH 4:19 PM CDT [facility] Protein Albumin Negative NEG^Negat 06/08/2017 [facility] Urine evan mg/dL 4:19 PM CDT [facility] Urobilinogen 0.2 0.2 - 1.0 06/08/2017 [facility] Urine EU/dL 4:19 PM CDT [facility] Nitrite Urine Negative NEG^Negat 06/08/2017 [facility] evan 4:19 PM CDT [facility] Leukocyte Negative NEG^Negat 06/08/2017 [facility] Esterase Urine evan 4:19 PM CDT [facility] Source Midstream 06/08/2017 [facility] Urine 4:19 PM CDT [facility] Specimen (Source) Anatomical Collection Method Collection Time Re ceived Time Location / / Volume Laterality Examination of 06/08/2017 4:15 06/08/2017 4:16 midstream urine PM CDT PM CDT specimen (procedure) Elsie Peters PA-C LAB - URINE ORDERABLES Performing Organization Address City/State/ZIP Code Phon e Number [facility] [address] [place] [address] [facility] [address] documented in this encounter Visit Diagnoses Diagnosis Microscopic hematuria - Primary documented in this encounter Care Teams Internal Communications Manager Relationship Specialty Start Date End Date Maty Barrett MD PCP - General stock parts fabricator 06/08/17 [facility] CONSULT [address] [place] [address] documented as of this encounter
--- OUTSIDE RECORDS SUMMARY | 2022-07-20 13:21 | XMS_ITS | Encounter Summary ---
:1985 Author Organization [place] Address [address] [place] [address] Care Team Providers Name Role Phone Jackie Jarrell MD Primary Care Provider Reason for Visit (Routine) - Closed Specialty Diagnoses / Procedures Referred By Contact Refer red To Contact Radiology / Radiology. Diagnoses non epic order..sb Shannan..37 weeks..ok with Laura..read and call Rh Ultrasound Procedures US BPP WO NST SINGLE [address] [place] [address] Phone: Fax: Referral ID Status Reason Start Date Expiration Date Visits Requ ested Visits Authorized [id number] Closed 03/18/2016 03/18/2017 1 1 Encounter Details Date Type Department Care Team Description 03/19/2016 Hospital Encounter [facility] Max Sr MD affecting management [address] [facility] OBGYN of mother, [place], [place] CONSULTS trimester, fetus 1 [id number] [phone] [address] [place] [address] Social History Tobacco Use Types Packs/Day Years Used Date Smoking Tobacco: Never Assessed Sex Assigned at Date Recorded Not on file documented as of this encounter Plan of Treatment Not on filedocumented as of this encounter Procedures Procedure Name Priority Date/Time Associated Diagnosis Comme nts US OB BIOPHY STAT 03/19/2016 1:34 PM Small for dates Results for this PROFILE W/O NON CDT affecting management proc edure are in STRESS SINGLE of mother, third the result s trimester, fetus 1 section. documented in this encounter Results US OB Biophys Prf wo NonStrs Singls Sgl (03/19/2016 1:34 PM CDT) Anatomical Region Laterality Modality Abdomen/Pelvis Ultrasound Specimen (Source) Anatomical Location Collection Method / Collectio n Time Received Time / Laterality Volume Impressions 03/19/2016 2:43 PM CDT IMPRESSION: Total biophysical profile score is 8 out of 8. ??Amniotic fluid volume is at the 5th percentile. Findings called to the referring clinici an at the time of the exam by the dairy technologist, 1:30 PM on 03/19/2016. LOWELL HAIDER MD Narrative 03/19/2016 2:43 PM CDT ULTRASOUND OBSTETRIC BIOPHYSICAL PROFILE WITHOUT NONSTRESS TEST SINGLE ??03/19/2016 1:34 PM HISTORY: Small for dates affecting manag ement of mother, third trimester, fetus 1. COMPARISON: None. FINDINGS: breathing movements: ??2 out of 2. Gross body movement: ?? 2 out of 2. tone: ?2 out of 2. Amniotic fluid volume: ?2 out of 2. Presentation: Cephalic. heart rate: 156 bpm. Regular rhyth m. Placenta: Right fundal. JAX: 7.6 cm. This is at the 5th percenti le for gestational age of 37 weeks 2 days. Procedure Note Lowell Haider MD - 03/19/2016Form atting of this note might be different from the original. ULTRASOUND OBSTETRIC BIOPHYSICAL P ROFILE WITHOUT NONSTRESS TEST SINGLE 03/19/2016 1:34 PM HISTORY: Small for dates affecting manag ement of mother, third trimester, fetus 1. COMPARISON: None. FINDINGS: breathing movements: 2 out of 2. Gross body movement: 2 out of 2. tone: 2 out of 2. Amniotic fluid volume: 2 out of 2. Presentation: Cephalic. heart rate: 156 bpm. Regular rhyth m. Placenta: Right fundal. JAX: 7.6 cm. This is at the 5th percenti le for gestational age of 37 weeks 2 days. IMPRESSION: Total biophysical profile sc ore is 8 out of 8. Amniotic fluid volume is at the 5th percentile. Findings called to the referring clinici an at the time of the exam by the dairy technologist, 1:30 PM on 03/19/2016. LOWELL HAIDER MD Jackie Jarrell MD IMG US ORDERABLES documented in this encounter Visit Diagnoses Diagnosis Small for dates affecting management of mother, third trimester, fetus 1 documented in this encounter Care Teams Sheet Metal Duct Worker Supervisor Relationship Specialty Start Date End Date Jackie Jarrell MD PCP - General pediatric physiatrist 11/21/15 06/07/17 [facility] OBGYN CONSULTS [address] [place] [address] documented as of this encounter
--- OUTSIDE RECORDS SUMMARY | 2022-07-20 13:21 | XMS_ITS | Encounter Summary ---
:1985 Author Organization [place] Address [address] [place] [address] Care Team Providers Name Role Phone Jackie Jarrell MD Primary Care Provider Encounter Details Date Type Department Care Team Description 11/25/2015 Hospital Encounter [facility] Penny Barrett regnancy related Maternal Therese aJma MD condition, Medicine [facility] OB unspecified [place] FLOORING SALES MANAGER CONSULT trimester [address] [place] [address] Social History Tobacco Use Types Packs/Day Years Used Date Smoking Tobacco: Never Assessed Sex Assigned at Date Recorded Not on file documented as of this encounter Plan of Treatment Not on filedocumented as of this encounter Procedures Procedure Name Priority Date/Time Associated Comments Diagnosis [facility] US COMPREHENSIVE Routine 11/25/2015 8:38 AM rela dima Results for this SINGLE LAMP TESTER AND INSPECTOR condition, procedure are i n unspecified the results trimester section. documented in this encounter Results [facility] US Comprehensive Single (11/25/2015 8:38 AM LAMP TESTER AND INSPECTOR) Anatomical Region Laterality Modality Ultrasound Specimen (Source) Anatomical Collection Method Collection Time Re ceived Time Location / / Volume Laterality 11/25/2015 8:00 AM LAMP TESTER AND INSPECTOR Impressions 11/25/2015 11:41 AM LAMP TESTER AND INSPECTOR IMPRESSION 1) Intrauterine at 20 6/7 week s gestational age. 2) An echogenic focus is seen in the lef t cardiac ventricle. 3) None of the anomalies commonly detect ed by ultrasound were evident in the detailed anatomic survey described above. 4) Growth parameters and estimated weight were consistent with an appropriate for gestation age pattern of growth. 5) The amniotic fluid volume appeared no rmal. Narrative 11/25/2015 11:41 AM LAMP TESTER AND INSPECTOR Comprehensive Pat. Name: HARIKA BESS Study Date: 8:00am Pat. NO: [id number] Referring ??MD: BRAXTON MENDEZ Site: [facility] Geological Drafter: Dedra Abdi RDMS : 1985 Age: 30 INDICATION Echogenic Intracardiac Focus on outside US. METHOD Transabdominal ultrasound examination. S ufficient. Preciado . Number of fetuses: 1. DATING ? Date ?Details ?Gest. age ?GEE LMP ?07/02/2015 ? 20 w + 6 d ? 04/07/2016 U/S ? 11/25/2015 ? based upon AC, BPD, Femur, HC ? 20 w + 6 d ? 04/07/2016 Assigned dating ?Dating performed on 11/25/2015, based on the LMP ?20 w + 6 d ? 04/07/2016 GENERAL EVALUATION Cardiac activity: present. FHR 155 bpm. movements: visualized. Presentation: cephalic. Placenta: posterior, There is no evidenc e of placenta previa. Umbilical cord: 3 vessel cord. Amniotic fluid: Amount of AF: normal barry unt. MVP 4.3 cm. JAX 13.1 cm. Q1 3.4 cm, Q2 3.3 cm, Q3 4.3 cm, Q4 2.1 cm. BIOMETRY Main Biometry: BPD ? 48.7 ?mm ? 20w 5d ? Hadlock OFD ? 64.9 ?mm ? 20w 4d ? Nicolaides HC ?183.6 ?mm ?20w 5d ? Hadlock AC ?154.5 ?mm ?20w 4d ? Hadlock Femur ? 35.3 ?mm ?21w 1d ? Hadlock Cerebellum tr ? 21.6 ?mm ?20w 4d ? Nicolaides CM ? 4.8 ?mm ? Nuchal fold ?3.65 ?mm ? Humerus ? 32.8 ?mm ? 21w 0d ?Lester Weight Calculation: EFW ? 382 ? g ? EFW (lb,oz) ? 0 lb 13 ?oz Calculated by ?Hadlock ([id number]) Head / Face / Neck Biometry: Group Teacher ?6.6 ?mm ? Amniotic Fluid / FHR: AF MVP ?4.3 ? cm ? JAX ? 13.1 ?cm ? FHR ?155 ? bpm ? ANATOMY The following structures were visualized with normal appearance: Head ? Head size. Head shape. Brain ? Lateral cerebral ventricles. Cisterna magna. Midline falx. Choroid plexus. Thalami. Cavum septi pellucidi. Cerebellum. Face ? Profile. Orbits. Nose. Lips. Neck ? Nuchal fold. Spine ?Cervical spine. Thoracic spine. Lumbar spine. Sacral spine. Thorax ? Diaphragm: No apparent defect. Heart ? Four chamber view. Left ventricular outflow tract. Right ventricular outflow tract. Aortic arch view. Ductal arch view. Cardiac rhythm. Cardiac ? position. Cardiac size. Abdominal wall ? Umbilical cord insertion site. Stomach ?Stomach size and situs appear normal. GI tract ?Liver: Situs normal. Bowel: No hyperechogenic bowel. Kidneys ? Kidneys appear normal bilaterally. Bladder ?Bladder appears normal in size and shape. Upper extrem. ?Both upper extremities are seen and appear normal. Lower extrem. ?Both lower extremities are seen and appear normal. Gender: female. MATERNAL STRUCTURES Cervix ?Visualized, Appears Closed. Right Ovary ?Not visualized. Left Ovary ?Not visualized. RECOMMENDATION We discussed the findings on today's ult rasound with the patient. We reviewed that an EIF is seen on US to day and that this does appear to be an isolated finding and that an isolated EIF in a woman less than 35 is considered an incidental finding that does not signifi cantly increase the risk for aneuploidy. Because there is no association of EIF with structural cardiac disease, further evaluation of EIF is not necessary either prenatall y or postnatally. Alternatives available for detecting fet al anomalies, aneuploidy and predicting developmental outcome for this were thoroughly discussed. The risks, benefits and limitations of maternal serum screening, cell-free DNA screening (verifi), ultrasound and genetic amniocentesis were thoroughly reviewed with the patient. We discussed the availability of amniocentesis for the pr ecise diagnosis of chromosomal abnormalities including the associated procedure-related risk of loss of 1/300 ? 1/500. The patient declined all further aneuploidy screening and diagnostic tests. Further ultrasound studies as clinically indicated. Return to primary provider for continued care. Thank you for the opportunity to partici osborn in the care of this patient. If you have questions regarding today's evaluation or if we can be of further service, please contact the [facility]. anomalies may be present but not detected. Procedure Note Juan M Palumbo MD - 11/25/2015Formatt ing of this note might be different from the original. Comprehensive Pat. Name:Darrian BESS Date:2015 8:00am Pat. NO: [id number] MD:THERESE MENDEZ [facility] RDMS :1985Age:30 INDICATION Echogenic Intracardiac Focus on outside US. METHOD Transabdominal ultrasound examination. S ufficient. Preciado . Number of fetuses: 1. DATING Date Details Gest. age GEE LMP 07/02/2015 20 w + 6 d 04/07/2016 U/S 11/25/2015 based upon AC, BPD, Femur, HC 20 w + 6 d 04/07/2016 Assigned dating Dating performed on 11/25, based on the LMP 20 w + 6 d 04/07/2016 GENERAL EVALUATION Cardiac activity: present. FHR 155 bpm. movements: visualized. Presentation: cephalic. Placenta: posterior, There is no evidenc e of placenta previa. Umbilical cord: 3 vessel cord. Amniotic fluid: Amount of AF: normal barry unt. MVP 4.3 cm. JAX 13.1 cm. Q1 3.4 cm, Q2 3.3 cm, Q3 4.3 cm, Q4 2.1 cm. BIOMETRY Main Biometry: BPD 48.7 mm 20w 5d Hadlock OFD 64.9 mm 20w 4d Nicolaides HC 183.6 mm 20w 5d Hadlock AC 154.5 mm 20w 4d Hadlock Femur 35.3 mm 21w 1d Hadlock Cerebellum tr 21.6 mm 20w 4d Nicolaides CM 4.8 mm Nuchal fold 3.65 mm Humerus 32.8 mm 21w 0d Lester Weight Calculation: EFW 382 g EFW (lb,oz) 0 lb 13 oz Calculated by Evon ([id number]) Head / Face / Neck Biometry: Group Teacher 6.6 mm Amniotic Fluid / FHR: AF MVP 4.3 cm JAX 13.1 cm FHR 155 bpm ANATOMY The following structures were visualized with normal appearance: Head Head size. Head shape. Brain Lateral cerebral ventricles. Ciste rna magna. Midline falx. Choroid plexus. Thalami. Cavum septi pellucidi. Cerebellum. Face Profile. Orbits. Nose. Lips. Neck Nuchal fold. Spine Cervical spine. Thoracic spine. Swetha mbar spine. Sacral spine. Thorax Diaphragm: No apparent defect. Heart Four chamber view. Left ventricula r outflow tract. Right ventricular outflow tract. Aortic arch view. Ductal arch view. Cardiac rhythm. Cardiac position. Cardiac size. Abdominal wall Umbilical cord insertion site. Stomach Stomach size and situs appear no rmal. GI tract Liver: Situs normal. Bowel: No hyperechogenic bowel. Kidneys Kidneys appear normal bilaterall y. Bladder Bladder appears normal in size a nd shape. Upper extrem. Both upper extremities are seen and appear normal. Lower extrem. Both lower extremities are seen and appear normal. Gender: female. MATERNAL STRUCTURES Cervix Visualized, Appears Closed. Right Ovary Not visualized. Left Ovary Not visualized. RECOMMENDATION We discussed the findings on today's [facility] with the patient. We reviewed that an EIF is seen on US to day and that this does appear to be an isolated finding and that an isolated EIF in a woman less than 35 is considered an incidental finding that does not signifi cantly increase the risk for aneuploidy. Because there is no association of EIF with structural cardiac disease, further evaluation of EIF is not necessary either prenatall y or postnatally. Alternatives available for detecting fet al anomalies, aneuploidy and predicting developmental outcome for this were thoroughly discussed. The risks, benefits and limitations of maternal serum screening, cell-free DNA screening (verifi), ultrasound and genetic amniocentesis were thoroughly reviewed with the patient. We discussed the availability of amniocentesis for the pr ecise diagnosis of chromosomal abnormalities including the associated procedure-related risk of loss of 1/300 ? 1500. The patient declined all further aneuploidy screening and diagnostic tests. Further ultrasound studies as clinically indicated. Return to primary provider for continued care. Thank you for the opportunity to partici anurag in the care of this patient. If you have questions regarding today's evaluation or if we can be of further service, please contact the [facility]. anomalies may be present but not detected. IMPRESSION 1) Intrauterine at 20 6/7 week s gestational age. 2) An echogenic focus is seen in the lef t cardiac ventricle. 3) None of the anomalies commonly detect ed by ultrasound were evident in the detailed anatomic survey described above. 4) Growth parameters and estimated weight were consistent with an appropriate for gestation age pattern of growth. 5) The amniotic fluid volume appeared no rmal. Therese Mendez MD [facility] US ORDERABLES documented in this encounter Visit Diagnoses Diagnosis related condition, unspecified trimester documented in this encounter Care Teams Electric Motor Tester Assembler Relationship Specialty Start Date End Date Jackie Jarrell MD PCP - General time study analyst 11/21/15 [facility] [address] [place], [place] [address] documented as of this encounter
--- OUTSIDE RECORDS SUMMARY | 2022-07-20 13:21 | XMS_ITS | Encounter Summary ---
:1985 Author Organization [place] Address [facility] [place] [address] Care Team Providers Name Role Phone Maty Barrett MD Primary Care Provider [phone] Reason for Visit Reason Onset Date Comments Results 07/19/2017 Encounter Details Date Type Department Care Team Description 07/19/2017 Telephone [facility] Urology Elsie Peters PA-C Results Clinic Sarah [address] [place] [address] [place] [address] [phone] Social History Tobacco Use Types Packs/Day Years Used Date Smoking Tobacco: Never Smokeless Tobacco: Never Alcohol Use Standard Drinks/Week Comments No 0 (1 standard drink = 0.6 oz pure alcoho l) Sex Assigned at Date Recorded Not on file documented as of this encounter Miscellaneous Notes Telephone Encounter - Tami Bernstein LPN - 07/19/2017 10:31 AM CDT Triage Phone Call: Patient called and LM on nurse line. She would like to switch her RX from Tolterodine to a cheaper alternative. LM for patient and will wait for return phone call. Tami Bernstein LPN documented in this encounter Plan of Treatment Not on filedocumented as of this encounter Visit Diagnoses Diagnosis Urinary frequency - Primary documented in this encounter Care Teams Public Information Relations Manager Relationship Specialty Start Date End Date Maty Barrett MD PCP - General fire management technician 06/08/17 [facility] OFFICE MACHINES WIRER CONSULT [address] [id number] documented as of this encounter
--- OUTSIDE RECORDS SUMMARY | 2022-07-20 13:21 | XMS_ITS | Encounter Summary ---
:1985 Author Organization [place] Address [address] [facility] [place] [address] Care Team Providers Name Role Phone Jackie Jarrell MD Primary Care Provider Reason for Visit Reason Comments Ultrasound L2: EIF Encounter Details Date Type Department Care Team Description 11/25[facility]2015 [facility] CROWD CONTROLLER CONSULT [address] [facility] [address] [place] [address] Echogenic intracardiac Maternal Juan M Palumbo MD [address] [facility] [address] [place] [address] focus of fetus on Medicine Center t [facility] (Primary Dx) [address] [place] [address] Social History Tobacco Use Types Packs/Day Years Used Date Smoking Tobacco: Never Assessed Sex Assigned at Date Recorded Not on file documented as of this encounter Progress Notes Juan M Palumbo MD - 11/25/2015 11:41 AM CST Please see Imaging tab under Chart Review for details of today's US. Juan M Palumbo SEAL OPERATOR documented in this encounter Plan of Treatment Not on filedocumented as of this encounter Visit Diagnoses Diagnosis Echogenic intracardiac focus of fetus on ultrasound - Primary documented in this encounter Care Teams Metabolic Specialist Relationship Specialty Start Date End Date Jackie Jarrell MD PCP - General gunner's mate g 11/21/15 06/07/17 [facility]BGYN CONSULTS [address] [facility] [address] [place] [address] documented as of this encounter
--- OUTSIDE RECORDS SUMMARY | 2022-07-20 13:21 | XMS_ITS | Encounter Summary ---
:1985 Author Organization [place] Address [facility] [place] [address] Care Team Providers Name Role Phone Maty Barrett MD Primary Care Provider [phone] Reason for Visit Reason Onset Date Comments Medication Request 06/23/2017 Encounter Details Date Type Department Care Team Description 06/23/2017 Telephone [facility] Urology Elsie Peters , Medication Request Clinic Sarah [place] [address] [place] [address] [place] [address] [phone] (Wo rk) Social History Tobacco Use Types Packs/Day Years Used Date Smoking Tobacco: Never Smokeless Tobacco: Never Alcohol Use Standard Drinks/Week Comments No 0 (1 standard drink = 0.6 oz pure alcoho l) Sex Assigned at Date Recorded Not on file documented as of this encounter Miscellaneous Notes Telephone Encounter - Tami Bernstein LPN - 06/27/2017 8:25 AM CDT Patient called in regards to dietary recommendations for urinary frequency. She was recommended to avoid fruit juice, acidic foods, spicy food, alcohol and caffeine. Per PA patient may take Detrol 4mg one pill daily and was sent in for 90 days with 3 refills to preferred pharmacy. Tami Bernstein LPN documented in this encounter Plan of Treatment Not on filedocumented as of this encounter Visit Diagnoses Diagnosis Urinary frequency - Primary documented in this encounter Care Teams Mail Officer Relationship Specialty Start Date End Date Maty Barrett MD PCP - General busboy 06/08/17 [facility] EVALUATION ENGINEER CONSULT [address] [facility] [address] [place] [phone] documented as of this encounter
--- OUTSIDE RECORDS SUMMARY | 2022-07-20 13:21 | XMS_ITS | Encounter Summary ---
:1985 Author Organization [place] Address [address] [place] [address] Care Team Providers Name Role Phone Jackie Jarrell MD Primary Care Provider Maty Barrett MD Primary Care Provider [phone] Reason for Visit Reason Comments Ultrasound EIF Encounter Details Date Type Department Care Team Description 11/21/2015 PRE VISIT [facility] Maternal Esther Perez, Ultrasound (EIF) Medicine Center RN [place] [address] [facility] [address] [place] [address] Social History Tobacco Use Types Packs/Day Years Used Date Smoking Tobacco: Never Assessed Sex Assigned at Date Recorded Not on file documented as of this encounter Plan of Treatment Not on filedocumented as of this encounter Visit Diagnoses Not on filedocumented in this encounter Care Teams Dice Manager Relationship Specialty Start Date End Date Jackie Jarrell MD PCP - General nurse discharge planner 11/21/15 06/07/17 [facility] OBGYN CONSULTS [address] [facility] [address] [place] [address] Maty Barrett MD PCP - General nurse discharge planner 06/08/17 [facility] RENTAL AGENT CONSULT [address] [place] [phone] documented as of this encounter
--- OUTSIDE RECORDS SUMMARY | 2022-07-20 13:21 | XMS_ITS | Encounter Summary ---
:1985 Author Organization [place] Address [address] [place] [address]. [place] [address] Care Team Providers Name Role Phone Jackie Jarrell MD Primary Care Provider Reason for Visit Auth/Cert Specialty Diagnoses / Procedures Referred By Contact Refer red To Contact smelting engineer Diagnoses Indication for care in labor or delivery [facility] [address] [phone] Phone: Referral ID Status Reason Start Date Expiration Date Visits Requ ested Visits Authorized [id number] 03/24/2016 03/24/2017 1 1 Encounter Details Date Type Department Care Team Description 03/24/2016 Anesthesia Event [facility] Bell Corbett [facility] [address] [place] [phone] [address] [phone] [facility] [place] [id number] Anesthesia Record Procedure Summary Procedure Name Responsible Anesthesia Start Time Anesthesia Stop Time Anesthesiologist LABOR ANALGESIA Bell Corbett Events Date Time Event Comment 03/24/2016 1131 AN TIME IN 1150 Vitals doc by Nurse 1150 AN TIME OUT Name Total lidocaine-EPINEPHrine 1.5 %-1:072273 injection 3 mL 3 mL ROPivacaine (NAROPIN) injection 10 mL 10 mL FentaNYL Citrate (PF) (SUBLIMAZE) 100 MCG/2ML injectio n 100 mcg Agents No agents on file. Blood No blood administrations on file. Lines, Drains, and Airways Type Details Placement Removal Intrathecal/Epidural 03/24/16; 1125; 03/24/16 1125 by Thyr, 03/10 02/22 1600 by Catheter Epidural Madison Mast RN documented in this encounter Social History Tobacco Use Types Packs/Day Years Used Date Smoking Tobacco: Never Assessed Alcohol Use Standard Drinks/Week Comments No 0 (1 standard drink = 0.6 oz pure alcoho l) Sex Assigned at Date Recorded Not on file documented as of this encounter OR Notes Anesthesia Postprocedure Evaluation - Robinson Elizabeth MD - 03/25/2016 5:12 PM CDT Patient: Brittany Bess LABOR EPIDURAL Additional Information* No procedures listed * Diagnosis:* No pre-op diagnosis entered * Diagnosis Additional Information: No value filed. Anesthesia Type: No value filed. Note: Anesthesia Post Evaluation Patient location during evaluation: floor Patient participation: Able to fully participate in evaluation Level of consciousness: awake and alert Pain management: adequate Airway patency: patent Anesthetic complications: no Cardiovascular status: acceptable Respiratory status: acceptable Comments: Epidural has worn off and no complications Last vitals: Filed Vitals: 03/25/16 0200 03/25/16 0748 03/25/16 1550 BP: 106/61 109/68 114/73 Pulse: 52 65 67 Temp: 36.5 ??C (97.7 ??F) 36.3 ??C (97.4 ??F) 36.6 ??C (97.8 ??F) Resp: 16 16 16 SpO2: Electronically Signed By: Robinson Elizabeth MD March 25, 2016 5:12 PM Anesthesia Preprocedure Evaluation - Bell Corbett - 03/24/2016 3:40 PM CDT Anesthesia Plan ASA Score: . OB EPIDURAL ASA:2 Plan for epidural - Anesthetic plan, risks, benefits and alternatives discussed with: patient. . History & Physical Review . Anesthesia Procedure Notes - Bell Corbett - 03/24/2016 3:38 PM CDTAssociated Order(s): ANE EPIDURAL BLOCK Peripheral nerve/Neuraxial procedure note : epidural catheter Pre-Procedure Performed by BELL CORBETT Location: OB Pre-Anesthestic Checklist: patient identified, IV checked, risks and benefits discussed, informed consent and pre-op evaluation Timeout Correct Patient: Yes Correct Procedure: Yes Correct Site: Yes Correct Laterality: N/A Correct Position: Yes Site Marked: N/A . Procedure Documentation . Procedure: Epidural catheter. Insertion Site:L3-4 (midline approach) Injection technique: LORT saline Local skin infiltrated with mL of 1% lidocaine. Patient Prep;mask, sterile gloves, povidone-iodine 7.5% surgical scrub, patient draped. . Needle: Touhy needle (17 G. 3.5 in). # of attempts: 1. # of redirects:. Spinal Needle: . . . . . . Catheter threaded easily at the skin and 5 cm in the epidural space. Assessment/Narrative Paresthesias: No. . . Aspiration negative for heme or CSF . Test dose of 3 mL lidocaine 1.5% w/ 1:200,000 epinephrine at. Test dose negative for signs of intravascular, subdural or intrathecal injection. Comments: 10cc 0.2% ropivicaine, 100 mcg fentanyl documented in this encounter Plan of Treatment Not on filedocumented as of this encounter Procedures Procedure Name Priority Date/Time Associated Diagnosis Comme nts ANE EPIDURAL BLOCK Routine 03/24/2016 3:39 PM Res ults for this CDT procedure are i n the results section. documented in this encounter Results Epidural Block (03/24/2016 3:39 PM CDT) Narrative Bell Corbett - 03/24/2016 3:39 PM CDT Bell Corbett ? 03/24/2016 ??3:39 PM Peripheral nerve/Neuraxial procedure not e : epidural catheter Pre-Procedure Performed by BELL CORBETT Location: OB ?? Pre-Anesthestic Checklist: patient ident ified, IV checked, risks and benefits discussed, informed consent and pre-op evaluation ?? Timeout Correct Patient: Yes Correct Procedure: Yes Correct Site: Yes Correct Laterality: N/A Correct Position: Yes Site Marked: N/A . Procedure Documentation . ?? Procedure: ?Epidural catheter. ??Ins ertion Site:L3-4 ??(midline approach) Injection technique: LORT sali ne ?? Local skin infiltrated with mL of 1% lidocaine. ?? Patient Prep;mask, sterile gloves, povid one-iodine 7.5% surgical scrub, patient draped. ??. ??Needle: Shay hy needle (17 G. 3.5 in). # of attempts: 1. # of redirects:. ??Spina l Needle: . . . . ??. ??. ?? Catheter threaded easily at the skin and 5 cm in the epidural space. ?? Assessment/Narrative Paresthesias: No. ??. ??. ??Aspiration n egative for heme or CSF ??. Test dose of 3 mL lidocaine 1.5% w/ 1:20 0,000 epinephrine at. Test dose negative for signs of intravas cular, subdural or intrathecal injection. Comments: ??10cc 0.2% ropivicaine, 100 mcg fentanyl Bell Sw[place] ANESTHESIA documented in this encounter Visit Diagnoses Not on filedocumented in this encounter Administered Medications Inactive Administered Medications - up to 3 most recent administrations Medication Order MAR Action Action Date Dose Rate Site FentaNYL Citrate (PF) Given 03/24/2016 11:43 AM CDT 100 mcg (SUBLIMAZE) 100 MCG/2ML injection Starting on Tue03/24/16 at 1128, For 1 dose, Odette Wen: cabinet override lidocaine-EPINEPHrine 1.5 %-1:197750 Given 03/24/2016 11:40 AM C DT 3 mLs injection 3 mL 3 mL, EPIDURAL, ONCE PRN, test dose, Starting on Tue03/24/16 at 1126, For 1 dose, given by Anesthesia Provider with epidural catheter insertion ROPivacaine (NAROPIN) injection 10 mL Given 03/24/2016 11:43 AM CDT 10 mLs 10 mL, EPIDURAL, ONCE, On Tue03/24/16 at 1130, For 1 dose, given by Anesthesia Provider only 10 mL = 20 mg documented in this encounter Care Teams Banjo Repair Person Relationship Specialty Start Date End Date Jackie Jarrell MD PCP - General smelting engineer 2/12/16 8/29/17 [facility] [address] [facility] [address] [place] [address] documented as of this encounter
--- OUTSIDE RECORDS SUMMARY | 2022-07-20 13:21 | XMS_ITS | Encounter Summary ---
:1985 Author Organization [place] Address [facility] [place] [address] Care Team Providers Name Role Phone Maty Barrett MD Primary Care Provider Encounter Details Date Type Department Care Team Description 06/08/2017 Orders Only [facility] Elsie Peters Micros copic hematuria [facility] Janine VILLEDA (Primary Dx) [address] [place] [address] [address] [place] [id number] Social History Tobacco Use Types Packs/Day Years Used Date Smoking Tobacco: Never Smokeless Tobacco: Never Alcohol Use Standard Drinks/Week Comments No 0 (1 standard drink = 0.6 oz pure alcoho l) Sex Assigned at Date Recorded Not on file documented as of this encounter Plan of Treatment Scheduled Orders Name Type Priority Associated Diagnoses Order S chedule Urine Micro Urologic Lab Routine Microscopic hematuri a Ordered: 06/08/2017 Phys Urine Culture Aerobic Microbiology Routine Microscopic hematur ia Ordered: 06/08/2017 Bacterial documented as of this encounter Visit Diagnoses Diagnosis Microscopic hematuria - Primary documented in this encounter Care Teams Pin Sticker Relationship Specialty Start Date End Date Maty Barrett MD PCP - General valve and regulator repairer 06/08/17 [facility] NURSE INTERN CONSULT [address] [place] [address] [place] [address] documented as of this encounter
--- OUTSIDE RECORDS SUMMARY | 2022-07-20 13:21 | XMS_ITS | Encounter Summary ---
:1985 Author Organization [facility] Address [address] [place] [address]. [place] [address] Care Team Providers Name Role Phone Jackie Jarrell MD Primary Care Provider Reason for Referral Specialty Diagnoses / Procedures Referred By Contact Refer red To Contact Hector Yi DO [facility] [address] [place] [address] Referral ID Status Reason Start Date Expiration Date Visits Requ ested Visits Authorized Reason for Visit Auth/Cert Specialty Diagnoses / Procedures Referred By Contact Refer red To Contact recreation leader Diagnoses Indication for care in labor or delivery [facility] [address] [place] [address] Phone: Referral ID Status Reason Start Date Expiration Date Visits Requ ested Visits Authorized [id number] 03/24/2016 03/24/2017 1 1 Encounter Details Date Type Department Care Team Description 03/23/2016 - Hospital Encounter [facility] Jocelyn Jarrell MD [facility] [address] [place], [place] [id number] (spontaneous 03/26/2016 Maty Marshall MD [facility] [address] [place] [id number] vaginal delivery) Birthplace (Primary Dx) [address], [address] [place] [phone] Social History Tobacco Use Types Packs/Day Years Used Date Smoking Tobacco: Never Assessed Alcohol Use Standard Drinks/Week Comments No 0 (1 standard drink = 0.6 oz pure alcoho l) Sex Assigned at Date Recorded Not on file documented as of this encounter Last Filed Vital Signs Vital Sign Reading Time Taken Comments Blood Pressure 103/61 03/26/2016 7:31 AM CDT Pulse 68 03/26/2016 7:31 AM CDT Temperature 36.6 ??C (97.8 ??F) 03/26/2016 7:31 AM CDT Respiratory Rate 16 03/26/2016 7:31 AM CDT Oxygen Saturation 99% 03/24/2016 3:25 PM CDT Inhaled Oxygen Concentration - - Weight 69.4 kg (153 lb) 03/23/2016 9:35 PM CDT Height 167.6 cm (5' 6) 03/23/2016 9:35 PM CDT Body Mass Index 24.69 03/23/2016 9:35 PM CDT documented in this encounter Discharge Instructions Discharge Jeovany Samuels, RN - 03/26/2016 10:38 AM CDT Vaginal Delivery Instructions Activity ?? Ask family and friends for [...] Sig Dispensed Refills Start Date End Date ibuprofen (ADVIL,MOTRIN) Take 1 tablet (600 0 600 MG tabletIndications: mg) by mouth every (spontaneous vaginal 6 hours as needed delivery) for other (cramping) polyethylene glycol Take 17 g (1 510 g 1 03/26/201609/2018 (MIRALAX) capful) by mouth powderIndications: daily (spontaneous vaginal delivery) Vit-Fe Take 1 tablet by 0 09/2018 Fumarate-FA ( mouth daily MULTIVITAMIN PLUS IRON) 27-0.8 MG TABS documented as of this encounter Progress Notes Hector Yi MD - 03/26/2016 8:16 AM CDT OB Post- Note PPD# 2 S: Patient doing well. Pain controlled. Voiding. Bleeding normal. Breast feeding. O: BP 103/61 mmHg Pulse 68 Temp(Src) 97.8 ??F (36.6 ??C) (Oral) Resp 16 Ht 1.676 m (5' 6) Wt 69.4 kg (153 lb) BMI 24.71 kg/m2 SpO2 99% LMP 07/02/2015 ? Unknown Gen- A&O, NAD Abd- Non-tender, fundus firm at umbilicus Ext- non-tender, no edema HEMOGLOBIN Date Value Ref Range Status 03/25/2016 10.6* 11.7 - 15.7 g/dL Final A+ Rubella Immune A/P: 30 year old PPD# 2 s/p 1. Routine post- cares. 2. D/c home today Hector Yi DO March 26, 2016 [phone] Alka aPck MD - 03/25/2016 9:21 AM CDT OB Post- Note PPD# 1 S: Patient doing well. Pain controlled. Voiding. Bleeding normal. Breast feeding. O: BP 109/68 mmHg Pulse 65 Temp(Src) 97.4 ??F (36.3 ??C) (Oral) Resp 16 Ht 1.676 m (5' 6) Wt 69.4 kg (153 lb) BMI 24.71 kg/m2 SpO2 99% LMP 07/02/2015 ? Unknown Gen- A&O, NAD Abd- Non-tender, fundus firm at umbilicus Ext- non-tender, no edema HEMOGLOBIN Date Value Ref Range Status 03/23/2016 12.0 11.7 - 15.7 g/dL Final A+ Rubella Immune A/P: 30 year old PPD# 1 s/p 1. Routine post- cares. 2. Anticipate d/c home on PPD# 2. Alka Pack MD 03/25/2016 9:21 AM documented in this encounter H&P Notes Maty Barrett MD - 03/24/2016 8:41 AM CDT OB Brief Admit H&P No significant change in general health status based on examination of the patient, review of Nursing Admission Database and record. Pt is a 30 year old @ 38w0d who presented to L&D last night for cervical ripening for IOL for oligohydramnios. Cervidil removed at 0725 and pitocin started at 0830, now at 2mu/min. Patient's course has been significant for SGA and weekly BPP. BPP yesterday 05/17 with JAX 3.6cm Labs: Blood type A pos Rubella inmune [id number] GBS negative EFW: 6.5# BP 109/57 mmHg Pulse 85 Temp(Src) 98.6 ??F (37 ??C) (Temporal) Resp 16 Ht 1.676 m (5' 6) Wt 69.4 kg (153 lb) BMI 24.71 kg/m2 LMP 07/02/2015 EFM: 150, moderate variability, accelerations present, no decelerations Zemple: 3-5min SVE: 1-2/75%/-1vertex Membranes: AROM, clear Labs: Results for orders placed or performed during the hospital encounter of 03/23/16 (from the past 24 hour(s)) CBC with platelets differential Result Value Ref Range WBC 12.1 (H) 4.0 - 11.0 10e9/L RBC Count 3.81 3.8 - 5.2 10e12/L Hemoglobin 12.0 11.7 - 15.7 g/dL Hematocrit 34.7 (L) 35.0 - 47.0 % MCV 91 78 - 100 fl MCH 31.5 26.5 - 33.0 pg MCHC 34.6 31.5 - 36.5 g/dL RDW 13.7 10.0 - 15.0 % Platelet Count 213 150 - 450 10e9/L Diff Method Automated Method % Neutrophils 75.6 % % Lymphocytes 12.9 % % Monocytes 7.5 % % Eosinophils 0.5 % % Basophils 0.2 % % Immature Granulocytes 3.3 % Nucleated RBCs 0 0 /100 Absolute Neutrophil 9.2 (H) 1.6 - 8.3 10e9/L Absolute Lymphocytes 1.6 0.8 - 5.3 10e9/L Absolute Monocytes 0.9 0.0 - 1.3 10e9/L Absolute Eosinophils 0.1 0.0 - 0.7 10e9/L Absolute Basophils 0.0 0.0 - 0.2 10e9/L Abs Immature Granulocytes 0.4 0 - 0.4 10e9/L Absolute Nucleated RBC 0.0 ABO/Rh type and screen Result Value Ref Range ABO A RH(D) Pos Antibody Screen Neg Test Valid Only At [facility] Specimen Expires 03/26/2016 Meds: ??? sodium chloride (PF) 3 mL Intracatheter Q8H ??? dinoprostone Vaginal Once Assessment: 30 year old @ 38w0d admitted for IOL/cervical ripening for oligohydramnios Plan: 1. Admit to labor and delivery 2. Pitocin induction of labor 3. Epidural prn Maty Copeland MD 03/24/2016 documented in this encounter Miscellaneous Notes Plan of Domenico - Jeovany Montanez RN - 03/26/2016 10:37 AM CDT Problem: Goal Outcome Summary Goal: Goal Outcome Summary Outcome: Adequate for Discharge Date Met: 03/26/16 Ready for discharge home. Education complete. Note - Lizz Le RN - 03/26/2016 9:47 AM CDT Follow up visit. sleepy overnight. Pt started pumping, getting small amount of colostrum and finger feeding it to baby after feeding. Using shield for feedings and occasionally can get tolatch without. Reviewed outpatient resources with pt. Lizz Le RN, IBCLC Plan of Domenico - Madison Barth RN - 03/26/2016 6:33 AM CDT Problem: Goal Outcome Summary Goal: Goal Outcome Summary Outcome: No Change The pt continues working on with the shield, is independent with positioning, and latch verified. She's been performing skin to skin stimulation and started pumping overnight, as her daughter is very sleepy at the breast (no colostrum). DC expected in the AM Plan of Care - Lizz Le RN - 03/25/2016 6:38 PM CDT Problem: Goal Outcome Summary Goal: Goal Outcome Summary Outcome: No Change Pt doing well. Pain controlled. Up independently in room. Working on feedings. Plan of Care - Neri Mccall RN - 03/25/2016 12:56 PM CDT Problem: Goal Outcome Summary Goal: Goal Outcome Summary Outcome: Improving Patient up independently in room, VSS, pain well controlled, breast feeding using nipple shield, using ice packs and tucks on perineum. Independent with cares. Continue to monitor. Note - Lziz Le RN - 03/25/2016 10:43 AM CDT Initial visit. Hand out given. Recommend unlimited, frequent breast feedings: At least 8 -12 times every 24 hours. Avoid pacifiers and supplementation with formula unless medically indicated. Explained benefits of holding baby skin on skin to help promote better outcomes. Og ch pt with feeding. struggling to latch. Slips of easily. Nipples are flatter and breast tissue is firm. Shield introduced and latched well. Slightly uncoordinated suck. Colostrum was seen in shield. Will revisit as needed. Lizz Le RN, IBCLC Plan of Care - Olya Hutchinson RN - 03/25/2016 3:56 AM CDT Problem: Goal Outcome Summary Goal: Goal Outcome Summary Outcome: No Change Data: Vital signs within normal limits. checks within normal limits - see flow record. Patient eating and drinking normally. Patient able to empty bladder independently and is up ambulating.No apparent signs of infection. perineum healing well. Patient performing self cares and is able to care for . Action: Patient medicated during the shift for pain. See MAR. Patient reassessed within 1 hour aftereach medication and pain was improved - patient stated she was comfortable. Patient education done about . See flow record. Response: Positive attachment behaviors observed with infant. Support persons is present. Plan: Anticipate discharge on 03/26. Plan of Care - Jasmin Gomez RN - 03/24/2016 10:47 PM CDT Problem: Goal Outcome Summary Goal: Goal Outcome Summary Outcome: Improving Vital signs stable. Tolerating diet. She is voiding and IV is out. Bonding with baby and trying different positions. She is up with one Stand By Assist - she is still feeling shaky. is very supportive. All questions answered. Plan of Care - Odette Wen RN - 03/24/2016 6:00 PM CDT Data: Brittany Bess transferred to [facility] via wheelchair at 1745. Baby transferred via parent's arms. Action: Receiving unit notified of transfer: Yes. Patient and family notified of room change. Reportgiven to Jasmin SMITH at 1745. Belongings sent to receiving unit. Accompanied by Registered Nurse. Oriented patient to surroundings. Call light within reach. ID bands double-checked with receiving RN. Response: Patient tolerated transfer and is stable. L&D Delivery Note - Maty Barrett MD - 03/24/2016 4:47 PM CDT OB Vaginal Delivery Note HPI: Pt is a 30 year old @ 38w0d who presented to L&D on 03/23/16 for cervidil/IOL for oligohydramnios. labs: A antibody screen: negative, Rubella inmune, Hep B/HIV/RPR all negative, GC/CT negative, GBS neg complications: oligohydramnios Hospital Course: First Stage: On admission, contractions were every irreg and patient was FT dilated. FHTs were in the 150 with accelerations present. moderate variability, no decelerations noted. Abdomen was non-tender. EFW was 6,5# by Avel's. Patient received cervidil for cervical ripening overnight and removed at 0725 03/24/16. Pitocin started at 0830. At the patient's request, she received epidural analgesia. She received pitocin for induction of labor, to a maximum of 12mu/min. AROM occurred at 0904 with clear fluid noted. Patient reached complete cervical dilation at 1436 on 03/24/2016. Second Stage: Patient did not labor down , and began pushing at 1438. Good maternal expulsive efforts were noted. heart tones remained reassuring during the second stage. Baseline 140, with moderate variability, no decelerations noted. She was able to bring the vertex to a full crown. The vertex was then easily delivered, followed by the shoulders without complications. A nuchal cord was not present. A female infant was then delivered without complications at 1525 on 03/24/2016. The mouth and nares were bulb suctioned. The cord was clamped after it had stopped pulsating, cut and the was placed on maternal chest. The 's weight was 6 pounds 5 ounces. Apgars were 9and 9 at one and five minutes . Third Stage: The placenta then delivered at 1541 . It was noted to be intact with a three vessel cord. The patient's perineum was inspected and midline episiotomy had no extensions . The area was infiltrated with 1% lidocaine and repaired in the usual fashion using 3-0 vicryl suture. EBL for the procedure was 350cc. Sponge and needle counts were correct. The patient and infant remained in the delivery suite following delivery in stable condition. Maty Copeland MD 03/24/2016 4:47 PM Plan of Care - Odette Wen Amauri, RN - 03/24/2016 7:45 AM CDT 0715 - Report received from Antonia Covington RN will assume care of patient at this time. 0722 - Dr. Jarrell on phone and orders received to remove cervidil at this time and start pitocin in one hour. Dr. Newman will be doing morning rounds and will be by to see patient. 0725 - Cervidil removed at this time. Patient trying to rest, but states she is having a lot of backpain. Patient plans to order light breakfast. Plan of care discussed with patient and questions answered at this time. 0828 - SVE 2 (tight)/75/-1. Pitocin started at this time per Dr. Jarrell's ordes. 0900 - Dr. Newman at bedside. AROm done. 2(tight). Clear moderate amount of fluid noted. Pitocin increrased to 4mu. 0954 - Fentanyl given for labor back pain & contractions. Patient rating pain 6 out of 10. 1049 - Patient requesting epidural at this time. SVE 3.5/80/-1. LR bolus started. 1126 - Consent form signed for epidural at this time 1132 - Dr. Aric KLEIN at bedside for epdiural placement 1200 - Patient states she is comfortable after epidural placement. 1223 - Cr 16F placed without difficulty, draining clear yellow urine. SVE 4/80/-1. 1231 - Dr. Jarrell & Dr. Mccauley updated on patient SVE and pain control. 1315 - Patient repositioned to right lateral side. US adjusted. 1345 - Patient called RN into room, feeling some pressure, not constant or uncomfortable but patientchecked lip/rim left. Dr. Mccauley in department and updated on SVE. 1436- RN in room. Patient states she is feeling more constant pressured. Cervical checked and complete, +2 station. Patient instructed on how to push, room set up for delivery. 1438 - Pushing started at this time. 1500 - Dr. Newman called to come for delivery 1505 - Dr. Newman at bedside for delivery. Patient pushing well. 1525 - viable baby girl apgars 9 & 9. See delivery summary for details. Plan of Care - Payton Covington RN - 03/24/2016 4:36 AM CDT Problem: Goal Outcome Summary Goal: Goal Outcome Summary Outcome: No Change 0100 Patient complaining of back pain with contractions with increasing intensity. Tried heat, repositioning and birthing ball with no relief. Minor cervical change, IV fentanyl given per orders. 0340 Fluid bolus given to attempt to space out contractions 0650 Patient had some relief with use of fentanyl, able to rest more. Will continue to monitor and assess documented in this encounter Plan of Treatment Scheduled Referrals Name Type Priority Associated Diagnoses Order S chedule REFERRAL Referral Routine (spontaneous vagin al Ordered: 03/26/2016 delivery) documented as of this encounter Procedures Procedure Name Priority Date/Time Associated Comments Diagnosis HEMOGLOBIN Routine 03/25/2016 9:36 AM Results f or this CDT procedure are i n the results section. CBC WITH PLATELETS & STAT 03/23/2016 9:15 PM R esults for this DIFFERENTIAL CDT procedure are i n the results section. ANTI TREPONEMA STAT 03/23/2016 9:15 PM Results for this CDT procedure are i n the results section. ABO/RH TYPE AND STAT 03/23/2016 9:15 PM Result s for this SCREEN CDT procedure are i n the results section. GROUP B STREP PCR Routine 03/12/2016 Results fo r this procedure are i n the results section. OB HEMOGLOBIN Routine 01/13/2016 Results for th is procedure are i n the results section. RUBELLA ANTIBODY IGG Routine 09/02/2015 Results for this procedure are i n the results section. HIV ANTIGEN ANTIBODY Routine 09/02/2015 Results for this COMBO procedure are i n the results section. OB HEMOGLOBIN Routine 09/02/2015 Results for th is procedure are i n the results section. HEPATITIS B SURFACE Routine 09/02/2015 Results for this ANTIGEN procedure are i n the results section. CHLAMYDIA TRACHOMATIS Routine 09/02/2015 Result s for this PCR procedure are i n the results section. ANTIBODY SCREEN - RED Routine 09/02/2015 Result s for this CELL procedure are i n the results section. ABO AND RH Routine 09/02/2015 Results for thi s procedure are i n the results section. CBC WITH PLATELETS Routine 09/02/2015 Results f or this procedure are i n the results section. documented in this encounter Results (ABNORMAL) Hemoglobin (03/25/2016 9:36 AM CDT) athologist Signature Hemoglobin 10.6 (L) 11.7 - 15.7 [place] g/dL [facility] Specimen Anatomical Collection Method Collection Time Receive d Time (Source) Location / / Volume Laterality Blood specimen 03/25/2016 9:36 AM 016 9:48 (specimen) CDT AM CDT Maty Thomas MD LAB - BLOOD ORDERABLES Performing Organization Address City/State/ZIP Code Phon e Number M [facility] [address] [place] [address] [facility] [address] [place] [address], [place] [phone] ABO/Rh type and screen (03/23/2016 9:15 PM CDT) [facility] gist Method Time Signature ABO A [facility] RH(D) Pos [facility] Antibody Neg [place] Screen [facility] Test Valid [facility] Only At [facility] HOSPITAL Specimen 03/26/2016 [place] Expires [facility] Specimen Anatomical Collection Method Collection Time Receive d Time (Source) Location / / Volume Laterality Blood specimen 03/23/2016 9:15 PM 016 9:22 (specimen) CDT PM CDT Jackie Jarrell MD LAB - BLOOD BANK TEST ORDER Performing Organization Address City/State/ZIP Code Phon e Number M [facility] [address] [place] [address] [facility] [address] [place] [address], [place] [phone] (ABNORMAL) CBC with platelets differential (03/23/2016 9:15 PM CDT) [facility] Method Time Signature WBC 12.1 (H) 4.0 - [place] 11.0 [facility] 10e9/[facility] RBC Count 3.81 3.8 - 5.2 [place] 10e12/L [facility] Hemoglobin 12.0 11.7 - [place] 15.7 g/dL [facility] Hematocrit 34.7 (L) 35.0 - [facility] 47.0 % [facility] MCV 91 78 - 100 [place] fl [facility] MCH 31.5 26.5 - [place] 33.0 pg [facility] MCHC 34.6 31.5 - [place] 36.5 g/dL [facility] RDW 13.7 10.0 - [place] 15.0 % [facility] Platelet Count 213 150 - 450 [place] [id number] Diff Method Automated [place] Method [facility] % Neutrophils 75.6 % [facility] % Lymphocytes 12.9 % [facility] % Monocytes 7.5 % [facility] % Eosinophils 0.5 % [facility] % Basophils 0.2 % [facility] % Immature 3.3 % [place] Granulocytes [facility] Nucleated RBCs 0 0 /100 [facility] Absolute 9.2 (H) 1.6 - 8.3 [place] Neutrophil 10e9/L [facility] Absolute 1.6 0.8 - 5.3 [place] Lymphocytes 10e9/[facility] Absolute 0.9 0.0 - 1.3 [place] Monocytes 10e9/[facility] Absolute 0.1 0.0 - 0.7 [place] Eosinophils 10e9/L [facility] Absolute 0.0 0.0 - 0.2 [place] Basophils 10e9/[facility] Abs Immature 0.4 0 - 0.4 [place] Granulocytes e9[facility] Absolute 0.0 [place] Nucleated RBC [facility] Specimen Anatomical Collection Method Collection Time Receive d Time (Source) Location / / Volume Laterality Blood specimen 03/23/2016 9:15 PM 016 9:21 (specimen) CDT PM CDT Jackie Jarrell MD LAB - BLOOD ORDERABLES Performing Organization Address City/State/ZIP Code Phon e Number M [facility] [address] [place] [address] [facility] [address] [place] [address], [place] [phone] Anti Treponema (03/23/2016 9:15 PM CDT) Analysis Performed At [facility] Signature Treponema Negative NEG [facility] MEDICAL Antibody [facility] Specimen Anatomical Collection Method Collection Time Receive d Time (Source) Location / / Volume Laterality Blood specimen 03/23/2016 9:15 PM 016 9:21 (specimen) CDT PM CDT Jackie Jarrell MD LAB - BLOOD ORDERABLES Performing Organization Address City/State/ZIP Code Phon e Number [facility] [address] [place] [address] [facility] Group B strep PCR (03/12/2016) athologist Signature Group B Strep negative PCR Patient Reported LAB - MICRO GENERAL ORDERABL ES (ABNORMAL) OB hemoglobin (01/13/2016) athologist Signature Hemoglobin 11.6 (A) 11.7 - 15.7 gm/dL Specimen (Source) Anatomical Location Collection Method / Collectio n Time Received Time / Laterality Volume Blood specimen (specimen) Patient Reported LAB - BLOOD ORDERABLES Rubella Antibody IgG Quantitative (09/02/2015) Analysis Performed At [facility] Signature Rubella Antibody immune IU/mL IgG Quantitative Specimen (Source) Anatomical Location Collection Method / Collectio n Time Received Time / Laterality Volume Blood specimen (specimen) Patient Reported LAB - BLOOD ORDERABLES HIV Antigen Antibody Combo (09/02/2015) athologist Signature HIV Antigen negative Antibody Combo Specimen (Source) Anatomical Location Collection Method / Collectio n Time Received Time / Laterality Volume Blood specimen (specimen) Patient Reported LAB - BLOOD ORDERABLES OB hemoglobin (09/02/2015) athologist [facility] Hemoglobin 12.5 11.7 - 15.7 gm/dL Specimen (Source) Anatomical Location Collection Method / Collectio n Time Received Time / Laterality Volume Blood specimen (specimen) Patient Reported LAB - BLOOD ORDERABLES Hepatitis B surface antigen (09/02/2015) athologist [facility] Hep B Surface negative Agn Specimen (Source) Anatomical Location Collection Method / Collectio n Time Received Time / Laterality Volume Blood specimen (specimen) Patient Reported LAB - BLOOD ORDERABLES Chlamydia trachomatis PCR (09/02/2015) [facility] Method Time Signature Chlamydia negative Trachomatis PCR Patient Reported LAB - MICRO GENERAL ORDERABL ES Antibody screen red cell (09/02/2015) athologist [facility] Antibody negative Screen Specimen (Source) Anatomical Location Collection Method / Collectio n Time Received Time / Laterality Volume Blood specimen (specimen) Patient Reported LAB - BLOOD BANK TEST ORDER ABO and Rh (09/02/2015) athologist [facility] ABO A Positive Specimen (Source) Anatomical Location Collection Method / Collectio n Time Received Time / Laterality Volume Blood specimen (specimen) Patient Reported LAB - BLOOD BANK TEST ORDER CBC with platelets (09/02/2015) athologist [facility] Hematocrit 38.7 % Platelet Count 314 10^9/L Specimen (Source) Anatomical Location Collection Method / Collectio n Time Received Time / Laterality Volume Blood specimen (specimen) Patient Reported LAB - BLOOD ORDERABLES documented in this encounter Visit Diagnoses Diagnosis (spontaneous vaginal delivery) - [facility] Normal delivery (spontaneous vaginal delivery) Normal delivery Indication for care in labor or delivery Unspecified indication for care or inter vention related to labor and delivery, unspecified as to episode of care Supervision of high-risk Unspecified high-risk documented in this encounter Administered Medications Inactive Administered Medications - up to 3 most recent administrations Medication Order MAR Action Action Date Dose Rate Site acetaminophen (TYLENOL) tablet Given 03/26/2016 10:59 AM CDT 650 mg 650 mg 650 mg, Oral, EVERY 4 HOURS PRN, mild pain, fever, greater than or equal to 38?? C /100.4?? F (oral) or 38.5?? C/ 101.4?? F (core)., Starting on Tue03/24/16 at 1656, Maximum acetaminophen dose from all sources = 75 mg/kg/day not to exceed 4 grams/day. Given 03/26/2016 5:17 AM CDT 650 mg Given 03/25/2016 10:15 PM CDT 650 mg dinoprostone (CERVIDIL) vaginal insert 1 0 mg Given 03/23/2016 9:06 PM CDT 10 mg 10 mg, Vaginal, ONCE, On Tue03/23/16 at 2100, For 1 dose, Insert in posterior fornix. Remove after 12 hours or remove dinoprostone (CERVIDIL) for conditions stated in suppository removal order. fentaNYL (SUBLIMAZE) 2 mcg/mL New Bag 03/24/2016 11:45 AM CDT 12 m L/hr 12 mL/hr ropivacaine (NAROPIN) 0.2% in NS EPIDURAL Drip at 12 mL/hr, EPIDURAL, CONTINUOUS, Absolutely no anticoagulants, thrombolytics or antiplatelet medications or other opioid analgesics or other sedatives without prior notification of anesthesiology. For CADD cassettes, pharmacy to send epidural tubing set Ref # [id number] (5.1mL)., Starting on Tue03/24/16 at 1130, Until Tue03/24/16 at 1624 FentaNYL Citrate (PF) (SUBLIMAZE) 100 MC G/2ML injection Starting on Tue03/24/16 at 0215, For 1 dose, Lior Covington: cabinet override FentaNYL Citrate (PF) (SUBLIMAZE) injection Given 03/10 9:54 AM CDT 100 mcg 50-100 mcg 50-100 mcg, Intravenous, EVERY 1 HOUR PRN, moderate to severe pain, Starting on Tue03/24/16 at 0212 Given 03/24/2016 6:43 AM CDT 100 mcg Given 03/24/2016 5:06 AM CDT 100 mcg fentaNYL-ropivacaine Odette Wen: cabinet override Absolutely no anticoag ulants, thrombolytics or antiplatelet medications or other opioid analgesics or other sedatives without prior notification of anesthesiology. Fo r CADD cassettes, pharmacy to send epidural tubing set Ref # [id number] (5.1mL)., 1 dose, Starting on Tue03/24/16 at 1129, Until Tue03/24/16 at 1145 ibuprofen (ADVIL,MOTRIN) tablet 400-800 mg Given 03/26/2016 10:59 AM CDT 800 mg 400-800 mg, Oral, EVERY 6 HOURS PRN, other, cramping, Starting on Tue03/24/16 at 1656, Max dose 3200 mg/day. Given 03/26/2016 5:18 AM CDT 800 mg Given 03/25/2016 8:12 PM CDT 800 mg lactated ringers BOLUS 1,000 mL New Bag 03/24/2016 10:50 AM CDT 1,000 mLs Intravenous, 1,000 mL, ONCE PRN, IF patient to have epidural or intrathecal narcotics and NOT pre-eclamptic, Starting on Tue03/23/16 at 2046, For 1 dose, IV bolus 15-30 min prior to epidural, then IV fluids per labor orders lactated ringers BOLUS 500 mL New Bag 03/24/2016 3:40 AM CDT 500 mLs 999 mL/hr Intravenous, 500 mL, ONCE PRN, per policy for intrauterine resuscitation or uterine tachysystole, Starting on Tue03/23/16 at 2046, For 1 dose lactated ringers infusion New Bag 03/24/2016 12:28 PM CDT 125 mL/hr at 125 mL/hr, Intravenous, CONTINUOUS, Starting on Tue03/23/16 at 2100, Until Tue03/24/16 at 1624 New Bag 03/24/2016 8:25 AM CDT 125 mL/hr Lidocaine 1 % injection 0.1-20 mL Given by Other 03/24/2016 3:29 PM CDT 20 mLs 0.1-20 mL, Subcutaneous, ONCE PRN, episiotomy/laceration repair, Starting on Tue03/23/16 at 2046, For 1 dose, Available for provider administration after delivery. oxytocin (PITOCIN) 20 Rate/Dose Change 03/24/2016 12:15 10 shawn-un its/min 30 mL/hr units in 0.9% NaCl PM CDT 1000 mL 1-24 shawn-units/min (3-72 mL/hr), Intravenous, CONTINUOUS, Starting on Tue03/24/16 at 0730, Start infusion at 2 milliunits/min. Increase by 1-2 milliunits/min every 30 minutes as clinically indicated until contractions are 2-3 minutes apart, lasting 45 to 60 seconds in duration to achieve labor progress. Max rate is 24 milliunits/min. Do not go higher without a provider order. If Oxytocin infusion is discontinued and off for less than 30 minutes, restart infusion at half of previous Oxytocin rate. If Oxytocin infusion has been discontinued equal to or greater than 30 minutes, begin at initial dose. Rate/Dose Change 03/24/2016 10:30 AM CDT 8 shawn-units/min 24 mL/hr Rate/Dose Change 03/24/2016 9:57 AM CDT 6 shawn-units/min 18 mL/hr oxytocin (PITOCIN) 20 Rate/Dose Change 03/24/2016 3:38 PM CDT 125 m L/hr 125 mL/hr units in 0.9% NaCl 1000 mL 125 mL/hr, Intravenous, CONTINUOUS, Starting on Tue03/24/16 at 1700, Begin after delivery of placenta; IV to continue until patient stable; Discontinue or saline lock per nurse discretion. senna-docusate (SENOKOT-S;PERICOLACE) Given 03/26/2016 8:29 AM C DT 1 tablet 8.6-50 MG per tablet 1-2 tablet 1-2 tablet, Oral, 2 TIMES DAILY, First dose on Tue03/24/16 at 2000, Start with 1 tablet PO BID, If no bowel movement in 24 hours, increase to 2 tablets po BID. Hold for loose stools. Given 03/25/2016 8:12 PM CDT 1 tablet Given 03/25/2016 7:48 AM CDT 1 tablet sodium chloride (PF) 0.9% PF flush 3 mL Given 03/24/2016 7:30 AM CDT 3 mLs 3 mL, Intracatheter, EVERY 8 HOURS, First dose on Tue03/24/16 at 0730, And Q1H PRN, to lock peripheral IV dormant line. documented in this encounter Active and Recently Administered Medications Times are shown in CDT. Scheduled Medication Order 03/24/2016 03/25/2016 03/26/2016 ROPivacaine (NAROPIN) injection 10 mL (COMPLETED) 1130 (Due)1143 ([facility] - [facility] (Handoff - Provider: Odette Wen, SARAH - Comment: handed off to [facility]) 10 mL, EPIDURAL, ONCE, Tue03/24/16 at 11 30, For 1 dose, given by Anesthesia Provider only 10 mL = 20 mg senna-docusate (SENOKOT-S;PERICOLACE) 8. 6-50 MG per tablet 1-2 tablet (CANCELED) 2020 (Given - Provider: Jasmin Gomez, RN) 0748 (Give n - Provider: Neri Mccall, SARAH)2011 (Given - Provider: Madison Barth, SARAH) 0829 (Given - Provider: Jeovany Montanez, SARAH) 1-2 tablet, Oral, 2 TIMES DAILY, First d ose on Tue03/24/16 at 2000, Start with 1 tablet PO BID, If no bowel movement in 24 hours, increase to 2 tablets po BID. Hold for loose stools. sodium chloride (PF) 0.9% PF flush 3 mL (CANCELED) 073 0 (Given - Provider: Odette Wen, SARAH)1530 (Due) 3 mL, Intracatheter, EVERY 8 HOURS, Firs t dose on Tue03/24/16 at 0730, And Q1H PRN, to lock peripheral IV dormant line. Continuous Medication Order 03/24/2016 03/25/2016 03/26/2016 fentaNYL (SUBLIMAZE) 2 mcg/mL ropivacain e (NAROPIN) 0.2% in NS EPIDURAL Drip (CANCELED) 1145 (New Bag - Provider: Odette pritchard, SARAH)1529 (Stopped - Provider: Odette Wen, SARAH) at 12 mL/hr, EPIDURAL, CONTINUOUS, Absol utely no anticoagulants, thrombolytics or antiplatelet medications or other opioid analgesics or other sedatives without prior notification of anesthesiology. For CADD cassettes, pharmacy to send epidur al tubing set Ref # [id number] (5.1mL)., Starting Tue03/24/16 at 1130, Until Tue03/24/16 at 1624 lactated ringers infusion (CANCELED) 0825 (New Bag - P rovider: Odette Amauri Ottney, RN)1228 (New Bag - Provider: Odette Wen RN)1625 (Stopped - Provider: Odette Wen, RN) at 125 mL/hr, Intravenous, CONTINUOUS, S tarting Tue03/23/16 at 2100, Until Tue03/24/16 at 1624 oxytocin (PITOCIN) 20 units in 0.9% NaCl 1000 mL (CANC ELED) 0828 (New Bag - Provider: Odette Wen RN)0900 (Rate/Dose Change - Provider: Odette Wen RN)0957 (Rate/Dose Change - Provider: Odette Wen, RN)1030 (Rate/Dose Change - Provider: Odette Wen, RN) 1-24 shawn-units/min (3-72 mL/hr), Intra venous, at 3-72 mL/hr, CONTINUOUS, Starting Tue03/24/16 at 0730, Start infusion at 2 milliunits/min. Increase by 1- 2 milliunits/min every 30 minutes as clinically 1215 (Rate/Dose Change - Provider: Odette Wen RN) indicated until contractions are 2-3 mi nutes apart, lasting 45 to 60 seconds in duration to achieve labor progress. Max rate is 24 milliunits/min. Do not go higher without a provider order. If Oxytocin infusion is discontinued and off for le ss than 30 minutes, restart infusion at half of previous Oxytocin rate. If Oxytocin infusion has been discontinued equal to or greater than 30 minutes, begin at initial dose. oxytocin (PITOCIN) 20 units in 0.9% NaCl 1000 mL (CANC ELED) 1538 (Rate/Dose Change - Provider: Odette Wen RN)1730 (Stopped - Provider: Odette Wen, SARAH) 125 mL/hr, Intravenous, at 125 mL/hr, CO NTINUOUS, Starting Tue03/24/16 at 1700, Begin after delivery of placenta; IV to continue until patient stable; Discontinue or saline lock per nurse discretion. PRN Medication Order 03/24/2016 03/25/2016 03/26/2016 acetaminophen (TYLENOL) tablet 650 mg (CANCELED) 2029 (Given - Provider: Jasmin Gomez RN) 0203 (Given - Provider: Olya Hutchinson RN)0748 (Given - Provider: Neri Mccall, SARAH)1153 (Given - Provider: Neri Mccall, RN)1732 (Given - Provider: Lizz Le, SARAH)2215 (Given - Provider: Madison Barth, RN) 0517 (Given - Provider: Madison Barth, RN)1059 (Given - Provider: Jeovany Montanez, RN) 650 mg, Oral, EVERY 4 HOURS PRN, mild pa in, fever, greater than or equal to 38?? C /100.4?? F (oral) or 38.5?? C/ 101.4?? F (core)., Starting Tue03/24/16 at 1656, Maximum acetaminophen dose from all sources = 75 mg/kg/day not to exceed 4 grams/day. FentaNYL Citrate (PF) (SUBLIMAZE) injection 50-100 mcg (CANCELED) 0218 (Given - Provider: Payton Covington RN)0236 (Given - Provider: Payton Covington RN)0337 (Given - Provider: Payton Covington RN)0506 (Given - Provider: Payton Covington, SARAH)0643 (Given - Provider: Payton Covington, SARAH) 50-100 mcg, Intravenous, EVERY 1 HOUR AL N, Starting Tue03/24/16 at 0212, moderate to severe pain 0954 (Given - Provider: Odette Wen, SARAH) ibuprofen (ADVIL,MOTRIN) tablet 400-800 mg 2030 (Given - Provider: Jasmin Gomez RN) 0203 (Given - Provider: Olya Hutchinson RN)0748 (Given - Provider: Neri Mccall, SARAH)1347 (Given - Provider: Neri Mccall, RN)2012 (Given - Provider: Madison Barth, SARAH) 0518 (Given - Provider: Madison Barth, SARAH)1059 (Given - Provider: Jeovany Montanez, RN) 400-800 mg, Oral, EVERY 6 HOURS PRN, oth er, cramping, Starting Tue03/24/16 at 1656, Max dose 3200 mg/day. lactated ringers BOLUS 1,000 mL (COMPLETED) 1050 (New Bag - Provider: Odette Wen, SARAH) Intravenous, 1,000 mL, ONCE PRN, IF harmeet ent to have epidural or intrathecal narcotics and NOT pre-eclamptic, Starting 03/23/16 at 2046, For 1 dose, IV bolus 15-30 min prior to epidural, then IV fluids per labor orders lactated ringers BOLUS 500 mL (COMPLETED) 0340 (New Ba g - Provider: Payton Covington, SARAH) Intravenous, 500 mL, ONCE PRN, per polic y for intrauterine resuscitation or uterine tachysystole, Starting Tue03/23/16 at 2046, For 1 dose Lidocaine 1 % injection 0.1-20 mL (COMPLETED) 1529 (Gi ochoa by Other - Provider: Odette Wen RN - Comment: given by Dr. Newman) 0.1-20 mL, Subcutaneous, ONCE PRN, episi otomy/laceration repair, Starting Tue03/23/16 at 2046, For 1 dose, Available for provider administration after delivery. lidocaine-EPINEPHrine 1.5 %-[id number] injection 3 mL (C OMPLETED) 1140 (Given - Provider: Nick Corbett) 3 mL, EPIDURAL, ONCE PRN, test dose, Sta rting Tue03/24/16 at 1126, For 1 dose, given by Anesthesia Provider with epidural catheter insertion No Frequency Medication Order 03/24/2016 03/25/2016 03/26/2016 FentaNYL Citrate (PF) (SUBLIMAZE) 100 MCG/2ML injectio n (COMPLETED) 1130 (Due)1132 (Handoff - Provider: Odette Wen RN - Comment: handed off to [facility])1143 (Given - Provider: Nick Corbett) Starting on Tue03/24/16 at 1128, For 1 dose, Odette Wen: cabi net override documented in this encounter Care Teams Erp Specialist Relationship Specialty Start Date End Date Jackie Jarrell MD PCP - General recreation leader 11/21/15 06/07/17 [facility] [address] [place] [address] documented as of this encounter
--- OUTSIDE RECORDS SUMMARY | 2022-07-20 13:21 | XMS_ITS | Encounter Summary ---
:1985 Author Organization [place] Address [facility] [place] [address] Care Team Providers Name Role Phone Maty Barrett MD Primary Care Provider [phone] Reason for Visit Reason Onset Date Comments Medication Request 06/22/2017 Encounter Details Date Type Department Care Team Description 06/22/2017 Telephone [facility] Elsie Peters , Medication Request Clinic Sarah VILLEDA [address] [place] [address] [place] [address] [phone] (Wo rk) Social History Tobacco Use Types Packs/Day Years Used Date Smoking Tobacco: Never Smokeless Tobacco: Never Alcohol Use Standard Drinks/Week Comments No 0 (1 standard drink = 0.6 oz pure alcoho l) Sex Assigned at Date Recorded Not on file documented as of this encounter Miscellaneous Notes Telephone Encounter - Tami Bernstein LPN - 06/28/2017 2:04 PM CDT Patient returned phone call to clinic and is aware of RX sent into patient's preferred pharmacy. Shewill call if she is still having symptoms or if she needs follow-up. Tami Bernstein LPN Telephone Encounter - Tami Bernstein LPN - 06/27/2017 4:46 PM CDT Patient returned phone call and LM on nurse line. Returned her phone call and LM. Will wait for return phone call to inform her to pick-up RX. Tami Bernstein LPN Telephone Encounter - Zamzam Salgado LPN - 06/27/2017 3:20 PM CDT Left message for Makayla to call nurse to offer Detrol LA 4mg # 90 per Elsie ( see below) However it appears this was called in for her on .Zamzam Salgado LPN Telephone Encounter - Zamzam Salgado LPN - 06/27/2017 3:19 PM CDT ----- Message from Elsie Peters PA-C sent at 06/27/2017 8:18 AM CDT ----- Regarding: FW: medication Contact: We talked about this at last visit. Please call in Detrol LA 4mg daily. #90, need to see her in f/u in 3 months. Please let her know I still do not have her records from [facility] vp treasurer. ----- Message ----- From: Lyudmila Rob LPN Sent: 06/24/2017 4:51 PM To: Elsie Peters PA-C Subject: medication Brittany would like to try a medication for her frequent urination. Tami already discussed dietaryrestrictions with her. I am off on Tuesday06/27/17. Lyudmila Rob LPN Telephone Encounter - Tami Bernstein LPN - 06/22/2017 8:21 AM CDT Patient called and LM in regards to OAB symptoms. She is wondering if there is any diet recommendations she could follow. I LM for patient and will wait for return phone call. Tami Bernstein LPN documented in this encounter Plan of Treatment Not on filedocumented as of this encounter Visit Diagnoses Not on filedocumented in this encounter Care Teams Supervisor Sewing Room Relationship Specialty Start Date End Date Maty Barrett MD PCP - General marshmallow machine worker 06/08/17 [facility] [address] [facility] [address] [place] [id number] documented as of this encounter
[2022-07-20 22:35] LABS: Blood Urea Nitrogen* 10 mg/dL (5-24); Calcium* 8.9 mg/dL (8.4-10.6); Carbon Dioxide* 28 mmol/L (20-32); Chloride* 101 mmol/L (96-114); Creatinine* 0.8 mg/dL (0.5-1.5); Estimated Glomerular Filt Rate 97 ml/min; Glucose* 110 mg/dL (60-115); Potassium* 4.3 mmol/L (3.6-5.1); Sodium* 137 mmol/L (135-149); TSH With Reflex to FT4* 0.438 uIU/mL (0.270-4.200)
== END 2022-07-20 13:17 | disposition home or self-care (01) ==
PROVIDERS: Visit Provider Emergency Medicine
DX: Z01.419 Encounter for gynecological examination (general) (routine) without abnormal findings (principal); R00.2 Palpitations; R31.9 Hematuria, unspecified
CPT/HCPCS: 80048; 84443; 87086